=== PATIENT | male | born 1940 | race Caucasian/White ===

== ENCOUNTER 2017-10-17 12:43 | Inpatient (IN) | payer MEDICARE, OTHER ==
--- NOTE | 2017-10-17 17:42 | RAD ---
INDICATION: Ataxia. COMPARISON: There are no prior studies available for comparison. TECHNIQUE: Contiguous axial sections of the brain were obtained from the skull base to the vertex without contrast. FINDINGS: The ventricles, cisterns and sulci are enlarged consistent with age-related atrophy. There are small areas of decreased density in the subcortical and periventricular white matter suggestive of mild chronic small vessel ischemic changes. No mass effect is seen. There is no evidence for hemorrhage. No significant focal osseous abnormality is seen. The visualized portion of the paranasal sinuses and mastoid air cells appear clear. IMPRESSION: NO EVIDENCE FOR GROSS ACUTE INFARCT, MASS EFFECT OR HEMORRHAGE.
[2017-10-17 17:45] LABS: ABS Basophils 0 10^3/ul (0-0.2); ABS Eosinophils 0 10^3/ul (0-0.6); ABS Lymphocytes 2.2 10^3/ul (1.0-4.8); ABS Monocytes 0.9 10^3/ul (0-0.8); ABS Neutrophils 6.2 10^3/ul (1.5-7.7); ABS Nucleated RBC 0.03 10^3/ul; Eosinophil % 0.1 % (0-6); Hematocrit 45 % (42-52); Hemoglobin 15.5 g/dl (14.0-18.0); Lymphocyte % 23.4 % (25-47); Mean Corpuscular HGB Conc 35 g/dl (31-36); Mean Corpuscular Hemoglobin 29 pg (27-31); Mean Corpuscular Volume 84 fL (80-94); Mean Platelet Volume 8 um3 (7.4-10.4); Nucleated Red Blood Cells % 0.3; Platelet Count 260 10^3/ul (150-450); Red Blood Count 5.33 10^6/ul (4.0-5.4); Red Cell Distribution Width 14 % (10.5-15); White Blood Count 9.4 10^3/ul (3.5-10.8)
[2017-10-17 17:55] LABS: INR 1.49 (0.77-1.02)
[2017-10-17 18:03] LABS: EGFR Non-African American 45.6 (>60)
[2017-10-17 18:17] LABS: Monocytes % 8 % (0-13)
[2017-10-17 19:19] LABS: Urine Appearance Cloudy; Urine Blood Negative (Negative); Urine Color Amber; Urine Ketones Negative (Negative); Urine Protein 1+(30 mg/dL) (Negative); Urine Specific Gravity 1.021 (1.010-1.030); Urine Urobilinogen Positive (Negative)
--- NOTE | 2017-10-17 19:34 | RAD ---
INDICATION: Weakness. COMPARISON: Comparison is made with a prior chest x-ray study from February 01, 2016. TECHNIQUE: A portable view of the chest was obtained. FINDINGS: The heart is mildly enlarged and unchanged from the prior exam. The lungs are underinflated. There is a small infiltrate at the right lung base suggestive of atelectasis. No pleural effusion is seen. IMPRESSION: EXPIRATORY EXAM, SMALL RIGHT BASILAR FILTRATE SUGGESTIVE OF ATELECTASIS.
--- NOTE | 2017-10-17 19:54 | RAD ---
INDICATION: Weakness. COMPARISON: Comparison is made with a prior CT of the brain from October 17, 2017. TECHNIQUE: Sagittal T1, axial T1, T2, susceptibility, FLAIR and diffusion weighted images were obtained. FINDINGS: The ventricles, cisterns and sulci are prominent consistent with diffuse atrophy. There are focal areas of increased signal intensity on T2-weighted images present in the subcortical and periventricular white matter most consistent with moderate chronic small vessel ischemic changes. There is a small area of restricted diffusion measuring 6 mm in size in the posterior right parietal lobe suggestive of a small area of ischemia or a very small infarct. No other areas of restricted diffusion are noted. There is no evidence for hemorrhage. The visualized portion of the paranasal sinuses appear clear. There is a small effusion within the right mastoid air cells. IMPRESSION: 1. THERE IS A SMALL 6 MM FOCUS OF RESTRICTED DIFFUSION IN THE POSTERIOR RIGHT PARIETAL LOBE SUGGESTIVE OF A SMALL AREA OF ISCHEMIA OR INFARCT. 2. ATROPHY AND FINDINGS CONSISTENT WITH MODERATE CHRONIC SMALL VESSEL ISCHEMIC CHANGES.
--- NOTE | 2017-10-17 21:50 | ED ---
Selene Turner Gabriel, scribed for Torin Barboza MD on 10/17/17 at 1701 . Complex/Multi-Sys Presentation - HPI Summary HPI Summary: This patient is a 77 year old M presenting to [facility] accompanied by family with a chief complaint of general illness since 3 weeks ago. Patient reports congestion, loss of appetite, fatigue, cough, post nasal drip, difficulty swallowing, and unsteadiness when ambulating. Patient denies fever, urinary symptoms, and issues with bowel movements. Additionally his reports that he is unable to walk short distances due to extreme fatigue and that he is constantly falling asleep mid-day. - History Of Current Complaint Chief Complaint: EDGeneral Time Seen by Provider: 10/17/17 16:44 Hx Obtained From: Patient, Family/Label Rewinder Onset/Duration: Lasting Weeks - 3, Still Present Timing: Constant Severity Currently: Mild Severity Initially: Mild Associated Signs And Symptoms: Positive: Other - congestion, loss of appetite, fatigue, cough, post nasal drip, difficulty swallowing, and unsteadiness when ambulating - Allergies/Home Medications Allergies/Adverse Reactions: Allergies Allergy/AdvReac Type Severity Reaction Status Date / Time No Known Allergies Allergy Verified 10/17/17 14:46 Home Medications: Home Medications Apixaban* [Eliquis*] 5 mg PO BID 10/17/17 [History Confirmed 10/17/17] Diltiazem HCl Coated Beads [Diltiazem HCl ER] 180 mg PO DAILY 10/17/17 [History Confirmed 10/17/17] Fenofibrate(NF) [Tricor(NF)] 145 mg PO DAILY 10/17/17 [History Confirmed ] Glimepiride [Amaryl] 4 mg PO DAILY 10/17/17 [History Confirmed 10/17/17] Lisinopril 10 mg PO DAILY 10/17/17 [History Confirmed 10/17/17] Metformin HCl 500 mg PO BID 10/17/17 [History Confirmed 10/17/17] PMH/Surg Hx/FS Hx/Imm Hx Previously Healthy: No Endocrine/Hematology History: Reports: Hx Diabetes Denies: Hx Thyroid Disease Cardiovascular History: Reports: Hx Hypercholesterolemia, Hx Hypertension, Hx Valvular Heart Disease Denies: Hx Angina, Hx Coronary Artery Disease, Hx Myocardial Infarction Respiratory History: Denies: Hx Asthma, Hx Chronic Obstructive Pulmonary Disease (COPD) GI History: Denies: Hx Ulcer History: Reports: Hx Kidney Stones Sensory History: Reports: Hx Cataracts Opthamlomology History: Reports: Hx Cataracts - Surgical History Surgery Procedure, Year, and Place: Bladder stones Infectious Disease History: No Infectious Disease History: Denies: Hx Hepatitis, Hx Human Immunodeficiency Virus (HIV), History Other Infectious Disease, Traveled Outside the [place] in Last 30 Days - Family History Known Family History: Negative: Hypertension - Social History Lives: With Family Alcohol Use: None Substance Use Type: Reports: None Smoking Status (MU): Never Smoked Tobacco Review of Systems Positive: Fatigue, Other - loss of appetite, unsteady when ambulating . Negative: Fever Positive: Other - congestion, post nasal drip, trouble swallowing Positive: Cough Gastrointestinal: Negative - trouble with BM Positive: no symptoms reported All Other Systems Reviewed And Are Negative: Yes Physical Exam - Summary Physical Exam Summary: Appearance: The patient is well-nourished in no acute distress and in no acute pain. Gait is unsteady, patient lists to the left while sitting. Skin: The skin is warm and dry and skin color reflects adequate perfusion. HEENT: The head is normocephalic and atraumatic. The pupils are equal and reactive. The conjunctivae are clear and without drainage. Nares are patent and without drainage. Mouth reveals moist mucous membranes and the throat is without erythema and exudate. The external ears are intact. The ear canals are patent and without drainage. The tympanic membranes are intact. Neck: the neck is supple with full range of motion and non-tender. There are no carotid bruits. There is no neck vein distension. Respiratory: Chest is non-tender. Lungs are clear to auscultation and breath sounds are symmetrical and equal. Cardiovascular: Heart is regular rate and rhythm. There is no murmur or rub auscultated. There is no peripheral edema and pulses are symmetrical and equal. Abdomen: The abdomen is soft and non-tender. There are normal bowel sounds heard in all four quadrants and there is no organomegaly palpated. Musculoskeletal: There is no back tenderness noted. Extremities are non-tender with full range of motion. There is good capillary refill. There is no peripheral edema or calf tenderness elicited. Negative pronator drift Neurological: Patient is alert and oriented to person, place and time. The patient has symmetrical motor strength in all four extremities. Cranial nerves are grossly intact. Deep tendon reflexes are symmetrical and equal in all four extremities. Psychiatric: The patient has an appropriate affect and does not exhibit any anxiety or depression. Triage Information Reviewed: Yes Vital Signs On Initial Exam: Initial Vitals Temp Pulse Resp BP Pulse Ox 99.5 F 119 20 136/99 95 10/17/17 12:44 10/17/17 12:44 10/17/17 12:44 10/17/17 12:44 10/17/17 12:44 Vital Signs Reviewed: Yes - Delaney Coma Scale Coma Scale Total: 15 Diagnostics - Vital Signs Vital Signs Temp Pulse Resp BP Pulse Ox 10/17/17 14:43 100.6 F 142 22 126/76 93 10/17/17 12:44 99.5 F 119 20 136/99 95 - Laboratory Lab Results: Lab Results 10/17/17 10/17/17 10/17/17 Range/Units 17:36 17:36 17:36 WBC 9.4 (3.5-10.8) 10^3/ul RBC 5.33 (4.0-5.4) 10^6/ul Hgb 15.5 (14.0-18.0) g/dl Hct 45 (42-52) % MCV 84 (80-94) fL MCH 29 (27-31) pg MCHC 35 (31-36) g/dl RDW 14 (10.5-15) % Plt Count 260 (150-450) 10^3/ul MPV 8 (7.4-10.4) um3 Neut % (Auto) 66.2 (38-83) % Lymph % (Auto) 23.4 L (25-47) % Hinds % (Auto) 10.0 H (1-9) % Eos % (Auto) 0.1 (0-6) % Baso % (Auto) 0.3 (0-2) % Absolute Neuts (auto) 6.2 (1.5-7.7) 10^3/ul Absolute Lymphs (auto) 2.2 (1.0-4.8) 10^3/ul Absolute Monos (auto) 0.9 H (0-0.8) 10^3/ul Absolute Eos (auto) 0 (0-0.6) 10^3/ul Absolute Basos (auto) 0 (0-0.2) 10^3/ul Absolute Nucleated RBC 0.03 10^3/ul Neutrophils % 71 (38-83) % Lymphocytes % 7 L (25-47) % Reactive Lymphs % 14 H (0-6) % Monocytes % 8 (0-13) % Nucleated RBC % 0.3 Normal RBC Morphology Normal (Normal) INR (Anticoag Therapy) 1.49 H (0.77-1.02) Sodium 130 L (133-145) mmol/L Potassium 4.2 (3.5-5.0) mmol/L Chloride 94 L (101-111) mmol/L Carbon Dioxide 28 (22-32) mmol/L Anion Gap 8 (2-11) mmol/L BUN 18 (6-24) mg/dL Creatinine 1.50 H (0.67-1.17) mg/dL Est GFR ( Amer) 58.7 (>60) Est GFR (Non-Af Amer) 45.6 (>60) BUN/Creatinine Ratio 12.0 (8-20) Glucose 63 L (70-100) mg/dL Lactic Acid (0.5-2.0) mmol/L Calcium 8.7 (8.6-10.3) mg/dL Magnesium 1.8 L (1.9-2.7) mg/dL Total Bilirubin 0.80 (0.2-1.0) mg/dL AST 35 (13-39) U/L ALT 16 (7-52) U/L Alkaline Phosphatase 34 (34-104) U/L Troponin I 0.02 (<0.04) ng/mL C-Reactive Protein 98.36 H (< 5.00) mg/L Total Protein 7.0 (6.4-8.9) g/dL Albumin 3.4 (3.2-5.2) g/dL Globulin 3.6 (2-4) g/dL Albumin/Globulin Ratio 0.9 L (1-3) TSH 2.43 (0.34-5.60) mcIU/mL Urine Color Urine Appearance Urine pH (5-9) Ur Specific [place] (1.010-1.030) Urine Protein (Negative) Urine Ketones (Negative) Urine Blood (Negative) Urine Nitrate (Negative) Urine Bilirubin (Negative) Urine Urobilinogen (Negative) Ur Leukocyte Esterase (Negative) Urine WBC (Auto) (Absent) Urine RBC (Auto) (Absent) Ur Squamous Epith Cells (Absent) Urine Bacteria (Absent) Urine Glucose (Negative) 10/17/17 10/17/17 Range/Units 17:36 18:55 WBC (3.5-10.8) 10^3/ul RBC (4.0-5.4) 10^6/ul Hgb (14.0-18.0) g/dl Hct (42-52) % MCV (80-94) fL MCH (27-31) pg MCHC (31-36) g/dl RDW (10.5-15) % Plt Count (150-450) 10^3/ul MPV (7.4-10.4) um3 Neut % (Auto) (38-83) % Lymph % (Auto) (25-47) % Hinds % (Auto) (1-9) % Eos % (Auto) (0-6) % Baso % (Auto) (0-2) % Absolute Neuts (auto) (1.5-7.7) 10^3/ul Absolute Lymphs (auto) (1.0-4.8) 10^3/ul Absolute Monos (auto) (0-0.8) 10^3/ul Absolute Eos (auto) (0-0.6) 10^3/ul Absolute Basos (auto) (0-0.2) 10^3/ul Absolute Nucleated RBC 10^3/ul Neutrophils % (38-83) % Lymphocytes % (25-47) % Reactive Lymphs % (0-6) % Monocytes % (0-13) % Nucleated RBC % Normal RBC Morphology (Normal) INR (Anticoag Therapy) (0.77-1.02) Sodium (133-145) mmol/L Potassium (3.5-5.0) mmol/L Chloride (101-111) mmol/L Carbon Dioxide (22-32) mmol/L Anion Gap (2-11) mmol/L BUN (6-24) mg/dL Creatinine (0.67-1.17) mg/dL Est GFR ( Amer) (>60) Est GFR (Non-Af Amer) (>60) BUN/Creatinine Ratio (8-20) Glucose (70-100) mg/dL Lactic Acid 1.9 (0.5-2.0) mmol/L Calcium (8.6-10.3) mg/dL Magnesium (1.9-2.7) mg/dL Total Bilirubin (0.2-1.0) mg/dL AST (13-39) U/L ALT (7-52) U/L Alkaline Phosphatase (34-104) U/L Troponin I (<0.04) ng/mL C-Reactive Protein (< 5.00) mg/L Total Protein (6.4-8.9) g/dL Albumin (3.2-5.2) g/dL Globulin (2-4) g/dL Albumin/Globulin Ratio (1-3) TSH (0.34-5.60) mcIU/mL Urine Color Jessica Urine Appearance Cloudy Urine pH 5.0 (5-9) Ur Specific [place] 1.021 (1.010-1.030) Urine Protein 1+(30 mg/dl) H (Negative) Urine Ketones Negative (Negative) Urine Blood Negative (Negative) Urine Nitrate Negative (Negative) Urine Bilirubin Negative (Negative) Urine Urobilinogen Positive H (Negative) Ur Leukocyte Esterase Negative (Negative) Urine WBC (Auto) Trace(0-5/hpf) (Absent) Urine RBC (Auto) Trace(0-2/hpf) (Absent) Ur Squamous Epith Cells Present H (Absent) Urine Bacteria Absent (Absent) Urine Glucose Negative (Negative) Result Diagrams: 10/17/17 17:36 10/17/17 17:36 Lab Statement: Any lab studies that have been ordered have been reviewed, and results considered in the medical decision making process. - CT CT Brain CT Interpretation Completed By: Radiologist - NO EVIDENCE FOR GROSS ACUTE INFARCT, MASS EFFECT OR HEMORRHAGE. ED physician has reviewed this radiology report. - EKG 0354 Cardiac Rate: Tachycardia EKG Rhythm: Atrial Flutter - at 119 BPM EKG Interpretation: RBBB, RVR - Additional Comments Diagnostic Additional Comments: Brain MRI reveals, per radiologist, 1. THERE IS A SMALL 6 MM FOCUS OF RESTRICTED DIFFUSION IN THE POSTERIOR RIGHT PARIETAL LOBE SUGGESTIVE OF A SMALL AREA OF ISCHEMIA OR INFARCT. 2. ATROPHY AND FINDINGS CONSISTENT WITH MODERATE CHRONIC SMALL VESSEL ISCHEMIC CHANGES. ED physician has reviewed this radiology report. Complex Multi-Symp Course/Dx Course Of Treatment: Mr. Kaur presented with some disparate symptoms that have been present for a couple weeks. He was quite off balance when trying to sit up and/or ambulate. An MRI showed a CVA and Dr. House recommended admission for further W/U and to switch him from elliquis to anonther anticoagulant. - Diagnoses Provider Diagnoses: CVA (cerebral vascular accident) - Physician Notifications Discussed Care Of Patient With: Trevon House Time Discussed With Above Provider: 20:35 Instructed by Provider To: Other - Dr. House, neurology recommends that the patient should be admitted. Discharge - Discharge Plan Condition: Stable Disposition: ADMITTED TO [facility] Referrals: Trevon Nieves MD [Primary Care Provider] - Consult Consult: 20:42 Discussed patient care with hospitalist, Dr. Nicholson and he has agreed to admit the patient. The documentation as recorded by the Selene casillas Gabriel accurately reflects the service I personally performed and the decisions made by me, Torin Barboza MD.
[2017-10-17] MEDS ORDERED: Ondansetron INJ* 2 MG/ML VIAL IV PRN (22:01)
[2017-10-17] MEDS ORDERED: Acetaminophen TAB* 325 MG PO ONE (22:10)
[2017-10-17] MEDS ORDERED: Levofloxacin TAB* 750 MG PO SCH (23:00)
[2017-10-17] MEDS ORDERED: NS 0.9% 1000 ML* 1,000 ML IV ONE (23:36)
[2017-10-17] MEDS ORDERED: Levofloxacin 750 MG IVPREMIX(* 750 MG/150 ML BAG IVPB SCH (23:45)
[2017-10-17] MEDS ORDERED: Apixaban* 5 MG TAB PO ONE (23:45)
[2017-10-18] MEDS: NS 0.9% 1000 ML* 2,000 ML IV ONE ×2 (00:05→01:34)
[2017-10-18] MEDS: NS 0.9% 1000 ML* 1,000 ML IV SCH ×3 (00:08→20:01)
--- NOTE | 2017-10-18 01:13 | HP ---
ADMITTING HISTORY AND PHYSICAL: DATE OF ADMISSION: 10/17/17 PRIMARY CARE PROVIDER: Dr. Nieves in [place]. HEALTHCARE PROXY: . CODE STATUS: Full. SOURCE OF INFORMATION: History obtained from interview with the patient and his and the rest of his family. RELIABILITY: Fair. CHIEF COMPLAINT: Unsteady gait, decreased energy. HISTORY OF PRESENT ILLNESS: This is a 77-year-old man with a past medical history of atrial fibrillation, diabetes, hypertension, who has been in his usual state of health until approximately 2 weeks prior to presentation, started to notice decreased energy associated with decreasing sleep at night. He will frequently wake up now earlier in the morning around 5 a.m., concurrently sleep more during the day. His noticed he would wake up, eat breakfast, go right back to sleep which is new for him. Of note, he has recently had a Holter monitor and was recommended to decrease caffeine intake, stop drinking coffee; however, only constituted 1 cup for a day prior to discontinuing approximately 2 weeks prior. Around the same time, approximately 2 weeks prior, he started to notice increasing bloating associated with difficulty swallowing solids, but not liquids. Frequently he has been chewing food longer and it "feels like a constriction," but notes no choking, no pain with swallowing. Because of the difficulty in swallowing, he has been eating less over the last 2 weeks without associated diarrhea or constipation. He has been active, he hunts regularly. He has had no difficulty with ambulating; however, over the last week, his family has noted changes in his gait and now appears more shuffling and wobbly after standing. His son notes that there is a single step on their first floor and that he now uses the wall to traverse that 1 step, although the patient has not noted asymmetric weakness or changes in his gait. He has denied any lightheadedness or headache. No nausea, no diplopia, or changes in his vision. No fevers, chills, cough, chest pain, shortness of breath, or changes to medications. When seen in the emergency room, he had developed a fever to 100.3. Hospitalist service was consulted for admission. PAST MEDICAL HISTORY: 1. Type 2 diabetes. 2. Hypertension. 3. Atrial fibrillation. 4. Corneal implant. 5. Cataract surgery. 6. He had bladder stones status post removal. 7. Right eye blindness. MEDICATIONS: Reviewed: 1. Glimepiride 4 mg daily. 2. Lisinopril 10 mg daily. 3. Diltiazem ER 180 mg daily. 4. Eliquis 5 mg twice daily. 5. Metformin 500 mg twice daily. 6. TriCor 145 mg daily. ALLERGIES: No known drug allergies. FAMILY HISTORY: Mother with MS. Father with history of depression and suicide. SOCIAL HISTORY: No tobacco. Rare alcohol. Retired, educated. Active, ambulates unassisted. REVIEW OF SYSTEMS: As per HPI, includes increasing fatigue, decreased oral intake, abdominal bloating, shuffling gait, decreased balance, decreased sleep overnight with increased daytime sleepiness, odynophagia, more difficult with solid foods. Otherwise, all other systems negative. PHYSICAL EXAMINATION GENERAL: Sitting up in bed, interactive, pleasant, in no apparent distress. VITAL SIGNS: In the emergency room 126/76, heart rate between 110 and 142 in the emergency room, respiratory rate 16 when seen by this author, 92% on room air, T- max 100.6 HEENT: He has a small ulceration on the tip of his tongue. Moist mucous membranes. Sclerae are anicteric. Extraocular muscles were intact. Pupils are equal, round, and reactive to light. Palate elevates symmetrically. NECK: He has a non-elevated JVD. LUNGS: His lungs have decreased breath sounds in the left base approximately one- quarter that way. No rales or rhonchi or wheezes. Symmetric airway expansion HEART: Irregularly irregular heart rate. He is tachycardic. No murmurs, rubs , or gallops. ABDOMEN: Soft, nontender, and nondistended with positive bowel sounds. EXTREMITIES: Warm and well perfused. No clubbing, cyanosis, or edema. NEUROLOGIC: He is alert and oriented x3. His cranial nerves as tested are intact, although blind in right eye. Sensation intact. Seventh nerve intact. He has right pronator drift. He has 5/5 strength throughout. No apparent anxiety, agitation, or depression. DIAGNOSTIC STUDIES/LABORATORY DATA: Laboratory data reviewed. White blood cell count of 9.5, 66% neutrophils, hemoglobin is 15.5, platelets 260. INR is 1.49. Sodium 130, potassium 4.2, chloride 94, BUN 18, creatinine 1.5. Glucose 63 on presentation, repeat [id number] glucose 75 after interview with this author. Lactic acid 1.9. CRP 98. Troponin I 0.02. TSH is 2.4. His urine is positive for squamous epithelial cells, urobilinogen, and protein. Pertinent data reviewed: EKG atrial flutter, ventricular rate 119 on presentation, left axis. Right bundle-branch block. Chest x-ray. Formal impression: Small right basilar infiltrate suggestive of atelectasis. Brain MRI. Impression: There is a small 6-mm focus of restricted diffusion in the posterior right parietal lobe suggestive of a small area of ischemia or infarction. Atrophy and findings consistent with moderate chronic small vessel ischemic changes. ASSESSMENT AND PLAN: This is a 77-year-old man with a past medical history of atrial flutter, diabetes, hypertension presenting with constellation of symptoms including increased weakness, unsteady gait, and odynophagia, found with low-grade fever, tachycardia, and relative hypoglycemia on presentation. 1. Cerebrovascular accident. Small area of restricted diffusion, unclear if this was found incidentally or etiology of some of his symptoms; however, size of this infarct and location cannot explain constellation of his symptoms. At this point, we will continue apixaban. It was asked Neurology to consult. 2. Fever with elevated C-reactive protein. Suspect infection contributing to changes in his energy level, appetite, and potentially his gait. No active source identified; however, lung sounds are decreased in the left, not correlated with the chest x-ray. My higher suspicion is for pneumonia, either viral or bacterial. Dose Levaquin p.o., one dose now. Dose for creatinine clearance of 40. Based on ideal body weight, 750 mg every other day. Added on procalcitonin to ER labs and remains pending. 3. Hypoglycemia in the setting of glimepiride with decreased oral intake. Hypoglycemia at home may have been more severe and also been contributing to the patient's sleepiness and/or changes in gait. Holding glimepiride now. Continue metformin, fingersticks with meals. Lower blood sugar may also be in the setting of infection and worsening kidney function. 4. Acute on chronic kidney disease. Suspect in the setting of dehydration in the setting of eating less. Normal saline for 2 additional liters now. 5. Type 2 diabetes. Check hemoglobin A1c. Continue fingersticks as above. Continue metformin. Hold additional medications. 6. Odynophagia with difficulty swallowing solids. We will place on full liquid diet. Unclear if this is associated with his presentation; however, may require endoscopy for further evaluation. 7. Atrial fibrillation, tachycardic on presentation with rapid ventricular rate , improved with fluids. Suspect tachycardia in the setting of fever at this time. Fluids as above. Treat heart rates greater than 120 with additional AV amber blockade. Continue diltiazem and Eliquis. 8. Hypertension. Continue diltiazem, holding lisinopril in the setting of acute on chronic kidney disease. 9. DVT prophylaxis: Eliquis. 10. Code status is full. [id number]/CPS #: [id number] MTDD
[2017-10-18 07:14] LABS: ABS Basophils 0.1 10^3/ul (0-0.2); ABS Eosinophils 0 10^3/ul (0-0.6); ABS Lymphocytes 1.1 10^3/ul (1.0-4.8); ABS Monocytes 0.7 10^3/ul (0-0.8); ABS Neutrophils 5.2 10^3/ul (1.5-7.7); ABS Nucleated RBC 0.02 10^3/ul; Eosinophil % 0.2 % (0-6); Hematocrit 40 % (42-52); Hemoglobin 13.8 g/dl (14.0-18.0); Lymphocyte % 15.7 % (25-47); Mean Corpuscular HGB Conc 35 g/dl (31-36); Mean Corpuscular Hemoglobin 29 pg (27-31); Mean Corpuscular Volume 84 fL (80-94); Mean Platelet Volume 8 um3 (7.4-10.4); Nucleated Red Blood Cells % 0.3; Platelet Count 219 10^3/ul (150-450); Red Blood Count 4.73 10^6/ul (4.0-5.4); Red Cell Distribution Width 14 % (10.5-15); White Blood Count 7.1 10^3/ul (3.5-10.8)
[2017-10-18 07:29] LABS: EGFR Non-African American 56.8 (>60)
[2017-10-18] MEDS: Apixaban* 5 MG TAB PO SCH ×2 (08:04→20:02)
[2017-10-18] MEDS: CMCS:Fenofibrate(NF) 145 MG TAB PO SCH (08:05)
[2017-10-18] MEDS: Diltiazem CD CAP* 180 MG PO SCH (08:05)
[2017-10-18] MEDS: Acetaminophen TAB* 325 MG PO PRN ×3 (08:26→20:02)
[2017-10-18] MEDS ORDERED: metFORMIN* 500 MG TAB PO SCH (09:00)
--- NOTE | 2017-10-18 09:54 | PN ---
Subjective Date of Service: 10/18/17 Interval History: Pt is feeling quite poor. He states he has a fever currently and is sweating profusely. He feels very tired and run down. He has had 3-4 loose BMs since admission. Objective Active Medications: Acetaminophen (Tylenol Tab*) 650 mg PO Q4H PRN PRN Reason: FEVER/PAIN Last Admin: 10/18/17 08:26 Dose: 650 mg Apixaban (Eliquis*) 5 mg PO BID [facility] Last Admin: 10/18/17 08:04 Dose: 5 mg Diltiazem HCl (Cardizem Cd Cap*) 180 mg PO DAILY [facility] Last Admin: 10/18/17 08:05 Dose: 180 mg Fenofibrate (Tricor(Nf)) 145 mg PO DAILY [facility] PRN Reason: Protocol Last Admin: 10/18/17 08:05 Dose: 145 mg Sodium Chloride (Ns 0.9% 1000 Ml*) 1,000 mls @ 125 mls/hr IV PER RATE [facility] Stop: 10/19/17 06:14 Last Admin: 10/18/17 09:01 Dose: 125 mls/hr Levofloxacin/Dextrose (Levaquin 750 Mg Ivpremix(*)) 750 mg in 150 mls @ 100 mls /hr IVPB Q48H [facility] Last Admin: 10/18/17 00:10 Dose: 100 mls/hr Sodium Chloride (Ns 0.9% 1000 Ml*) 1,000 mls @ 100 mls/hr IV PER RATE [facility] Metformin HCl (Glucophage*) 500 mg PO BID [facility] Last Admin: 10/18/17 08:04 Dose: 500 mg Ondansetron HCl (Zofran Inj*) 4 mg IV Q4H PRN PRN Reason: NAUSEA/VOMITING Vital Signs - 8 hr 10/18/17 10/18/17 10/18/17 04:00 07:59 08:00 Temperature 98.1 F 101.1 F Pulse Rate 102 103 Respiratory 16 18 20 Rate Blood Pressure 117/68 110/51 (mmHg) O2 Sat by Pulse 90 94 Oximetry Oxygen Devices in Use Now: None Appearance: Elderly male lying in bed, NAD Eyes: No Scleral Icterus Ears/Nose/Mouth/Throat: Mucous Membranes Moist Respiratory: Symmetrical Chest Expansion and Respiratory Effort, Clear to Auscultation Cardiovascular: NL Sounds; No Murmurs; No JVD, No Edema, - - irregularly irregular, mildly tachycardic Abdominal: NL Sounds; No Tenderness; No Distention Extremities: No Clubbing, Cyanosis Skin: No Nodules or Sclerosis, - - approximate 1.5cm in diameter shallow ulceration overlying L zygomatic arch Result Diagrams: 10/18/17 07:01 10/18/17 07:01 Additional Lab and Data: Lab Results 10/17/17 10/17/17 10/17/17 Range/Units 17:36 17:36 17:36 WBC 9.4 (3.5-10.8) 10^3/ul RBC 5.33 (4.0-5.4) 10^6/ul Hgb 15.5 (14.0-18.0) g/dl Hct 45 (42-52) % MCV 84 (80-94) fL MCH 29 (27-31) pg MCHC 35 (31-36) g/dl RDW 14 (10.5-15) % Plt Count 260 (150-450) 10^3/ul MPV 8 (7.4-10.4) um3 Neut % (Auto) 66.2 (38-83) % Lymph % (Auto) 23.4 L (25-47) % [place] % (Auto) 10.0 H (1-9) % Eos % (Auto) 0.1 (0-6) % Baso % (Auto) 0.3 (0-2) % Absolute Neuts (auto) 6.2 (1.5-7.7) 10^3/ul Absolute Lymphs (auto) 2.2 (1.0-4.8) 10^3/ul Absolute Monos (auto) 0.9 H (0-0.8) 10^3/ul Absolute Eos (auto) 0 (0-0.6) 10^3/ul Absolute Basos (auto) 0 (0-0.2) 10^3/ul Absolute Nucleated RBC 0.03 10^3/ul Neutrophils % 71 (38-83) % Lymphocytes % 7 L (25-47) % Reactive Lymphs % 14 H (0-6) % Monocytes % 8 (0-13) % Nucleated RBC % 0.3 Normal RBC Morphology Normal (Normal) INR (Anticoag Therapy) 1.49 H (0.77-1.02) Sodium 130 L (133-145) mmol/L Potassium 4.2 (3.5-5.0) mmol/L Chloride 94 L (101-111) mmol/L Carbon Dioxide 28 (22-32) mmol/L Anion Gap 8 (2-11) mmol/L BUN 18 (6-24) mg/dL Creatinine 1.50 H (0.67-1.17) mg/dL Est GFR ( Amer) 58.7 (>60) Est GFR (Non-Af Amer) 45.6 (>60) BUN/Creatinine Ratio 12.0 (8-20) Glucose 63 L (70-100) mg/dL Lactic Acid (0.5-2.0) mmol/L Calcium 8.7 (8.6-10.3) mg/dL Magnesium 1.8 L (1.9-2.7) mg/dL Total Bilirubin 0.80 (0.2-1.0) mg/dL AST 35 (13-39) U/L ALT 16 (7-52) U/L Alkaline Phosphatase 34 (34-104) U/L Troponin I 0.02 (<0.04) ng/mL C-Reactive Protein 98.36 H (< 5.00) mg/L Total Protein 7.0 (6.4-8.9) g/dL Albumin 3.4 (3.2-5.2) g/dL Globulin 3.6 (2-4) g/dL Albumin/Globulin Ratio 0.9 L (1-3) TSH 2.43 (0.34-5.60) mcIU/mL Urine Color Urine Appearance Urine pH (5-9) Ur Specific [place] (1.010-1.030) Urine Protein (Negative) Urine Ketones (Negative) Urine Blood (Negative) Urine Nitrate (Negative) Urine Bilirubin (Negative) Urine Urobilinogen (Negative) Ur Leukocyte Esterase (Negative) Urine WBC (Auto) (Absent) Urine RBC (Auto) (Absent) Ur Squamous Epith Cells (Absent) Urine Bacteria (Absent) Urine Glucose (Negative) 10/17/17 10/17/17 Range/Units 17:36 18:55 WBC (3.5-10.8) 10^3/ul RBC (4.0-5.4) 10^6/ul Hgb (14.0-18.0) g/dl Hct (42-52) % MCV (80-94) fL MCH (27-31) pg MCHC (31-36) g/dl RDW (10.5-15) % Plt Count (150-450) 10^3/ul MPV (7.4-10.4) um3 Neut % (Auto) (38-83) % Lymph % (Auto) (25-47) % [place] % (Auto) (1-9) % Eos % (Auto) (0-6) % Baso % (Auto) (0-2) % Absolute Neuts (auto) (1.5-7.7) 10^3/ul Absolute Lymphs (auto) (1.0-4.8) 10^3/ul Absolute Monos (auto) (0-0.8) 10^3/ul Absolute Eos (auto) (0-0.6) 10^3/ul Absolute Basos (auto) (0-0.2) 10^3/ul Absolute Nucleated RBC 10^3/ul Neutrophils % (38-83) % Lymphocytes % (25-47) % Reactive Lymphs % (0-6) % Monocytes % (0-13) % Nucleated RBC % Normal RBC Morphology (Normal) INR (Anticoag Therapy) (0.77-1.02) Sodium (133-145) mmol/L Potassium (3.5-5.0) mmol/L Chloride (101-111) mmol/L Carbon Dioxide (22-32) mmol/L Anion Gap (2-11) mmol/L BUN (6-24) mg/dL Creatinine (0.67-1.17) mg/dL Est GFR ( Amer) (>60) Est GFR (Non-Af Amer) (>60) BUN/Creatinine Ratio (8-20) Glucose (70-100) mg/dL Lactic Acid 1.9 (0.5-2.0) mmol/L Calcium (8.6-10.3) mg/dL Magnesium (1.9-2.7) mg/dL Total Bilirubin (0.2-1.0) mg/dL AST (13-39) U/L ALT (7-52) U/L Alkaline Phosphatase (34-104) U/L Troponin I (<0.04) ng/mL C-Reactive Protein (< 5.00) mg/L Total Protein (6.4-8.9) g/dL Albumin (3.2-5.2) g/dL Globulin (2-4) g/dL Albumin/Globulin Ratio (1-3) TSH (0.34-5.60) mcIU/mL Urine Color Jessica Urine Appearance Cloudy Urine pH 5.0 (5-9) Ur Specific [place] 1.021 (1.010-1.030) Urine Protein 1+(30 mg/dl) H (Negative) Urine Ketones Negative (Negative) Urine Blood Negative (Negative) Urine Nitrate Negative (Negative) Urine Bilirubin Negative (Negative) Urine Urobilinogen Positive H (Negative) Ur Leukocyte Esterase Negative (Negative) Urine WBC (Auto) Trace(0-5/hpf) (Absent) Urine RBC (Auto) Trace(0-2/hpf) (Absent) Ur Squamous Epith Cells Present H (Absent) Urine Bacteria Absent (Absent) Urine Glucose Negative (Negative) Microbiology and Other Data: Microbiology 10/18/17 02:52 Stool Gross Appearance - Final Stool C. difficile DNA Amplification - Final 027 Presumptive NEGATIVE Toxigenic C.diff NEGATIVE Assess/Plan/Problems-Billing Mr Kaur is a 77 yo M who has a h/o afib, type II DM and HTN who presented to the ER with c/o unsteady gait and decreased energy and weakness and was found to have a small R posterior parietal lobe infarct and was also found to have fever. - Patient Problems (1) Fever Current Visit: Yes Status: Acute Code(s): R50.9 - FEVER, UNSPECIFIED SNOMED Code(s): 965375408 Comment: The patient has been having frequent fevers of >101. No clear source of infection has been identified yet. Will send rapid influenza swab. He has also been having diarrhea. ? gastroenteritis. Stool culture ordered. Cdiff negative. Will continue levaquin for now as there is a small R basilar infiltrate but he has not been coughing. (2) Atrial fibrillation with RVR Current Visit: Yes Status: Acute Code(s): I48.91 - UNSPECIFIED ATRIAL FIBRILLATION SNOMED Code(s): 293747199237988 Comment: THe patient remains in afib but mildly tachycardic at times. Likely related to his fever. Will continue diltiazem CD and eliquis. No adjustments at this time in his regimen. (3) HTN (hypertension) Current Visit: Yes Status: Acute Code(s): I10 - ESSENTIAL (PRIMARY) HYPERTENSION SNOMED Code(s): 20753061 Comment: BP is under good control on just diltiazem. Lisinopril on hold due to slightly elevated creatinine compared to baseline. (4) Type II diabetes mellitus Current Visit: Yes Status: Acute Comment: Sugars are low in the 60-70's. Hold all oral hypoglycemics for now and utilize just sliding scale. (5) DVT prophylaxis Current Visit: Yes Status: Acute Code(s): UYH9205 - SNOMED Code(s): 485067441 Comment: christa (6) Full code status Current Visit: Yes Status: Acute Code(s): Z78.9 - OTHER SPECIFIED HEALTH STATUS SNOMED Code(s): 351170136
[2017-10-18] MEDS ORDERED: Dextrose 50% Syringe 50 ML* 25 GM/50 ML SYRINGE IV PUSH PRN (10:14)
[2017-10-18] MEDS: Insulin LISPRO* 1 UNITS UNIT SUBCUT SCH ×2 (12:01→16:31)
--- NOTE | 2017-10-18 18:05 | RAD ---
INDICATION: Fever. COMPARISON: Comparison is made with a prior chest x-ray study from October 17, 2017. TECHNIQUE: AP and lateral views of the chest were obtained. FINDINGS: The heart is mildly enlarged and unchanged from the prior exam. There is a small right basilar infiltrate which appears unchanged. No pleural effusion is seen. IMPRESSION: SMALL RIGHT BASILAR INFILTRATE.
--- NOTE | 2017-10-18 21:38 | CONS ---
CONSULTATION REPORT: DATE OF CONSULT: 10/18/17 REQUESTING PHYSICIAN: Dr. Sorensen. CONSULTING SERVICE: Infectious Disease. REASON FOR CONSULT: Fever. IMPRESSION: 1. Two weeks of malaise and mild anorexia, admitted with worsening lethargy, malaise, gait unsteadiness, found to have a small stroke in the parietal lobe, febrile here. His blood cultures are pending. His urinalysis negative. He does not have any focal signs or symptoms. A chest x-ray showed atelectasis. He has had no cough. He has had some runny darlyn, postnasal drip. Differential diagnosis includes rhinovirus or other viral infection. Influenza was negative. He has not had much myalgia. 2. Type 2 diabetes. 3. Atrial fibrillation. RECOMMENDATION: Recheck a chest x-ray PA and lateral. We will await his blood cultures. If they are negative, we will stop the antibiotics. We will check another procalcitonin, which was negative initially, and see if there has been a change. HISTORY OF PRESENT ILLNESS: This 77-year-old man with diabetes, had a week or two of decreased appetite and malaise, spending more and more time in bed without any focal symptoms, then he came to the hospital because symptoms progressed. He was found to have a right parietal infarct on brain MRI. He is febrile here including 101 tonight and 102 last night. During the day today, he had increased energy. Appetite was pretty good for the first time, but tonight is feeling ill again. His chest x-ray showed atelectasis. He has had no leukocytosis. Procalcitonin was negative. Urinalysis showed no ketones, no blood, no leukocyte esterase. ALT is normal. He does have reactive lymphocytosis. PAST MEDICAL HISTORY: 1. Diabetes. 2. Obesity. 3. Atrial fibrillation. 4. Hypertension. 5. Corneal implant. 6. Bladder stone extraction. 7. Right eye blindness. MEDICATIONS: 1. Tylenol. 2. Apixaban. 3. Diltiazem. 4. Fenofibrate. 5. Levaquin 750 mg IV daily. 6. Zofran. ALLERGIES: No known drug allergies. FAMILY HISTORY: Father, depression, from suicide. Mother had MS. SOCIAL HISTORY: Lives in [place]. 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 No travel. No sick contacts. 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 REVIEW OF SYSTEMS: A 14-point review of systems was negative except as noted above. PHYSICAL EXAM: Vital Signs: Temperature 38, heart rate 90, respiratory rate 20 , blood pressure 120/55, O2 sat 95% on room air. In general, he is awake, not in distress. Neurologic: He is oriented x3, follows all commands. HEENT: There is no conjunctival hemorrhage. Oropharynx: Without lesions. Neck: Supple without nuchal rigidity. Lymph Nodes: There is no inguinal, axillary, or epitrochlear lymphadenopathy. Heart has regular rate and rhythm without murmurs, rubs, or gallops. Lungs are clear to auscultation bilaterally. Abdomen: Soft, nontender, nondistended. There are bowel sounds present. Skin: There is no rash or splinter hemorrhages. Musculoskeletal: There is no spine tenderness to palpation. There is no joint synovitis. There is no log roll of the hips bilaterally. LABORATORY DATA: White blood cell count 7, hemoglobin 13.8, platelets 219. Creatinine is 1.2. CRP was 98 on admission. Please see impressions and recommendations as outlined above. Thanks for asking me to see Mr. Kaur in consultation. [id number]/[facility] #: [id number] NIR
[2017-10-19] MEDS: Acetaminophen TAB* 325 MG PO PRN ×3 (05:52→22:50)
[2017-10-19] MEDS: Levofloxacin 750 MG IVPREMIX(* 750 MG/150 ML BAG IVPB SCH (05:53)
[2017-10-19 06:06] LABS: Hematocrit 38 % (42-52); Mean Corpuscular HGB Conc 34 g/dl (31-36); Mean Corpuscular Hemoglobin 29 pg (27-31); Mean Corpuscular Volume 85 fL (80-94); Mean Platelet Volume 9 um3 (7.4-10.4); Platelet Count 231 10^3/ul (150-450); Red Blood Count 4.47 10^6/ul (4.0-5.4); Red Cell Distribution Width 14 % (10.5-15); White Blood Count 7.3 10^3/ul (3.5-10.8)
[2017-10-19 06:20] LABS: EGFR Non-African American 54.3 (>60)
[2017-10-19] MEDS: Insulin LISPRO* 1 UNITS UNIT SUBCUT SCH ×3 (08:00→18:39)
[2017-10-19] MEDS: Diltiazem CD CAP* 180 MG PO SCH (08:28)
[2017-10-19] MEDS: Apixaban* 5 MG TAB PO SCH ×2 (08:28→22:47)
[2017-10-19] MEDS: CMCS:Fenofibrate(NF) 145 MG TAB PO SCH (08:29)
--- NOTE | 2017-10-19 15:07 | PN ---
Subjective Date of Service: 10/19/17 Interval History: Patient seen and examined, family at bedside. Family initially very upset, thinking the patient has some sort of colon cancer and was demanding a colonoscopy. Explained that this procedure is not clinically indicated for this admission, that there is no diarrhea, no apparent GI infection and no active bleeding at present. HgB is stable, as are VS. Patient denies fever at present but seems to have mild chills, no headache or chest pain, no SOB, no n/v/d. No further complaints. Objective Active Medications: Acetaminophen (Tylenol Tab*) 650 mg PO Q4H PRN PRN Reason: FEVER/PAIN Last Admin: 10/19/17 05:52 Dose: 650 mg Apixaban (Eliquis*) 5 mg PO BID [facility] Last Admin: 10/19/17 08:28 Dose: 5 mg Dextrose (D50w Syringe 50 Ml*) 12.5 gm IV PUSH .FOR FS < 60 - SS PRN PRN Reason: FS < 60 Diltiazem HCl (Cardizem Cd Cap*) 180 mg PO DAILY [facility] Last Admin: 10/19/17 08:28 Dose: 180 mg Fenofibrate (Tricor(Nf)) 145 mg PO DAILY [facility] PRN Reason: Protocol Last Admin: 10/19/17 08:29 Dose: 145 mg Sodium Chloride (Ns 0.9% 1000 Ml*) 1,000 mls @ 100 mls/hr IV PER RATE [facility] Last Admin: 10/18/17 20:01 Dose: 100 mls/hr Levofloxacin/Dextrose (Levaquin 750 Mg Ivpremix(*)) 750 mg in 150 mls @ 100 mls /hr IVPB Q24H [facility] Last Admin: 10/19/17 05:53 Dose: 100 mls/hr Insulin Human Lispro (Humalog*) 0 units SUBCUT AC [facility] PRN Reason: Protocol Last Admin: 10/19/17 12:34 Dose: 1 unit Ondansetron HCl (Zofran Inj*) 4 mg IV Q4H PRN PRN Reason: NAUSEA/VOMITING Vital Signs - 8 hr 10/19/17 10/19/17 10/19/17 07:47 08:00 11:22 Temperature 99.1 F 98.7 F Pulse Rate 95 88 Respiratory 22 22 20 Rate Blood Pressure 106/63 107/67 (mmHg) O2 Sat by Pulse 92 94 Oximetry Oxygen Devices in Use Now: None Appearance: Alert, NAD Eyes: No Scleral Icterus, PERRLA Ears/Nose/Mouth/Throat: NL Teeth, Lips, Gums, Mucous Membranes Moist Neck: NL Appearance and Movements; NL JVP, Trachea Midline Respiratory: Symmetrical Chest Expansion and Respiratory Effort, Clear to Auscultation Cardiovascular: NL Sounds; No Murmurs; No JVD, - - afib, controlled ventricular response Abdominal: NL Sounds; No Tenderness; No Distention Extremities: No Edema, No Clubbing, Cyanosis Skin: No Rash or Ulcers Neurological: Alert and Oriented x 3, NL Sensation, NL Muscle Strength and Tone Nutrition: Taking PO's Result Diagrams: 10/19/17 05:19 10/19/17 05:19 Additional Lab and Data: Lab Results 10/17/17 10/17/17 10/17/17 Range/Units 17:36 17:36 17:36 WBC 9.4 (3.5-10.8) 10^3/ul RBC 5.33 (4.0-5.4) 10^6/ul Hgb 15.5 (14.0-18.0) g/dl Hct 45 (42-52) % MCV 84 (80-94) fL MCH 29 (27-31) pg MCHC 35 (31-36) g/dl RDW 14 (10.5-15) % Plt Count 260 (150-450) 10^3/ul MPV 8 (7.4-10.4) um3 Neut % (Auto) 66.2 (38-83) % Lymph % (Auto) 23.4 L (25-47) % [place] % (Auto) 10.0 H (1-9) % Eos % (Auto) 0.1 (0-6) % Baso % (Auto) 0.3 (0-2) % Absolute Neuts (auto) 6.2 (1.5-7.7) 10^3/ul Absolute Lymphs (auto) 2.2 (1.0-4.8) 10^3/ul Absolute Monos (auto) 0.9 H (0-0.8) 10^3/ul Absolute Eos (auto) 0 (0-0.6) 10^3/ul Absolute Basos (auto) 0 (0-0.2) 10^3/ul Absolute Nucleated RBC 0.03 10^3/ul Neutrophils % 71 (38-83) % Lymphocytes % 7 L (25-47) % Reactive Lymphs % 14 H (0-6) % Monocytes % 8 (0-13) % Nucleated RBC % 0.3 Normal RBC Morphology Normal (Normal) INR (Anticoag Therapy) 1.49 H (0.77-1.02) Sodium 130 L (133-145) mmol/L Potassium 4.2 (3.5-5.0) mmol/L Chloride 94 L (101-111) mmol/L Carbon Dioxide 28 (22-32) mmol/L Anion Gap 8 (2-11) mmol/L BUN 18 (6-24) mg/dL Creatinine 1.50 H (0.67-1.17) mg/dL Est GFR ( Amer) 58.7 (>60) Est GFR (Non-Af Amer) 45.6 (>60) BUN/Creatinine Ratio 12.0 (8-20) Glucose 63 L (70-100) mg/dL Lactic Acid (0.5-2.0) mmol/L Calcium 8.7 (8.6-10.3) mg/dL Magnesium 1.8 L (1.9-2.7) mg/dL Total Bilirubin 0.80 (0.2-1.0) mg/dL AST 35 (13-39) U/L ALT 16 (7-52) U/L Alkaline Phosphatase 34 (34-104) U/L Troponin I 0.02 (<0.04) ng/mL C-Reactive Protein 98.36 H (< 5.00) mg/L Total Protein 7.0 (6.4-8.9) g/dL Albumin 3.4 (3.2-5.2) g/dL Globulin 3.6 (2-4) g/dL Albumin/Globulin Ratio 0.9 L (1-3) TSH 2.43 (0.34-5.60) mcIU/mL Urine Color Urine Appearance Urine pH (5-9) Ur Specific [place] (1.010-1.030) Urine Protein (Negative) Urine Ketones (Negative) Urine Blood (Negative) Urine Nitrate (Negative) Urine Bilirubin (Negative) Urine Urobilinogen (Negative) Ur Leukocyte Esterase (Negative) Urine WBC (Auto) (Absent) Urine RBC (Auto) (Absent) Ur Squamous Epith Cells (Absent) Urine Bacteria (Absent) Urine Glucose (Negative) 10/17/17 10/17/17 Range/Units 17:36 18:55 WBC (3.5-10.8) 10^3/ul RBC (4.0-5.4) 10^6/ul Hgb (14.0-18.0) g/dl Hct (42-52) % MCV (80-94) fL MCH (27-31) pg MCHC (31-36) g/dl RDW (10.5-15) % Plt Count (150-450) 10^3/ul MPV (7.4-10.4) um3 Neut % (Auto) (38-83) % Lymph % (Auto) (25-47) % [place] % (Auto) (1-9) % Eos % (Auto) (0-6) % Baso % (Auto) (0-2) % Absolute Neuts (auto) (1.5-7.7) 10^3/ul Absolute Lymphs (auto) (1.0-4.8) 10^3/ul Absolute Monos (auto) (0-0.8) 10^3/ul Absolute Eos (auto) (0-0.6) 10^3/ul Absolute Basos (auto) (0-0.2) 10^3/ul Absolute Nucleated RBC 10^3/ul Neutrophils % (38-83) % Lymphocytes % (25-47) % Reactive Lymphs % (0-6) % Monocytes % (0-13) % Nucleated RBC % Normal RBC Morphology (Normal) INR (Anticoag Therapy) (0.77-1.02) Sodium (133-145) mmol/L Potassium (3.5-5.0) mmol/L Chloride (101-111) mmol/L Carbon Dioxide (22-32) mmol/L Anion Gap (2-11) mmol/L BUN (6-24) mg/dL Creatinine (0.67-1.17) mg/dL Est GFR ( Amer) (>60) Est GFR (Non-Af Amer) (>60) BUN/Creatinine Ratio (8-20) Glucose (70-100) mg/dL Lactic Acid 1.9 (0.5-2.0) mmol/L Calcium (8.6-10.3) mg/dL Magnesium (1.9-2.7) mg/dL Total Bilirubin (0.2-1.0) mg/dL AST (13-39) U/L ALT (7-52) U/L Alkaline Phosphatase (34-104) U/L Troponin I (<0.04) ng/mL C-Reactive Protein (< 5.00) mg/L Total Protein (6.4-8.9) g/dL Albumin (3.2-5.2) g/dL Globulin (2-4) g/dL Albumin/Globulin Ratio (1-3) TSH (0.34-5.60) mcIU/mL Urine Color Jessica Urine Appearance Cloudy Urine pH 5.0 (5-9) Ur Specific [place] 1.021 (1.010-1.030) Urine Protein 1+(30 mg/dl) H (Negative) Urine Ketones Negative (Negative) Urine Blood Negative (Negative) Urine Nitrate Negative (Negative) Urine Bilirubin Negative (Negative) Urine Urobilinogen Positive H (Negative) Ur Leukocyte Esterase Negative (Negative) Urine WBC (Auto) Trace(0-5/hpf) (Absent) Urine RBC (Auto) Trace(0-2/hpf) (Absent) Ur Squamous Epith Cells Present H (Absent) Urine Bacteria Absent (Absent) Urine Glucose Negative (Negative) Microbiology and Other Data: Microbiology 10/18/17 02:52 Stool Gross Appearance - Final Stool C. difficile DNA Amplification - Final 027 Presumptive NEGATIVE Toxigenic C.diff NEGATIVE Diagnostic Imaging: Patient Name: DEBRA KAUR Medical Record#: [id number] Ordering Physician: Torin Barboza MD Acct.#: [id number] : 1940 Age: 77 Sex: M Location: EMERGENCY DEPARTMENT Exam Date: 10/17/171858 ADM Status: REG ER Order Information: MRI BRAIN W/O Accession Number: [id number] CPT: 90486 INDICATION: Weakness. COMPARISON: Comparison is made with a prior CT of the brain from October 17, 2017. TECHNIQUE: Sagittal T1, axial T1, T2, susceptibility, FLAIR and diffusion weighted images were obtained. FINDINGS: The ventricles, cisterns and sulci are prominent consistent with diffuse atrophy. There are focal areas of increased signal intensity on T2-weighted images present in the subcortical and periventricular white matter most consistent with moderate chronic small vessel ischemic changes. There is a small area of restricted diffusion measuring 6 mm in size in the posterior right parietal lobe suggestive of a small area of ischemia or a very small infarct. No other areas of restricted diffusion are noted. There is no evidence for hemorrhage. The visualized portion of the paranasal sinuses appear clear. There is a small effusion within the right mastoid air cells. IMPRESSION: 1. THERE IS A SMALL 6 MM FOCUS OF RESTRICTED DIFFUSION IN THE POSTERIOR RIGHT PARIETAL LOBE SUGGESTIVE OF A SMALL AREA OF ISCHEMIA OR INFARCT. 2. ATROPHY AND FINDINGS CONSISTENT WITH MODERATE CHRONIC SMALL VESSEL ISCHEMIC CHANGES. <Electronically signed by Ruben Murray MD in OV> 10/17/171949 Dictated By: Ruben Murray MD Dictated Date/Time: 10/17/171949 Transcribed Date/Time: 10/17/171930 Copy to: CC:Trevon Nieves MD; Torin Barboza MD Imaging - [facility] Imaging - [facility] Imaging - [facility] [address] [place] [address] ph ([phone]) ph ([phone]) ph ([phone]) 1 of 1 Assess/Plan/Problems-Billing Mr Kaur is a 77 yo M who has a h/o afib, type II DM and HTN who presented to the ER with c/o unsteady gait and decreased energy and weakness, found to have small parietal CVA, and fever/malaise which is likely viral in nature. - Patient Problems (1) CVA (cerebral vascular accident) Code(s): I63.9 - CEREBRAL INFARCTION, UNSPECIFIED SNOMED Code(s): 573648717 Comment: - Neurology consult appreciated - Lipid panel today, optimize LDL<70 - US carotids and cardiac ECHO (2) Atrial fibrillation with RVR Code(s): I48.91 - UNSPECIFIED ATRIAL FIBRILLATION SNOMED Code(s): 212671245134581 Comment: - Rate controlled on cardizem cd180 daily - Continue eliquis for now (3) Fever Code(s): R50.9 - FEVER, UNSPECIFIED SNOMED Code(s): 827332164 Comment: - Influenza negative - Small right basilar infiltrate on CXR? - Likely Viral etiology/bronchitis - Will continue levaquin daily for now - trend WBCs and temps - Stools negative (4) HTN (hypertension) Code(s): I10 - ESSENTIAL (PRIMARY) HYPERTENSION SNOMED Code(s): 53710667 Comment: - Continue cardizem - hold lisinopril, follow renal fx (5) Type II diabetes mellitus Comment: - Monitor BG AC and HS with insulin SS Status and Disposition: Continue inpatient for close monitoring.
--- NOTE | 2017-10-19 18:44 | RAD ---
INDICATION: Cerebrovascular accident. COMPARISON: Comparison is made with a prior study from September 12, 2006. TECHNIQUE: Multiple grayscale, color and Doppler tracings of the common, internal and external carotid and vertebral arteries were obtained. Stenosis estimations reflect velocity criteria that it been correlated to angiographic stenosis calculations based on the distal internal carotid diameter. The exam is limited due to the patient's body habitus. RIGHT CAROTID: There is no plaque within the right carotid artery. The peak systolic velocity in the proximal right internal carotid artery is 62 cm/s and the maximum end-diastolic velocity is 10 cm/s. The peak systolic velocity in the distal right common carotid artery is 99 cm/s and the maximum end-diastolic velocity is 17 cm/s. The internal to common carotid artery ratio is 0.6. This would be consistent with a closed to a 0% stenosis. LEFT CAROTID: There is no plaque within the left carotid artery. The peak systolic velocity in the proximal left internal carotid artery is 53 cm/s and the maximum end-diastolic velocity is 17 cm/s. The peak systolic velocity in the distal left common carotid artery is 83 cm/s and the maximum end-diastolic velocity is 16 cm/s. The internal to common carotid artery ratio is 0.6. This would be consistent with a close to a 0% stenosis. VERTEBRALS: There is antegrade flow in both vertebral arteries. IMPRESSION: LIMITED STUDY, NO EVIDENCE FOR CAROTID STENOSIS. CPT II Codes: 3100F
[2017-10-19] MEDS: NS 0.9% 1000 ML* 1,000 ML IV SCH (22:47)
--- NOTE | 2017-10-19 23:23 | CONS ---
CONSULTATION REPORT: DATE OF CONSULT: 10/19/17 PATIENT OF: Dr. Nieves. HISTORY: This 77-year-old man I am asked to consult on because of recent stroke as well as fatigue and weakness. He has had about a 2 to 3-week history of decreasing energy with decreasing sleep at night, he wakes up early and is not rested. He has also had some bloating with this. On admission, he had some fever, but he had no fever prior to this. He has had no focal numbness or weakness. He has had some balance problems that has been slowly getting worse. Over many months, he has not fallen, and he has had more than 20-year history of diabetes PAST MEDICAL HISTORY: He has a history of type 2 diabetes, hypertension, atrial fibrillation, cataract surgery, corneal implant, left eye blindness. He has had bladder stones removed. He has hyperlipidemia. MEDICATIONS: On admission include: 1. Tricor 145 mg daily. 2. Metformin 500 mg twice daily. 3. Eliquis 5 mg twice daily. 4. Diltiazem ER 180 mg daily. 5. Lisinopril 10 mg daily. 6. Glimepiride 4 mg daily. ALLERGIES: He has no known drug allergies. FAMILY HISTORY: His mother and son with multiple sclerosis. His father has history of depression and committed suicide. SOCIAL HISTORY: He does not smoke, he drinks alcohol rarely. He has no substance abuse. 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 REVIEW OF SYSTEMS: Includes fatigue. No new visual symptoms. Abdominal bloating, daytime sleepiness. PHYSICAL EXAM: Temperature 98.7, pulse 88, respirations 20, blood pressure 107/ 67. He is alert and oriented with normal speech and comprehension. He could answer sophisticated questions such as not only did he know he was in the hospital, but he knew he was on the 4th floor. Cranial nerves II through XII are intact other than his decreased vision in his left eye. He had no visual field cut or neglect. Motor exam revealed normal tone and strength. He had no significant pronator drift. He has slightly wide-based stance. He had reflexes one and equal, toes are downgoing. Sensation is intact to light touch. He had no diminishment to double simultaneous stimulation. Chest: Clear. Cardiovascular: Regular rate and rhythm. Abdomen: Soft. He was somewhat obese. DIAGNOSTIC STUDIES/LAB DATA: I reviewed his MRI scan, which showed prominent white matter disease. A small acute or subacute infarct in his right parietal area. There was also some mild atrophy. I reviewed the films both with the Hospitalist, but also with the son. Labs include white count of 7.3, hematocrit 38, platelets of 231. INR 1.49. Normal BMP other than creatinine of 1.29. C-reactive protein was 88, had been 98 on admission and normal liver function test. TSH 2.43. Hemoglobin A1c was 7.1. Lyme titers and influenza A and B were negative. IMPRESSION: I discussed that his symptoms of general fatigue, global feeling of lack of energy were not related to his right parietal stroke. I think most likely that this is asymptomatic and most likely secondary to his small vessel ischemic disease noted. Also it is possible, I discussed with the son and the Hospitalist that some of the white matter plaque could be due to asymptomatic multiple sclerosis, but this would be impossible to prove one way or the other and most likely this is but seen on MRI screen is most likely due to chronic ischemic disease. I have recommended this to the Hospitalist an LDL to see if his medical treatment needs to be changed at all in this regard. He also should get a carotid Doppler and then if there is any abnormality then we may get CTA or MRA but his creatinine runs on the high side and so I would do noninterventional study first. He has had a recent echo in the past 10 days, which perhaps did not show plaque. Hospitalist will track this down and I defer to the Hospitalist's final decision as towhether to switch the Eliquis to some other anticoagulation. I think that the stroke appearance may be in keeping with the small vessel disease and not be cardioembolic but it is impossible to say for sure. Also, I am recommending that he get sleep apnea testing if he has sleep apnea, it may be exacerbating his cardiovascular risk factors. I will also be glad to see him in the office, I could evaluate his balance further at that time as well. We could conceivably get nerve conduction studies. Thank you for sharing his case. [id number]/[facility] #: [id number] NIR
--- NOTE | 2017-10-19 23:50 | PN ---
Progress Note - Progress Note Date of Service: 10/19/17 Note: Cross cover note: SpO2 decreased to 88% improved to 92% on 2L O2 Normal saline running at 100cc/hr stopped.
[2017-10-20] MEDS: Levofloxacin 750 MG IVPREMIX(* 750 MG/150 ML BAG IVPB SCH (07:05)
[2017-10-20] MEDS: CMCS:Fenofibrate(NF) 145 MG TAB PO SCH (09:19)
[2017-10-20] MEDS: Diltiazem CD CAP* 180 MG PO SCH (09:19)
[2017-10-20] MEDS: Apixaban* 5 MG TAB PO SCH (09:19)
[2017-10-20] MEDS: Insulin LISPRO* 1 UNITS UNIT SUBCUT SCH ×2 (09:20→12:39)
[2017-10-20] MEDS: Acetaminophen TAB* 325 MG PO PRN (09:20)
[2017-10-20 11:41] VITALS: BP 111/70
--- NOTE | 2017-10-21 02:28 | DS ---
AMENDED REPORT NOW INCLUDES COSIGNER DESIGNATION - ESIGNED BEFORE ADJUSTMENTS CC: CC: Dr. Trevon Nieves * DISCHARGE SUMMARY: DATE OF ADMISSION: 10/17/17 DATE OF DISCHARGE: 10/20/17 PRIMARY CARE PROVIDER: Dr. Trevon Nieves. ATTENDING PHYSICIAN DURING HOSPITALIZATION: Dr. Clarke Nicholson * (DICTATED BY BOUBACAR CONN, ROVERTO) CONSULTANTS INVOLVED IN THIS PATIENT'S CARE: Neurology, Dr. Trevon House. HOSPITAL COURSE: This is a very pleasant 77-year-old male patient who was admitted on 10/17/17 with complaint of some unsteady gait and lethargy. The patient was brought in by his family, primarily his and his children. They stated that for approximately 2 weeks prior to him presenting in the emergency department, they noticed a gradual decline in his energy and difficulty sleeping, supervisor winter waking and some new behaviors that did not seem right to him. He was also having some bowel issues and then had some fevers at home, diarrhea, constipation, overall gait changes and just not feeling like himself. When he came into the ER, his flu swab was negative, but he still had some fevers happening and CAT scan and MRI of his brain revealed a small CVA. The patient was admitted and seen by Neurology, Dr. Trevon House. Of important note, the patient does have history of aflutter and atrial fibrillation and is on Eliquis, so he was being anticoagulated. Records of his prior echocardiogram and bubble tests were obtained to see if he had any clots in the atria of the heart that would be the source of his stroke. These were obtained from about 10 days prior that were done as outpatient. They were both negative for any clots in the heart. Lipids also showed as well as an ultrasound of the carotids that they were negative for any carotid stenosis and lipid profile showed that his numbers were in good range, so the etiology of the stroke is unclear. He persisted with his viral illness. He was seen by Infectious Disease as well. He was placed on Levaquin to cover him for what seemed to be a small right lower lobe infiltration; however, we were not impressed enough to call this a pneumonia; however, with his fever spiking at over 102, we still covered him for pneumonia with Levaquin, but it was more likely that this was viral in nature and just happened to correlate with the symptom that the patient had a stroke. He was medically stabilized and cleared for discharge, cleared by Neurology on 10/20/17. On the day of discharge, the patient had no acute complaints. Denied any fever, fatigue, or chills. No chest pain. No shortness of breath. No nausea. No vomiting. No diarrhea. No fevers or chills. Last T-max was under 100, so he has been essentially afebrile for 24 hours. PHYSICAL EXAMINATION: The patient is awake and alert, no acute distress. Vital signs today were temperature 98.0, pulse 96, respiratory rate 18, oxygen saturation 94% on room air, and blood pressure 111/70. LABORATORY DATA: Laboratories done on 10/19, WBCs 7.3, RBCs 4.47, hemoglobin 13 , hematocrit 38, INR 1.49, and glucose fluctuating anywhere from 138 to 203. Triglycerides 205, cholesterol 75, LDL 25, HDL 8.7. MEDICATIONS AT THE TIME OF DISCHARGE: Include: 1. Tylenol 650 mg q.8 hours as needed for fever. 2. Eliquis 5 mg one tablet 2 times daily. 3. Diltiazem 180 mg one time daily. 4. Fenofibrate 145 mg one tablet daily. 5. Levaquin 500 mg one tablet daily for 3 days. REFERRALS AND FOLLOWUPS: The patient was instructed to follow up with his primary care provider, Dr. Trevon Nieves. Appointment was made for him on October 25. The patient was also instructed to follow up with [facility] for outpatient physical therapy. The patient declined to have physical therapy in home and was referred for outpatient PT for gait training and strength training. The patient was also instructed and this was also communicated to his primary care provider's office that the patient should have an outpatient sleep study as it was felt and this was discussed with Neurology as well that perhaps the patient has an underlying sleep apnea disorder, which may have also contributed to his current condition with the CVA. Again, the patient was discharged in stable condition under the care of his family. All questions were answered. The patient verbalized his understanding of his followups and his medications at the time of discharge as did his family. His is his [id number]. Sons and daughters were also present at the time of discharge and plan of care was agreed upon the patient was discharged in their care. BOUBACAR CONN, GRADER PATROL [id number]/[facility] #: [id number] [facility] HOSPITALChinyere
--- NOTE | 2017-10-21 04:14 | PN ---
NEUROLOGICAL FOLLOWUP NOTE: DATE OF VISIT: 10/20/17 HISTORY: Mr. Kaur feels like he is much stronger and less fatigued today than he did previously and he is pleased with how he feels. His whole family is happy as well. His medications remained unchanged including TriCor, metformin, Eliquis, diltiazem, lisinopril, and glimepiride. He has no known drug allergies. There is no change in family, social history, and rest of review of systems. On exam, temperature 98, pulse 110, respirations 18, blood pressure 111/70. He is alert and oriented with normal speech and comprehension. Cranial nerves II through XII are intact. Fundi showed sharp discs. Motor exam revealed normal tone and strength. Chest clear. Cardiovascular, regular rate and rhythm. Abdomen, soft with positive bowel sounds. His carotid ultrasound showed no significant stenosis; I discussed this with him and his family. I reiterated that his small stroke is unlikely to have anything to do with his generalized symptoms. He is going to continue with his anticoagulation and does not need any modification to treating his cholesterol, his LDL was only 25. I reemphasized that he should have a sleep study as outpatient and make sure he does not have sleep apnea and that I would see him back in followup including for his balance issues. He is going to be hooked up with physical therapy as an outpatient as well. I have discussed this case with his hospitalist. Thank you for sharing his care. [id number]/[facility] [place]: [id number] NIR
== END 2017-10-20 15:37 | disposition home or self-care (01) | DRG 65 ==
LOC: ED 12:43 → MEDTELE 22:01
PROVIDERS: ADMIT Internal Medicine; ATTEND Internal Medicine
DX: I63.9 Cerebral infarction, unspecified (principal); J98.11 Atelectasis; E11.22 Type 2 diabetes mellitus with diabetic chronic kidney disease; E11.649 Type 2 diabetes mellitus with hypoglycemia without coma; I48.91 Unspecified atrial fibrillation; R13.10 Dysphagia, unspecified; D72.820 Lymphocytosis (symptomatic); B97.89 Other viral agents as the cause of diseases classified elsewhere; Z94.7 Corneal transplant status; I45.10 Unspecified right bundle-branch block; R40.2412 Glasgow coma scale score 13-15, at arrival to emergency department; E78.00 Pure hypercholesterolemia, unspecified; I12.9 Hypertensive chronic kidney disease with stage 1 through stage 4 chronic kidney disease, or unspecified chronic kidney disease; R53.83 Other fatigue; R26.81 Unsteadiness on feet; R19.7 Diarrhea, unspecified; K59.00 Constipation, unspecified; N18.9 Chronic kidney disease, unspecified; R09.82 Postnasal drip; E66.9 Obesity, unspecified; R53.1 Weakness; R50.9 Fever, unspecified; E78.5 Hyperlipidemia, unspecified; Z98.42 Cataract extraction status, left eye; Z98.41 Cataract extraction status, right eye; Z87.442 Personal history of urinary calculi; Z81.8 Family history of other mental and behavioral disorders; Z68.36 Body mass index [BMI] 36.0-36.9, adult; Z79.01 Long term (current) use of anticoagulants; H54.61 Unqualified visual loss, right eye, normal vision left eye
CPT/HCPCS: 36415; 70450; 70551; 71010; 71020; 80048; 80053; 80061; 81003; 81015; 83036; 83605; 83735; 84145; 84443; 84484; 85025; 85027; 85610; 86038; 86140; 86618; 87040; 87493; 87502; 93005; 93880; A9270-GY

== ENCOUNTER 2017-10-25 16:45 | Emergency (ER) | payer MEDICARE, OTHER ==
--- NOTE | 2017-10-25 16:52 | CONSULT ---
Consult Consult: Pt as seen for CAT call. Pt was noted to have AMS after CT abd with IV contrast. His neuro status showed a specific way of speaking as if pt were intoxicated, he was oriented x 2, Slow to respond, diaphoretic. Motor 5/5 b/l no problems following commands. BG was 44. Pt ate and was treated with 1/2 amp of D50, within minutes his speech was back to normal. AAOx3 Pt was brought to the ED and signed off to . Family aware
[2017-10-25 17:29] LABS: ABS Basophils 0.1 10^3/ul (0-0.2); ABS Eosinophils 0 10^3/ul (0-0.6); ABS Lymphocytes 2.1 10^3/ul (1.0-4.8); ABS Monocytes 0.7 10^3/ul (0-0.8); ABS Nucleated RBC 0.03 10^3/ul; Eosinophil % 0.1 % (0-6); Hematocrit 43 % (42-52); Hemoglobin 14.1 g/dl (14.0-18.0); Lymphocyte % 31.1 % (25-47); Mean Corpuscular HGB Conc 33 g/dl (31-36); Mean Corpuscular Hemoglobin 28 pg (27-31); Mean Corpuscular Volume 85 fL (80-94); Mean Platelet Volume 7 um3 (7.4-10.4); Nucleated Red Blood Cells % 0.4; Platelet Count 334 10^3/ul (150-450); Red Cell Distribution Width 15 % (10.5-15); White Blood Count 6.8 10^3/ul (3.5-10.8)
[2017-10-25 17:31] LABS: INR 1.22 (0.77-1.02)
[2017-10-25 17:40] LABS: EGFR Non-African American 52.9 (>60)
[2017-10-25 18:24] VITALS: BP 100/55
--- NOTE | 2017-10-26 11:34 | ED ---
Ricki Turner Angela, scribed for Torin Barboza MD on 10/25/17 at 1725 . Altered Mental Status - HPI Summary HPI Summary: This pt is a 77 y/o male presenting to [facility] for sudden AMS during CT abdomen/ pelvis with IV contrast today. Pt had a different way of speaking, was slow to respond, and diaphoretic, per Dr. Arias. Fingerstick blood glucose was 44. Pt was given 2 cans of juice and 1/2 amp D50 and is now asymptomatic. Pt was getting a CT scan to rule out GI bleed due to pt's symptoms of intermittent bloody stools for several months. PMHx includes diabetes. - History Of Current Complaint Chief Complaint: EDDiabeticProb Stated Complaint: GI ISSUE Time Seen by Provider: 10/25/17 16:52 Onset/Duration: Resolved Timing: Lasting Minutes Severity Currently: None Character: Confusion Aggravating Factor(s): Unknown Alleviating Factor(s): Other - 1/2 amp D50 and can of juice Associated Signs And Symptoms: Positive: Negative - Allergies/Home Medications Allergies/Adverse Reactions: Allergies Allergy/AdvReac Type Severity Reaction Status Date / Time No Known Allergies Allergy Verified 10/17/17 14:46 Home Medications: Home Medications metFORMIN* [Glucophage 500 MG TAB *] 500 mg PO BID 10/25/17 [History Confirmed 10/25/17] PMH/Surg Hx/FS Hx/Imm Hx Endocrine/Hematology History: Reports: Hx Diabetes Denies: Hx Thyroid Disease Cardiovascular History: Reports: Hx Hypercholesterolemia, Hx Hypertension, Hx Valvular Heart Disease Denies: Hx Angina, Hx Coronary Artery Disease, Hx Myocardial Infarction, Hx Pacemaker/ICD Respiratory History: Denies: Hx Asthma, Hx Chronic Obstructive Pulmonary Disease (COPD) GI History: Denies: Hx Ulcer History: Reports: Hx Kidney Stones Sensory History: Reports: Hx Cataracts, Hx Contacts or Glasses Denies: Hx Hearing Aid Opthamlomology History: Reports: Hx Cataracts, Hx Contacts or Glasses Psychiatric History: Denies: Hx Panic Disorder - Surgical History Surgery Procedure, Year, and Place: Bladder stones. PILONIDAL CYST REMOVED Infectious Disease History: No Infectious Disease History: Denies: Hx Hepatitis, Hx Human Immunodeficiency Virus (HIV), History Other Infectious Disease, Traveled Outside the [place] in Last 30 Days - Family History Known Family History: Negative: Hypertension - Social History Alcohol Use: None Substance Use Type: Reports: None Smoking Status (MU): Never Smoked Tobacco Review of Systems Negative: Fever, Chills Cardiovascular: Negative Respiratory: Negative Gastrointestinal: Negative Genitourinary: Negative Musculoskeletal: Negative Skin: Negative Neurological: Other - NEG: AMS All Other Systems Reviewed And Are Negative: Yes Physical Exam - Summary Physical Exam Summary: Appearance: The patient is well-nourished in no acute distress and in no acute pain. Skin: The skin is warm and dry and skin color reflects adequate perfusion. HEENT: The head is normocephalic and atraumatic. The pupils are equal and reactive. The conjunctivae are clear and without drainage. Nares are patent and without drainage. Mouth reveals moist mucous membranes and the throat is without erythema and exudate. The external ears are intact. The ear canals are patent and without drainage. The tympanic membranes are intact. Neck: the neck is supple with full range of motion and non-tender. There are no carotid bruits. There is no neck vein distension. Respiratory: Chest is non-tender. Lungs are clear to auscultation and breath sounds are symmetrical and equal. Cardiovascular: Heart is regular rate and rhythm. There is no murmur or rub auscultated. There is no peripheral edema and pulses are symmetrical and equal. Abdomen: The abdomen is soft and non-tender. There are normal bowel sounds heard in all four quadrants and there is no organomegaly palpated. Musculoskeletal: There is no back tenderness noted. Extremities are non-tender with full range of motion. There is good capillary refill. There is no peripheral edema or calf tenderness elicited. Neurological: Patient is alert and oriented to person, place and time. The patient has symmetrical motor strength in all four extremities. Cranial nerves are grossly intact. Deep tendon reflexes are symmetrical and equal in all four extremities. Psychiatric: The patient has an appropriate affect and does not exhibit any anxiety or depression. Triage Information Reviewed: Yes Vital Signs On Initial Exam: Initial Vitals Temp Pulse Resp BP Pulse Ox 98.5 F 95 18 109/70 95 10/25/17 16:50 10/25/17 16:50 10/25/17 16:50 10/25/17 16:50 10/25/17 16:50 Vital Signs Reviewed: Yes - [place] Coma Scale Coma Scale Total: 15 Diagnostics - Vital Signs Vital Signs Temp Pulse Resp BP Pulse Ox 01/03/18 16:50 98.5 F 95 18 109/70 95 - Laboratory Lab Results: Lab Results 10/25/17 10/25/17 10/25/17 Range/Units 17:05 17:05 17:05 WBC 6.8 (3.5-10.8) 10^3/ul RBC 5.00 (4.0-5.4) 10^6/ul Hgb 14.1 (14.0-18.0) g/dl Hct 43 (42-52) % MCV 85 (80-94) fL MCH 28 (27-31) pg MCHC 33 (31-36) g/dl RDW 15 (10.5-15) % Plt Count 334 (150-450) 10^3/ul MPV 7 L (7.4-10.4) um3 Neut % (Auto) 58.4 (38-83) % Lymph % (Auto) 31.1 (25-47) % Glenn % (Auto) 9.7 H (1-9) % Eos % (Auto) 0.1 (0-6) % Baso % (Auto) 0.7 (0-2) % Absolute Neuts (auto) 4.0 (1.5-7.7) 10^3/ul Absolute Lymphs (auto) 2.1 (1.0-4.8) 10^3/ul Absolute Monos (auto) 0.7 (0-0.8) 10^3/ul Absolute Eos (auto) 0 (0-0.6) 10^3/ul Absolute Basos (auto) 0.1 (0-0.2) 10^3/ul Absolute Nucleated RBC 0.03 10^3/ul Nucleated RBC % 0.4 INR (Anticoag Therapy) 1.22 H (0.77-1.02) Sodium 131 L (133-145) mmol/L Potassium 4.7 (3.5-5.0) mmol/L Chloride 98 L (101-111) mmol/L Carbon Dioxide 28 (22-32) mmol/L Anion Gap 5 (2-11) mmol/L BUN 13 (6-24) mg/dL Creatinine 1.32 H (0.67-1.17) mg/dL Est GFR ( Amer) 68.0 (>60) Est GFR (Non-Af Amer) 52.9 (>60) BUN/Creatinine Ratio 9.8 (8-20) Glucose 105 H (70-100) mg/dL POC Glucose (mg/dL) (70-100) mg/dL Calcium 8.7 (8.6-10.3) mg/dL Total Bilirubin 0.60 (0.2-1.0) mg/dL AST 34 (13-39) U/L ALT 15 (7-52) U/L Alkaline Phosphatase 25 L (34-104) U/L C-Reactive Protein 13.81 H (< 5.00) mg/L Total Protein 6.9 (6.4-8.9) g/dL Albumin 2.8 L (3.2-5.2) g/dL Globulin 4.1 H (2-4) g/dL Albumin/Globulin Ratio 0.7 L (1-3) 10/25/17 Range/Units 17:28 WBC (3.5-10.8) 10^3/ul RBC (4.0-5.4) 10^6/ul Hgb (14.0-18.0) g/dl Hct (42-52) % MCV (80-94) fL MCH (27-31) pg MCHC (31-36) g/dl RDW (10.5-15) % Plt Count (150-450) 10^3/ul MPV (7.4-10.4) um3 Neut % (Auto) (38-83) % Lymph % (Auto) (25-47) % Glenn % (Auto) (1-9) % Eos % (Auto) (0-6) % Baso % (Auto) (0-2) % Absolute Neuts (auto) (1.5-7.7) 10^3/ul Absolute Lymphs (auto) (1.0-4.8) 10^3/ul Absolute Monos (auto) (0-0.8) 10^3/ul Absolute Eos (auto) (0-0.6) 10^3/ul Absolute Basos (auto) (0-0.2) 10^3/ul Absolute Nucleated RBC 10^3/ul Nucleated RBC % INR (Anticoag Therapy) (0.77-1.02) Sodium (133-145) mmol/L Potassium (3.5-5.0) mmol/L Chloride (101-111) mmol/L Carbon Dioxide (22-32) mmol/L Anion Gap (2-11) mmol/L BUN (6-24) mg/dL Creatinine (0.67-1.17) mg/dL Est GFR ( Amer) (>60) Est GFR (Non-Af Amer) (>60) BUN/Creatinine Ratio (8-20) Glucose (70-100) mg/dL POC Glucose (mg/dL) 101 H (70-100) mg/dL Calcium (8.6-10.3) mg/dL Total Bilirubin (0.2-1.0) mg/dL AST (13-39) U/L ALT (7-52) U/L Alkaline Phosphatase (34-104) U/L C-Reactive Protein (< 5.00) mg/L Total Protein (6.4-8.9) g/dL Albumin (3.2-5.2) g/dL Globulin (2-4) g/dL Albumin/Globulin Ratio (1-3) Result Diagrams: 10/25/17 17:05 10/25/17 17:05 Lab Statement: Any lab studies that have been ordered have been reviewed, and results considered in the medical decision making process. Altered Mental Statu Course/Dx - Course Course Of Treatment: Mr. Kaur had a hypoglycemic episode and was brought to the ED. He is completely improved on arrival. He has been feeling quite bad for weeks and has had bloody stools. He was just admitted for a CVA and is on eliquis. He was treated with levoquin during his recent hospitalization as it was felt that his general malaise was unlikely to be from the CVA. Labs were checked here and WNL; he hasn't lost a lot of blood. He takes his hypoglycemic in the evening and I asked him to hold it tonight and to call his PMD in the AM for further advice. - Diagnoses Discharge Diagnoses: Hypoglycemia Discharge - Discharge Plan Condition: Stable Disposition: HOME Patient Education Materials: Hypoglycemia in a Person with Diabetes (ED) Referrals: Trevon Nieves MD [Primary Care Provider] - As Soon As Possible Additional Instructions: Please follow up with Dr. Nieves. CALL HIS OFFICE TOMORROW TO SCHEDULE AN APPOINTMENT. RETURN TO THE ED FOR ANY WORSENING SYMPTOMS. The documentation as recorded by the Ricki casillas Angela accurately reflects the service I personally performed and the decisions made by me, Torin Barboza MD.
--- NOTE | 2017-10-26 12:39 | PN ---
Progress Note - Progress Note Date of Service: 10/26/17 Note: Patient occult blood was positive. patient was seen in ED for such and is being follow by primary for bloody stools so no further action is needed at this time.
== END 2017-10-25 18:22 | disposition home or self-care (01) ==
LOC: ED 16:45
DX: E11.649 Type 2 diabetes mellitus with hypoglycemia without coma (principal); Z86.79 Personal history of other diseases of the circulatory system; Z87.442 Personal history of urinary calculi
CPT/HCPCS: 36415; 80053; 82272; 85025; 85610; 86140; 99282

== ENCOUNTER 2017-12-14 07:57 | Day surgery (SDC) | payer MEDICARE, OTHER ==
[~2017-12-14 07:57] MED LIST: Buffered Lidocaine 0.9% SYRIN* 5 ML/SYR SYRINGE INTRADERM ONE
[2017-12-14] MEDS ORDERED: Buffered Lidocaine 0.9% SYRIN* 5 ML/SYR SYRINGE ONE (08:18)
[2017-12-14] MEDS ORDERED: ceFAZolin 2 GM in 100 MLS NS (*) BAG IVPB ONE (08:31)
[2017-12-14] MEDS ORDERED: Lidocaine 1% MPF wEPI 200,000* 30 ML SDV ONE (09:36)
[2017-12-14] MEDS ORDERED: Mineral Oil Sterile, TOPICAL* 25 ML BTL ONE (09:37)
[2017-12-14] MEDS ORDERED: fentaNYL* 50 MCG/ML 2 ML VIAL (100 MCG VIAL) ONE ×2 (09:43→10:37)
[2017-12-14] MEDS ORDERED: Midazolam* 1 MG/ML 2 ML VIAL (2 MG) ONE ×2 (09:43→10:35)
[2017-12-14] MEDS ORDERED: Naloxone* 0.4 MG/ML 1 ML VIAL IV PRN (10:09)
[2017-12-14 12:03] VITALS: BP 117/71
== END 2017-12-14 12:00 | disposition home or self-care (01) ==
LOC: OR 07:57
PROVIDERS: ATTEND Plastic Surgery
DX: C43.39 Malignant melanoma of other parts of face (principal); I48.92 Unspecified atrial flutter; Z79.01 Long term (current) use of anticoagulants; I71.9 Aortic aneurysm of unspecified site, without rupture; I45.10 Unspecified right bundle-branch block; Z87.891 Personal history of nicotine dependence; E11.9 Type 2 diabetes mellitus without complications; Z79.84 Long term (current) use of oral hypoglycemic drugs; I10 Essential (primary) hypertension; Z86.73 Personal history of transient ischemic attack (TIA), and cerebral infarction without residual deficits
CPT/HCPCS: 88305; A9270-GY; J2001; J2250; J3010

== ENCOUNTER 2018-01-23 05:58 | Inpatient (IN) | payer MEDICARE, OTHER ==
--- NOTE | 2018-01-18 21:14 | HP ---
CC: Dr. Gibbons; Dr. Trevon Nieves * PREOPERATIVE HISTORY AND PHYSICAL: DATE OF ADMISSION/SURGERY: 01/23/18 This patient is scheduled for AA admission by Dr. Hoang on 01/23/18. DATE OF PREOPERATIVE HISTORY AND PHYSICAL EXAMINATION: 01/17/18. ATTENDING SURGEON: Dr. Michoacano Hoang * (dictated by Isha Owusu NP) CHIEF COMPLAINT: Colon cancer. 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 He completed a colonoscopy with Dr. Shane with findings of a large sigmoid colon polyp, which was pedunculated. He had a second procedure for biopsy as he is maintained on anticoagulation. The site was tattooed; pathology reveals invasive adenocarcinoma. He completed CAT scan of the abdomen and pelvis with no evidence of lymphadenopathy. He is recommended to undergo laparoscopic sigmoid colectomy by Dr. Hoang. Dr. Hoang described the nature of the surgical procedure, the rationale for the procedure, the relevant risks and benefits, and today I reviewed the typical hospitalization and the postoperative care and recovery. The patient has had a chance to ask questions and stated that he understands the information and is satisfied with the answers given to his questions. He will sign surgical consent on the day of surgery. He will take a bowel cleansing prep consisting of clear liquids, Colyte laxative, neomycin, and metronidazole on the day before surgery and neomycin and metronidazole on the morning of surgery. He has been cleared by Dr. Gibbons from Cardiology to proceed with surgery and as recommended, his Eliquis will be held for 3 days preoperatively. 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 PAST SURGICAL HISTORY: Excision of pilonidal cyst, lithotripsy for ureteral calculi, excision of melanoma on his face, and right cataract extraction with implant. MEDICATIONS: 1. Diltiazem CD 180 mg 1 tablet p.o. daily. 2. Lisinopril 10 mg 1 tablet p.o. daily. 3. Eliquis 5 mg p.o. b.i.d. and he will take his last dose on 01/19/18. 4. Metformin 500 mg p.o. b.i.d. and he will hold that 1 day preoperatively while he is on the bowel cleansing prep. 5. Fenofibrate 145 mg p.o. daily. 6. Glimepiride 4 mg p.o. daily. 7. Omeprazole 20 mg p.o. daily. 8. Levofloxacin 500 mg p.o. daily. ALLERGIES: No known drug allergies. FAMILY HISTORY: Mother at age 65 with multiple sclerosis. Father with a history of depression and suicide. 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 He is currently a nonsmoker. He rarely consumes alcohol and denies the use of other substances. REVIEW OF SYSTEMS: Constitutional: Appetite has been fairly good; he deliberately lost 25 pounds since September 2017 to help control type 2 diabetes. He denies any excessive fatigue or fevers or chills. He was hospitalized at [facility] in September 2017 with balance issues and was in atrial fib, atrial flutter on admission. A brain MRI revealed a small 6- mm focus suggestive of area of ischemia or infarction and he was diagnosed with small CVA. He was also having difficulty swallowing at that time. All of those symptoms resolved and he currently denies any difficulty swallowing or gait difficulties. Endocrine: He is a type 2 diabetic. He does not currently check fingerstick blood sugars at home. He denies any thyroid disease. Hematologic: No easy bruising or bleeding while on the Eliquis; he has never received a blood transfusion. Respiratory: No dyspnea on exertion. No chronic cough. No history of pneumonia. Cardiovascular: He was cleared to proceed with surgery by Dr. Gibbons; he denies any chest pain or palpitations. He denies any dizziness or syncopal episodes. His echocardiogram in September 2017 revealed ejection fraction of 50% to 55%; he has chronic atrial fib, flutter with the well-controlled heart rate. He has well controlled hypertension; he has chronic right bundle branch block with EKG at Dr. Gibbons's office on 01/12/18, showing atrial flutter with heart rate of 77, nonspecific T changes. Nuclear stress test done in [address] Gibbons did not feel that he needed any further cardiac testing at the present time. Dr. Gibbons agreed with the plan to hold the Eliquis 2 to 3 days preoperatively and resume when it is safe to do so. Gastrointestinal: No nausea, vomiting, diarrhea. No GI bleeding. He does have occasional constipation and use of Senokot with good effect. Genitourinary: No dysuria. He does have a history of ureteral calculi and follows with Dr. Werner annually. Musculoskeletal: No complaints of back or joint pain. Neurologic: No deficits. No difficulty swallowing. No gait disturbances at this time. General: No history of deep vein thrombosis or pulmonary embolism. He reports that when he had spinal anesthesia, he experienced some difficulty breathing. PHYSICAL EXAMINATION GENERAL SURVEY: The patient is a 78-year-old male, overweight, well developed, in no acute distress. VITAL SIGNS: Height 67 inches, weight 213 pounds, body mass index 33.4. Blood pressure 112/68, pulse 66 and regular, respiratory rate 18, temperature 97.6 tympanic. HEENT: Benign. NECK: Supple. No JVD, no carotid bruits, no cervical lymphadenopathy. LUNGS: Breath sounds bilaterally clear and equal. HEART: Irregularly irregular, S1, S2. No murmurs or rubs. ABDOMEN: Active bowel sounds. Soft, nondistended, nontender throughout. No obvious masses, organomegaly, or evidence of ventral hernia. GENITALIA EXAM: Deferred. RECTAL EXAM: Deferred. EXTREMITIES: Full range of motion, 5/5 strength. No edema. No cyanosis. No skin ulcerations. NEUROLOGIC: No focal deficits. Steady gait. Alert and oriented x3. SKIN: Warm, dry, intact. IMPRESSION: Malignant neoplasm of sigmoid colon. PLAN: AA admission to Dr. Hoang' service on 01/23/18, for laparoscopic sigmoid colectomy. The patient will take a bowel cleansing prep on the day before surgery as described in history of present illness. He will hold Eliquis for 3 days preoperatively taking the last dose 01/19/18. TIME SPENT: [id number] history taking and coordination of care 60 minutes. RANDI OWUSU NP [id number]/[facility] #: [id number] NIR
[~2018-01-23 05:58] MED LIST changes: +ERTApenem 1 GM in 50 mL NS IVPB ONE
[2018-01-23] MEDS ORDERED: Scopolamine 1.5 mg* PATCH TRANSDERM ONE (06:00)
[2018-01-23] MEDS ORDERED: Famotidine IV* 10 MG/ML 2 ML (20 mg) IV ONE (06:00)
[2018-01-23] MEDS ORDERED: Famotidine IV* 10 MG/ML 2 ML (20 mg) ONE (06:05)
[2018-01-23] MEDS ORDERED: Scopolamine 1.5 mg* PATCH ONE (06:06)
[2018-01-23] MEDS ORDERED: Ertapenem* 1 GM in NS 0.9% 50 ML* 50 ML IVPB ONE (07:00)
[2018-01-23] MEDS ORDERED: Heparin VIAL(*) 5000 UNITS/ML VIAL (FIVE THOUSAND) ONE (07:01)
[2018-01-23] MEDS ORDERED: fentaNYL* 50 MCG/ML 2 ML VIAL (100 MCG VIAL) ONE ×7 (07:04→13:35)
[2018-01-23] MEDS ORDERED: Lidocaine 2% PF * 5 ML VIAL ONE (07:04)
[2018-01-23] MEDS ORDERED: Propofol* 10 MG/ML 20 ML BTL IV PUSH ONE (07:04)
[2018-01-23] MEDS ORDERED: Midazolam* 1 MG/ML 2 ML VIAL (2 MG) ONE (07:04)
[2018-01-23] MEDS ORDERED: Rocuronium* 10 MG/ML VIAL ONE ×2 (07:04→09:14)
[2018-01-23 07:14] LABS: INR 0.93 (0.77-1.02)
[2018-01-23] MEDS ORDERED: Bupivacaine 0.25% SDV* 30 ML ONE (07:16)
[2018-01-23] MEDS ORDERED: Ketorolac INJ* 30 MG/ML 1 ML VIAL ONE ×2 (08:32→14:01)
[2018-01-23] MEDS ORDERED: Acetaminophen IV 1GM/100ML * 1,000 MG/100 ML VIAL IVPB ONE (08:48)
[2018-01-23] MEDS ORDERED: Naloxone* 0.4 MG/ML 1 ML VIAL IV PRN (08:48)
[2018-01-23] MEDS ORDERED: PROCHLORPERAZINE INJ 5 MG/ML 2 ML VIAL IV PRN (08:48)
[2018-01-23] MEDS ORDERED: Phenylephrine INJ* 10 MG/ML 1 ML VIAL (10 MG) ONE (10:01)
[2018-01-23] MEDS ORDERED: Ondansetron INJ* 2 MG/ML VIAL ONE ×2 (12:14→14:04)
[2018-01-23] MEDS ORDERED: Neostigmine Methylsulfate* 1 MG/ML 10 ML VIAL (1 mg/ml) ONE (12:18)
[2018-01-23] MEDS ORDERED: Glycopyrrolate IV* 0.2 MG/ML 1 ML VIAL ONE (12:18)
--- NOTE | 2018-01-23 12:48 | OP ---
Operative Report - Blank - Operative Report Date of Operation: 01/23/18 Note: Pre-op Diagnosis: Sigmoid carcinoma Post-op Diagnosis:Sigmoid carcinoma Procedure: Laparoscopic assisted sigmoid colectomy Anesthesia: GET Surgeon: Dr. Hoang Assist: Dr. Gore; RACHEL Moyer; SAUD Shultz Fluids: 3200 cc LR EBL: 100 cc Specimen: Sigmoid colon Findings: dictated Drains: none
[2018-01-23] MEDS ORDERED: Metoprolol Tartrate IV* 1 MG/ML 5 ML VIAL ONE (12:51)
[2018-01-23] MEDS ORDERED: Morphine INJ* 10 MG/ML 1 ML CARPUJECT ONE (13:20)
[2018-01-23] MEDS ORDERED: Dextrose 50% Syringe 50 ML* 25 GM/50 ML SYRINGE IV PUSH PRN (13:20)
[2018-01-23] MEDS: fentaNYL* 50 MCG/ML 2 ML VIAL (100 MCG VIAL) IV PRN ×3 (13:23→13:38)
[2018-01-23] MEDS ORDERED: Morphine INJ* 4 MG/ML 1 ML SYRINGE (NEW SYRINGE VERSION) IV PRN (13:23)
[2018-01-23] MEDS ORDERED: Morphine INJ* 2 MG/ML 1 ML CARPUJECT IV PRN ×2 (13:23→14:01)
[2018-01-23] MEDS: Morphine INJ* 2 MG/ML 1 ML CARPUJECT IV PRN ×2 (13:25→13:31)
[2018-01-23] MEDS ORDERED: Ondansetron INJ* 2 MG/ML VIAL IV PRN (13:25)
[2018-01-23] MEDS ORDERED: Acetaminophen IV 1GM/100ML * 100 ML ONE (14:01)
[2018-01-23] MEDS ORDERED: PROCHLORPERAZINE INJ 5 MG/ML 2 ML VIAL ONE (14:04)
[2018-01-23] MEDS: Ketorolac INJ* 30 MG/ML 1 ML VIAL IV PRN (14:08)
[2018-01-23] MEDS: Heparin VIAL(*) 5000 UNITS/ML VIAL (FIVE THOUSAND) SUBCUT SCH ×2 (15:37→22:39)
[2018-01-23] MEDS ORDERED: Morphine VIAL* 4 MG/ML VIAL (1 ml vial) IV PRN (16:56)
[2018-01-23] MEDS: Insulin LISPRO* 1 UNITS UNIT SUBCUT SCH ×2 (18:27→23:57)
[2018-01-23] MEDS: Diltiazem CD CAP* 180 MG PO SCH (18:31)
[2018-01-24] MEDS: Insulin LISPRO* 1 UNITS UNIT SUBCUT SCH ×4 (05:33→17:45)
[2018-01-24] MEDS: Heparin VIAL(*) 5000 UNITS/ML VIAL (FIVE THOUSAND) SUBCUT SCH ×3 (05:37→22:46)
[2018-01-24 05:39] LABS: ABS Basophils 0 10^3/ul (0-0.2); ABS Eosinophils 0 10^3/ul (0-0.6); ABS Lymphocytes 2.1 10^3/ul (1.0-4.8); ABS Neutrophils 5.4 10^3/ul (1.5-7.7); ABS Nucleated RBC 0 10^3/ul; Eosinophil % 0.5 % (0-6); Hematocrit 37 % (42-52); Hemoglobin 12.7 g/dl (14.0-18.0); Lymphocyte % 24.5 % (25-47); Mean Corpuscular HGB Conc 35 g/dl (31-36); Mean Corpuscular Hemoglobin 30 pg (27-31); Mean Corpuscular Volume 87 fL (80-94); Mean Platelet Volume 7.5 um3 (7.4-10.4); Nucleated Red Blood Cells % 0.1; Platelet Count 236 10^3/ul (150-450); Red Blood Count 4.21 10^6/ul (4.0-5.4); Red Cell Distribution Width 15 % (10.5-15); White Blood Count 8.6 10^3/ul (3.5-10.8)
[2018-01-24 05:55] LABS: EGFR Non-African American 62.5 (>60)
[2018-01-24] MEDS: Ketorolac INJ* 30 MG/ML 1 ML VIAL IV PRN ×2 (08:04→14:00)
[2018-01-24] MEDS ORDERED: Pneumococcal *Vac Polyvalent 0.5 ML VIAL IM ONE (09:00)
--- NOTE | 2018-01-24 09:35 | PN ---
Progress Note - Progress Note Date of Service: 01/24/18 Note: Subjective: Mr. Kaur is S/P day 1 of a laparoscopic assisted sigmoid colectomy. He is doing well and rates his pain as a 0/10. He denies chest pain, palpitations, SOB , N/V, and abdominal pain. Current Medications Acetaminophen (Tylenol Tab*) 650 mg PO Q4H PRN PRN Reason: Pain Or Temperature >101 F Dextrose (D50w Syringe 50 Ml*) 12.5 gm IV PUSH .FOR FS < 60 - SS PRN PRN Reason: FS < 60 Diltiazem HCl (Cardizem Cd Cap*) 180 mg PO QPM [facility] Last Admin: 01/23/18 18:31 Dose: 180 mg Heparin Sodium (Porcine) (Heparin Vial(*)) 5,000 units SUBCUT Q8HR [facility] Last Admin: 01/24/18 05:37 Dose: 5,000 units Lactated Ringer's (Lactated Ringers 1000 Ml Bag*) 1,000 mls @ 175 mls/hr IV .per rate [facility] Last Admin: 01/24/18 05:37 Dose: 150 mls/hr Insulin Human Lispro (Humalog*) 0 units SUBCUT Q6HR [facility] PRN Reason: Protocol Last Admin: 01/24/18 05:33 Dose: Not Given Ketorolac Tromethamine (Toradol Inj*) 15 mg IV Q6H PRN PRN Reason: PAIN Stop: 01/25/18 13:15 Last Admin: 01/24/18 08:04 Dose: 15 mg Morphine Sulfate (Morphine Vial*) 4 mg IV Q2H PRN PRN Reason: moderate to severe pain Last Admin: 01/23/18 17:17 Dose: 4 mg Ondansetron HCl (Zofran Inj*) 4 mg IV Q6H PRN PRN Reason: NAUSEA Last Admin: 01/23/18 14:09 Dose: 4 mg Pharmacy Profile Note (Scopolamine Patch Remove*) 1 note PATCH OFF ONCE ONE Stop: 01/26/18 06:01 Objective: Vital Signs: Temp Pulse Resp BP Pulse Ox 98.4 F 73 20 101/54 94 01/24/18 04:00 01/24/18 04:00 01/24/18 07:19 01/24/18 04:00 01/24/18 07:19 Physical Exam: General: WDWN male in NAD. CV: RRR w/o MRG. GI: Abdomen is flat, non-distended, and non-tender to light palpation. Hypoactive BS. Dressings over the surgical site are dry, intact, and without drainage. Dressings were changed last evening 01/24. Assessment & Plan: Mr. Kaur is s/p day 1 of a laparoscopic assisted sigmoid colectomy. Patient is doing well without pain at this time. Continue pain management and dressing changes.
--- NOTE | 2018-01-24 14:49 | OP ---
CC: Greg Velazquez MD; Trevon Nieves MD * DATE OF SURGERY: 01/23/18 - ROOM #336 DATE OF : 44 SURGEON: Michoacano Hoang MD ASSISTANTS: 1. Lan Gore MD. 2. RACHEL Rocha ANESTHESIOLOGIST: Dr. Savage. ANESTHESIA: General endotracheal. PREOPERATIVE DIAGNOSIS: Sigmoid colon carcinoma. POSTOPERATIVE DIAGNOSIS: Sigmoid colon carcinoma. OPERATIVE PROCEDURE: Laparoscopic assisted sigmoid colectomy. ESTIMATED BLOOD LOSS: Less than 50 mL. IV FLUIDS: Crystalloids. SPECIMEN: Sigmoid colon. DRAINS: None. COMPLICATIONS: None. COUNTS: The instrument, needle, sponge counts were correct. DESCRIPTION OF PROCEDURE: The patient was brought to the operating room and placed on the table supine. Sequential compression devices were placed on both lower extremities. General anesthesia was administered. A [place] catheter was placed. He was positioned "split-leg" on the operating table. Rectal irrigation was performed with Betadine solution until clear. The patient was then prepped and draped in the usual sterile fashion. He received appropriate intravenous antibiotics. A time- out was performed. Local anesthetic was infiltrated in the skin and soft tissue prior to each incision. Entry to the abdomen was through a supraumbilical incision created vertically. After using the open technique to access the peritoneal cavity, a 12- mm trocar was placed and carbon dioxide was insufflated to a pressure of 15 mmHg. With a camera, a 5-mm 30-degree laparoscope was used. Under direct visualization, 5-mm trocars were placed in the right lower quadrant, left lower quadrant, and suprapubic midline. Eventually, the right lower quadrant was exchanged for 12-mm bladeless trocar in order to place staplers. Mobilization proceeded with identification of tattooing in the pelvis at the level of the distal sigmoid/upper rectum. The patient had some adhesions of epiploic appendages to the lateral side wall which were taken down with LigaSure. Mobilization proceeded along the white line of Toldt, medializing the sigmoid colon and descending colon up to and including the splenic flexure takedown. Dissection proceeded by identifying and preserving the left ureter and the dissection proceeded down into the pelvis, scoring the peritoneum along the left side of the rectum. The peritoneum was then scored on the right side and dissection proceeded in the plane to create a window between the bowel and the mesentery at the rectosigmoid junction and then the bowel was divided with the EndoGIA stapler with purple cartridge. The mesentery was then divided with a combination of LigaSure and staplers, progressing proximally. After adequately mobilizing the colon, an incision was created periumbilically and the specimen was exteriorized. The PRINCESS pedicle was identified and this was divided with a stapler through the incision after having placed an Matthieu retractor. Subsequently, the proximal margin of resection was identified within the area of the descending colon and the mesentery was divided incrementally to the site with a LigaSure. The bowel was then divided, and proximally the bowel was sized for a 31 mm EEA stapler. A 31 mm 4.5 stapler anvil was used and pursestring of 2-0 Prolene was used to secure this in the proximal bowel. The bowel and anvil were returned to the abdominal cavity. The midline wound was closed with interrupted #1 Vicryl suture and pneumoperitoneum was reestablished with a 5-mm trocar placed through the midline wound. Religion of the continuity of the bowel was performed using a double staple technique with EEA stapler and the anastomosis was then inspected using the bubble leak test and there was no leak identified. Hemostasis was assured and the ports were removed under direct visualization. Carbon dioxide was released. Skin incisions were closed with maryann and dressings applied. The patient tolerated the procedure well, was extubated uneventfully, and transferred to the recovery room in stable condition. [id number]/[facility] #: [id number] NIR
[2018-01-24] MEDS ORDERED: Scopolamine PATCH Remove* 1 NOTE MISC PATCH OFF ONE (16:00)
[2018-01-24] MEDS: Diltiazem CD CAP* 180 MG PO SCH (18:07)
[2018-01-24] MEDS: Acetaminophen TAB* 325 MG PO PRN (18:08)
--- NOTE | 2018-01-24 18:31 | PN ---
Progress Note - Progress Note Date of Service: 01/24/18 Note: Surgery Progress: S: POD #1. Patient seen this a.m. ~ 1000. Denies sig pain, though more discomfort at present after ambulation. No N/V. No BM or flatus. Would like Medellin removed if possible. O: Vital Signs - 8 hr 01/24/18 01/24/18 01/24/18 11:48 14:15 15:18 Temperature 99.0 F 99.0 F Pulse Rate 72 72 Respiratory 22 16 Rate Blood Pressure 108/61 109/59 (mmHg) O2 Sat by Pulse 94 95 95 Oximetry 01/24/18 16:00 Temperature Pulse Rate Respiratory Rate Blood Pressure (mmHg) O2 Sat by Pulse 95 Oximetry Intake and Output Last 24 Hours 01/22/18 01/23/18 01/24/18 01/25/18 06:59 06:59 06:59 06:59 Intake Total 5910 873 Output Total 845 600 Balance 5065 273 Weight 208 lb 12.8 oz Intake: IV Fluids 5270 518 LR 5220 518 NS 50ML, Ertopenin 1G 50 Oral 640 355 Output: Urine 150 [place] 845 450 Other: # Bowel Movements 0 Gen: NAD Heart: reg Lungs: clear Abd: Incisions ok; no sig drainage. BS+. Soft, min tenderness to palp. Extr: no edema; SCDs in place Labs: Laboratory Tests 01/24/18 01/24/18 01/24/18 05:14 05:27 12:01 WBC 8.6 Hgb 12.7 L POC Glucose (mg/dL) 95 125 H 01/24/18 17:44 WBC Hgb POC Glucose (mg/dL) 125 H A: s/p lap assisted sigmoid colectomy, doing well P: discussed w/ Dr. Hoang; d/c Medellin; heplock IV; clears ad romelia
[2018-01-25] MEDS: Insulin LISPRO* 1 UNITS UNIT SUBCUT SCH ×5 (00:05→23:57)
[2018-01-25] MEDS: Heparin VIAL(*) 5000 UNITS/ML VIAL (FIVE THOUSAND) SUBCUT SCH ×3 (06:13→23:58)
[2018-01-25] MEDS: Acetaminophen TAB* 325 MG PO PRN (06:17)
[2018-01-25] MEDS ORDERED: Omeprazole CAP* 20 MG PO PRN (09:00)
[2018-01-25] MEDS ORDERED: Ibuprofen TAB* 400 MG PO PRN (09:07)
--- NOTE | 2018-01-25 09:07 | PN ---
Progress Note - Progress Note Date of Service: 01/25/18 Note: Surgery Progress: S: POD #2. Pain controlled w/ Tylenol. Alesia clears; would like to try more. No N/ V. No flatus or BM yet. Ambulating well. O: Vital Signs - 8 hr 01/25/18 01/25/18 04:18 07:25 Temperature 98.7 F 98.6 F Pulse Rate 73 72 Respiratory 16 16 Rate Blood Pressure 142/63 118/67 (mmHg) O2 Sat by Pulse 96 94 Oximetry Intake and Output Last 24 Hours 01/23/18 01/24/18 01/25/18 01/26/18 06:59 06:59 06:59 06:59 Intake Total 5910 1353 Output Total 845 2925 Balance 5065 -1572 Weight 208 lb 12.8 oz Intake: IV Fluids 5270 518 LR 5220 518 NS 50ML, Ertopenin 1G 50 Oral 640 835 Output: Urine 2475 [place] 845 450 Other: # Bowel Movements 0 0 PE: NAD Heart: reg Lungs: clear; few bibasilar crackles? Abd: small amt serosang drainage on midline dsg. Nondistended. Soft; min tenderness to palp Extr: no edema fs gluc: Laboratory Tests 01/24/18 01/24/18 01/24/18 05:27 12:01 17:44 POC Glucose (mg/dL) 95 125 H 125 H 01/25/18 00:01 POC Glucose (mg/dL) 101 H A: s/p lap assisted sigmoid colectomy, doing well P: adv to full liq while awaiting further bowel fct; po meds; poss d/c home 01/26 ? Resume Eliquis (today vs 01/26?) Will d/w Dr. Hoang.
--- NOTE | 2018-01-25 09:30 | PN ---
Progress Note - Progress Note Date of Service: 01/25/18 Note: Subjective: Mr. Kaur is post-op day two of a laparoscopic sigmoid colectomy. He is doing quite well. He has been ambulating and urinating without any problems. He did express that early this morning he had some moderate abdominal pain, especially with movement. He took two tylenol tablets which alleviated the pain. He expressed an interest in advancing his diet to full liquids. Admits to eructation, denies having any flatus or BMs. Denies N/V or abdominal pain. Current Medications Acetaminophen (Tylenol Tab*) 650 mg PO Q4H PRN PRN Reason: Pain Or Temperature >101 F Last Admin: 01/25/18 06:17 Dose: 650 mg Dextrose (D50w Syringe 50 Ml*) 12.5 gm IV PUSH .FOR FS < 60 - SS PRN PRN Reason: FS < 60 Diltiazem HCl (Cardizem Cd Cap*) 180 mg PO QPM [facility] Last Admin: 01/24/18 18:07 Dose: 180 mg Heparin Sodium (Porcine) (Heparin Vial(*)) 5,000 units SUBCUT Q8HR [facility] Last Admin: 01/25/18 06:13 Dose: Not Given Ibuprofen (Motrin Tab*) 400 mg PO Q6H PRN PRN Reason: PAIN Insulin Human Lispro (Humalog*) 0 units SUBCUT Q6HR [facility] PRN Reason: Protocol Last Admin: 01/25/18 05:43 Dose: Not Given Morphine Sulfate (Morphine Vial*) 4 mg IV Q2H PRN PRN Reason: moderate to severe pain Last Admin: 01/23/18 17:17 Dose: 4 mg Omeprazole (Prilosec Cap*) 20 mg PO QAM PRN PRN Reason: INDIGESTION Ondansetron HCl (Zofran Inj*) 4 mg IV Q6H PRN PRN Reason: NAUSEA Last Admin: 01/23/18 14:09 Dose: 4 mg Objective: Vital Signs Temp Pulse Resp BP Pulse Ox 98.6 F 72 18 118/67 94 01/25/18 07:25 01/25/18 07:25 01/25/18 08:00 01/25/18 07:25 01/25/18 08:00 Physical exam: General: WDWN in NAD. CV: RRR w/o MRG Resp: CTAB w/o RRW. GI: Abdomen is soft, non-distended and non-tender upon light palpation. Assessment & Plan: Mr. Kaur is post-op day two of a sigmoid colectomy. Removed all dressings with the exception of the mid-abdominal dressing; there is still some discharge at that site and this was changed. Advance diet to full liquids. Will likely resume eliquis therapy tomorrow. Continue to encourage ambulation.
[2018-01-25] MEDS: Diltiazem CD CAP* 180 MG PO SCH (18:23)
[2018-01-26] MEDS: Acetaminophen TAB* 325 MG PO PRN
[2018-01-26] MEDS: Heparin VIAL(*) 5000 UNITS/ML VIAL (FIVE THOUSAND) SUBCUT SCH ×2 (05:29→13:31)
[2018-01-26] MEDS ORDERED: Scopolamine PATCH Remove* 1 NOTE MISC PATCH OFF ONE (06:00)
--- NOTE | 2018-01-26 10:37 | PN ---
Progress Note - Progress Note Date of Service: 01/26/18
--- NOTE | 2018-01-26 11:16 | PN ---
Progress Note - Progress Note Date of Service: 01/26/18 Note: Subjective: Mr. Kaur is post-op day three of a laparoscopic sigmoid colectomy. He is doing very well. He tolerated a low fiber diet for breakfast without any nausea or vomiting to follow. He continues to urinate without any problem and his pain is well controlled with tylenol. He reports that he is having flatus at this time, although has not had a BM. Continues to ambulate frequently. Denies fatigue, fevers, chills, chest pain, palpitations, SOB, significant abdominal pain, N/V. Current Medications Acetaminophen (Tylenol Tab*) 650 mg PO Q4H PRN PRN Reason: Pain Or Temperature >101 F Last Admin: 01/26/18 00:00 Dose: 650 mg Dextrose (D50w Syringe 50 Ml*) 12.5 gm IV PUSH .FOR FS < 60 - SS PRN PRN Reason: FS < 60 Diltiazem HCl (Cardizem Cd Cap*) 180 mg PO QPM [facility] Last Admin: 01/25/18 18:23 Dose: 180 mg Heparin Sodium (Porcine) (Heparin Vial(*)) 5,000 units SUBCUT Q8HR [facility] Last Admin: 01/26/18 05:29 Dose: Not Given Ibuprofen (Motrin Tab*) 400 mg PO Q6H PRN PRN Reason: PAIN Insulin Human Lispro (Humalog*) 0 units SUBCUT Q12H [facility] PRN Reason: Protocol Last Admin: 01/25/18 23:57 Dose: 3 units Morphine Sulfate (Morphine Vial*) 4 mg IV Q2H PRN PRN Reason: moderate to severe pain Last Admin: 01/23/18 17:17 Dose: 4 mg Omeprazole (Prilosec Cap*) 20 mg PO QAM PRN PRN Reason: INDIGESTION Ondansetron HCl (Zofran Inj*) 4 mg IV Q6H PRN PRN Reason: NAUSEA Last Admin: 01/23/18 14:09 Dose: 4 mg Objective: Vital Signs 01/25/18 01/25/18 01/25/18 11:48 15:18 16:00 Temperature 99.0 F 98.3 F Pulse Rate 76 73 Respiratory 16 18 Rate Blood Pressure 123/67 125/70 (mmHg) O2 Sat by Pulse 98 95 98 Oximetry 01/25/18 01/25/1801/25/18 19:55 22:05 23:28 Temperature 98.6 F 99.0 F Pulse Rate 75 74 Respiratory 20 16 16 Rate Blood Pressure 143/73 116/55 (mmHg) O2 Sat by Pulse 96 94 Oximetry 01/26/18 03:33 Temperature 98.2 F Pulse Rate 73 Respiratory 16 Rate Blood Pressure 135/73 (mmHg) O2 Sat by Pulse 97 Oximetry Physical Exam: General: WDWN in NAD. CV: RRR w/o MRG. Resp: CTAB w/o RRW. GI: Abdomen is flat, non-distended and non-tender to light palpation. Normal BS throughout. Extremities: No edema appreciated. Assessment and Plan: Mr. Kaur is post-op day three of a sigmoid colectomy and is doing very well. Tolerated a low-fiber diet for breakfast and is passing flatus. Will resume eliquis today and he will be d/c'd this afternoon with f/u in the office scheduled.
--- NOTE | 2018-01-26 12:39 | PN ---
Progress Note - Progress Note Date of Service: 01/26/18 SOAP: Subjective: Seen this AM. Passing flatus and good pain control from Tylenol. Has appetite and no N/V. Objective: Vital Signs Temp 98.2 F 01/26/18 03:33 Pulse 73 01/26/18 03:33 Resp 16 01/26/18 03:33 BP 135/73 01/26/18 03:33 Pulse Ox 97 01/26/18 03:33 Gen: NAD Abd: incisions c/d/i, no erythema; soft and nontender. Intake & Output 01/25/18 01/26/18 01/26/18 18:59 06:59 18:59 Intake Total 2390 1000 Output Total 850 1470 150 Balance 1540 -470 -150 Intake: Oral 2390 1000 Output: Urine 850 1470 150 Other: # Bowel Movements 0 Assessment: POD#3 s/p lap sigmoid colectomy. Doing well and ready for d/c home today. Plan: Adv diet. D/c home today. F/u pathology as outpt.
[2018-01-26] MEDS: Insulin LISPRO* 1 UNITS UNIT SUBCUT SCH (13:32)
[2018-01-26 14:56] VITALS: BP 136/80
--- NOTE | 2018-01-27 00:31 | DS ---
CC: Dr. Trevon Nieves * DISCHARGE SUMMARY: DATE OF ADMISSION: 01/23/18 DATE OF DISCHARGE: 01/26/18 ATTENDING PHYSICIAN: Michoacano Hoang MD * (DICTATED BY RACHEL ROBB) HOSPITAL COURSE: Please refer to admission history and physical for admission details. The patient was taken to the operating room on 01/23/18, at which time he underwent laparoscopic assisted sigmoid colectomy. See separate operative report. Surgery was otherwise uneventful. Pathology report is still pending. The patient has had an unremarkable postoperative recovery with little or no pain, controlled by Tylenol only. He has also been able to advance a diet and is passing flatus. He has tolerated soft low fiber diet as of the morning of discharge. Vital signs on the morning of discharge: Temperature 98.2, blood pressure 135/73, pulse 73, respirations 16, room air saturation 97%. He was seen this morning and examined by Dr. Hoang. Instructions were reviewed regarding diet, wound care and activity. He will resume all of his usual home medications including his usual Eliquis beginning this evening. He has a followup appointment with our office on 02/02/18 at 2: 45. RACHEL ROBB [id number]/[facility] #: [id number] NIR
== END 2018-01-26 15:55 | disposition home or self-care (01) | DRG 331 ==
LOC: OR 05:58 → SSU 15:19
PROVIDERS: ADMIT Surgery; ATTEND Surgery
PROC: 0DTN0ZZ Resection of Sigmoid Colon, Open Approach (ICD-10-PCS; principal; 2018-01-23 07:30)
DX: C18.7 Malignant neoplasm of sigmoid colon (principal); E11.9 Type 2 diabetes mellitus without complications; I48.91 Unspecified atrial fibrillation; I10 Essential (primary) hypertension; I48.2 Chronic atrial fibrillation; I45.10 Unspecified right bundle-branch block; E66.3 Overweight; Z68.32 Body mass index [BMI] 32.0-32.9, adult; Z86.73 Personal history of transient ischemic attack (TIA), and cerebral infarction without residual deficits; Z85.820 Personal history of malignant melanoma of skin; Z87.442 Personal history of urinary calculi; Z98.41 Cataract extraction status, right eye; Z82.0 Family history of epilepsy and other diseases of the nervous system; Z81.8 Family history of other mental and behavioral disorders; Z23 Encounter for immunization
CPT/HCPCS: 36415; 80048; 85025; 85610; 85730; 88309; 90732; 94760; A9270-GY; C1776; J0780; J1335; J1644; J1885; J2250; J2270; J2405; J2704; J2710; J3010; J3490

== ENCOUNTER 2018-06-12 07:53 | Day surgery (SDC) | payer MEDICARE, OTHER ==
[~2018-06-12 07:53] MED LIST changes: -ERTApenem 1 GM in 50 mL NS IVPB ONE; +Famotidine IV* 10 MG/ML 2 ML (20 mg) IV ONE
[2018-06-12] MEDS ORDERED: Famotidine IV* 10 MG/ML 2 ML (20 mg) ONE (07:54)
[2018-06-12] MEDS ORDERED: ceFAZolin 2 GM PREMIX (*) 2 GM/50 ML BAG IVPB ONE (07:54)
[2018-06-12] MEDS ORDERED: Naloxone* 0.4 MG/ML 1 ML VIAL IV PRN ×2 (09:18→09:55)
[2018-06-12] MEDS ORDERED: oxyCODONE/Acetamin 5/325 MG* TAB PO PRN (11:16)
[2018-06-12 11:22] VITALS: BP 126/70
--- NOTE | 2018-06-12 12:36 | RAD ---
CPT II Codes: G9500 Indication: PowerPort placement. Fluoroscopic services provided for referring physician for PowerPort placement. 12 seconds of fluoroscopy time was used. IMPRESSION: PowerPort placement and fluoroscopic guidance.
--- NOTE | 2018-06-13 04:53 | OP ---
CC: Dr. Rayshawn Espinal; Dr. Trevon Nieves.* DATE OF OPERATION: 06/12/18 - [facility] DATE OF : 44 SURGEON: Michoacano Hoang MD PROPERTY UTILIZATION MANAGER: None. ANESTHESIOLOGIST: Sgaar Cuellar MD ANESTHESIA: Local MAC. PRE-OP DIAGNOSIS: Malignant melanoma. POST-OP DIAGNOSIS: Malignant melanoma. OPERATIVE PROCEDURE: PowerPort placement via left cephalic vein cut down. ESTIMATED BLOOD LOSS: Minimal. IV FLUIDS: Crystalloid. SPECIMENS: None. DRAINS: None. COMPLICATIONS: None. COUNTS: Instrument, needle, and sponge counts were correct. DESCRIPTION OF PROCEDURE: The patient was brought to the operating room and placed on the table supine. Sequential compression devices were placed in both lower extremities and general anesthesia was administered. The neck and chest were prepped and draped in the usual sterile fashion. Time-out was performed. Local anesthetic was infiltrated for a left subclavian approach. There was cannulation of vein with aspiration of venous blood on three attempts, but I was unable to pass the guidewire. Therefore, a decision was made to perform left cephalic vein cut down. Local anesthetic was infiltrated into the skin overlying the deltopectoral triangle, transverse incision was created. Subcutaneous tissues were divided with cautery and blunt dissection was used to dissect out the left cephalic vein , which was isolated with 3-0 silk ties. Incision for the pocket was made in the left upper chest after infiltrating additional anesthetic and an 8-Ukrainian PowerPort was tunneled to the pocket. The vein was ligated distally and a venotomy was created transversely and then the 8-Ukrainian catheter was inserted into the superior vena cava and confirmed under fluoroscopy. The catheter was cut to an appropriate length, connected to the port, was placed into the pocket , and sutured in place with 2-0 Prolene. The port was accessed through and flushed easily. The pocket was closed in two layers with 3-0 Vicryl for the subcutaneous tissue, 4-0 Monocryl for the skin. The initial incision was closed in the same fashion. Steri-Strips were applied to each site with Tegaderm dressing. The patient tolerated the procedure well, was awakened and transferred to recovery in stable condition. [id number]/[facility] #: [id number] [facility]
== END 2018-06-12 11:34 | disposition home or self-care (01) ==
LOC: OR 07:53
PROVIDERS: ATTEND Surgery
DX: C43.4 Malignant melanoma of scalp and neck (principal); Z79.84 Long term (current) use of oral hypoglycemic drugs; I48.91 Unspecified atrial fibrillation; Z79.01 Long term (current) use of anticoagulants; Z86.73 Personal history of transient ischemic attack (TIA), and cerebral infarction without residual deficits; E78.5 Hyperlipidemia, unspecified; N18.9 Chronic kidney disease, unspecified; I12.9 Hypertensive chronic kidney disease with stage 1 through stage 4 chronic kidney disease, or unspecified chronic kidney disease; Z85.038 Personal history of other malignant neoplasm of large intestine; E11.22 Type 2 diabetes mellitus with diabetic chronic kidney disease; Z87.891 Personal history of nicotine dependence
CPT/HCPCS: 76000; C1788; J0690

== ENCOUNTER 2018-06-25 20:42 | Inpatient (IN) | payer MEDICARE, OTHER ==
--- OUTSIDE RECORDS SUMMARY | 2018-06-25 20:51 | XMS REPORT ---
:1940 External Reference #:[id number] Author Organization [employer] Address [address] [address] Phone [phone] Care Team Providers Name Role Phone Trevon Nieves MD Primary Care Physician Unavailable Payers Type Date Identification Numbers Payment Provider Subscriber Medicare Primary Policy Number: [id number] Medicare Arturo Kaur PayID: [id number] [address] [place] [address] Commercial Policy Number: [id number] [facility] Arturo Kaur PayID: [id number] [address] [place] [address] Problems Description No Information Family History Date Family Member(s) Problem(s) Comments Father due to suicide () Mother Multiple Sclerosis (MS) Mother due to Multiple Sclerosis () Siblings None Social History Type Date Description Comments Marital Status Lives With 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 Daily Caffeine Comsumes on average 1 cup of decaff coffee per day Exercise Type/Frequency Exercises sporadically Allergies, Adverse Reactions, Alerts Date Description Reaction Status Severity Comments 02/09/2016 NKDA active Medications Medication Date Status Form Strength Qnty SIG Indications Ordering Provider Diltiazem CD 00/ Active Caps ER 180mg 90caps 1 by mouth Qutaybeh 0000 24HR every day Gurpreet Gibbons M.D. Lisinopril / Active Tablets 10mg 90tabs 1 by mouth Qutaybeh 0000 every day Gurpreet Gibbons M.D. Eliquis / Active Tablets 5mg 180tab 1 by mouth Qutaybeh 0000 s twice a S. day Keyur Gibbons Metformin HCL / Active Tablets 500mg 1 by mouth Unknown 0000 twice a day Fenofibrate / Active Tablets 145mg 1 by mouth Unknown 0000 every day Glimepiride / Active Tablets 4mg 1 by mouth Unknown 0000 every day Neomycin 01/17/ Hx Tablets 500mg 6tabs 2 tabs at Isha Sulfate 2018 1pm and B. 7pm on the [place], day before DIRECTOR SALES surgery and 2 tabs at 7am on the day of surgery Metronidazole 01/17/ Hx Tablets 500mg 3tabs 1 tablet Isha 2018 by mouth B. at 1pm and [place], 7pm on DIRECTOR SALES 11/29/17 and 1 tablet at 7am 11/30/17 Peg-3350/Electr 01/17/ Hx Solution 236gm 4000ml Take as Isha olytes 2018 Rec Directed B. On The Day [place], Before DIRECTOR SALES Surgery Levofloxacin / Hx Tablets 500mg one by Unknown 0000 - mouth 02/07/ daily for 2015 10 days Benzonatate / Hx Capsules 200mg one by Unknown 0000 - mouth 02/08/ three 2016 times daily as needed for cough Sucralfate / Hx Tablets 1gm 1 by mouth Unknown 0000 four times a day Omeprazole / Hx Capsules 20mg 1 by mouth Unknown 0000 DR every day Levofloxacin / Hx Tablets 500mg 1 by mouth Unknown 0000 every day Vital Signs Date Vital Result Comment 06/07/2018 Height 68 inches 5'8" Weight 209.00 lb Heart Rate 62 /min BP Systolic 118 mmHg BP Diastolic 82 mmHg Respiratory Rate 18 /min Body Temperature 99.1 F BMI (Body Mass Index) 31.8 kg/m2 02/23/2018 Heart Rate 72 /min BP Systolic 126 mmHg BP Diastolic 66 mmHg Respiratory Rate 18 /min Body Temperature 99.0 F 02/02/2018 Heart Rate 78 /min BP Systolic Sitting 122 mmHg BP Diastolic Sitting 74 mmHg Respiratory Rate 18 /min Body Temperature 97.4 F 01/17/2018 Height 67 inches 5'7" Weight 213.00 lb Heart Rate 66 /min BP Systolic Sitting 112 mmHg BP Diastolic Sitting 68 mmHg Respiratory Rate 18 /min Body Temperature 97.6 F BMI (Body Mass Index) 33.4 kg/m2 01/12/2018 Height 67 inches 5'7" Weight 213.50 lb Heart Rate 76 /min BP Systolic Sitting 122 mmHg LA, l cuff BP Diastolic Sitting 72 mmHg LA, l cuff BMI (Body Mass Index) 33.4 kg/m2 Ejection Fraction 50%-55% echo 10/03/17 01/04/2018 Height 67 inches 5'7" Weight 210.00 lb Heart Rate 72 /min BP Systolic 120 mmHg BP Diastolic 70 mmHg Respiratory Rate 18 /min Body Temperature 98.0 F BMI (Body Mass Index) 32.9 kg/m2 10/31/2017 Height 67 inches 5'7" Weight 230.25 lb Heart Rate 76 /min BP Systolic Sitting 120 mmHg LA, reg BP Diastolic Sitting 80 mmHg LA, reg BMI (Body Mass Index) 36.1 kg/m2 Ejection Fraction 50%-55% 10/03/17 echo 08/30/2017 Height 67 inches 5'7" Weight 251.25 lb with shoes Heart Rate 66 /min BP Systolic Sitting 156 mmHg LA reg cuff BP Diastolic Sitting 88 mmHg LA reg cuff BMI (Body Mass Index) 39.3 kg/m2 Ejection Fraction 50%-55% echo 12/29/16 12/21/2016 Height 67 inches 5'7" Weight 246.00 lb w/shoes Heart Rate 70 /min BP Systolic Sitting 150 mmHg LA lg cuff BP Diastolic Sitting 80 mmHg LA lg cuff BMI (Body Mass Index) 38.5 kg/m2 Ejection Fraction 50-55% Allen 02/01/16 04/11/2016 Height 67 inches 5'7" Weight 229.00 lb with shoes Heart Rate 72 /min BP Systolic 152 mmHg LA lrg cuff BP Diastolic 76 mmHg LA lrg cuff BMI (Body Mass Index) 35.9 kg/m2 Ejection Fraction 50%-55% allen 02/01/16 02/09/2016 Height 67 inches 5'7" Weight 245.25 lb with shoes Heart Rate 84 /min BP Systolic 136 mmHg LA lrg cuff BP Diastolic 68 mmHg LA lrg cuff BMI (Body Mass Index) 38.4 kg/m2 Ejection Fraction 50%-55% Allen 02/01/16 Results Test Date Test Result H/L Range Note Laboratory test 01/23/2018 Surgical Pathology SEE RESULT BELOW 1 finding Laboratory test 01/23/2018 Point of Care 174 mg/dL High 70-100 2 finding Glucose Laboratory test 01/23/2018 Point of Care 153 mg/dL High 70-100 3 finding Glucose Laboratory test 01/23/2018 Point of Care 150 mg/dL High 70-100 4 finding Glucose Laboratory test 01/23/2018 Point of Care 114 mg/dL High 70-100 5 finding Glucose Inr/Protime 01/23/2018 Inr 0.93 0.77-1.02 Laboratory test 01/23/2018 Partial Thrombo 27.9 seconds 26.0-36.3 finding Time PTT CBC Auto Diff 01/17/2018 White Blood Count 10.6 10^3/uL 3.5-10.8 Red Blood Count 5.01 10^6/uL 4.0-5.4 Hemoglobin 14.7 g/dL 14.0-18.0 Hematocrit 44 % 42-52 Mean Corpuscular Volume 89 fL 80-94 Mean Corpuscular Hemoglobin 30 pg 27-31 Mean Corpuscular HGB Conc 33 g/dL 31-36 Red Cell Distribution Width 16 % High 10.5-15 Platelet Count 324 10^3/uL 150-450 Mean Platelet Volume 8.1 um3 7.4-10.4 Abs Neutrophils 6.4 10^3/uL 1.5-7.7 Abs Lymphocytes 3.1 10^3/uL 1.0-4.8 Abs Monocytes 0.9 10^3/uL High 0-0.8 Abs Eosinophils 0.1 10^3/uL 0-0.6 Abs Basophils 0.1 10^3/uL 0-0.2 Abs Nucleated RBC 0 10^3/uL Granulocyte % 60.3 % 38-83 Lymphocyte % 29.6 % 25-47 Monocyte % 8.7 % High 0-7 Eosinophil % 0.8 % 0-6 Basophil % 0.6 % 0-2 Nucleated Red Blood Cells % 0.1 Basic Metabolic Panel 01/17/2018 Sodium 140 mmol/L 139-145 Potassium 4.3 mmol/L 3.5-5.0 Chloride 106 mmol/L 101-111 Co2 Carbon Dioxide 25 mmol/L 22-32 Anion Gap 9 mmol/L 2-11 Glucose 92 mg/dL 70-100 Blood Urea Nitrogen 15 mg/dL 6-24 Creatinine 1.06 mg/dL 0.67-1.17 BUN/Creatinine Ratio 14.2 8-20 Calcium 9.2 mg/dL 8.6-10.3 Egfr Non- 67.9 >60 Egfr 87.4 >60 6 1 SEE RESULT BELOW Name: DEBRA KAUR : [address]: Michoacano Hoang MD Acct: [id number] Unit: [id number] AGE: 78 Location: [facility] 336-01 Re01/23/18 SEX: M Status: ADM IN SPEC: [id number] DAISHA: 01/23/18- SUBM DR: Michoacano Hoang MD REQ: [id number] RECD: 01/23/181434 STATUS: SOUT _ ORDERED: LEVEL 6 FINAL DIAGNOSIS Colon, sigmoid, partial colectomy: -- Previous biopsy site with no evidence of residual neoplasia. -- Diverticulosis. -- Incidental hyperplastic polyp. -- Seventeen lymph nodes negative for metastatic carcinoma (0/). PRE-OPERATIVE DIAGNOSIS Malignant neoplasm of sigmoid colon. GROSS DESCRIPTION The specimen is received in formalin labeled, Sigmoid Colon and Anastomotic Rings, and consists of a 17.0 cm length of previously incised colonic tissue with abundant adherent yellow pink fat. The circumference ranges from 4.2 to 5.0 cm. The serosa is smooth alfredo-adorno. There is an ill-defined blue-adorno area of submucosal tattooing measuring up to 2.1 cm, 0.4 cm from the nearest margin. There is a 1.2 x 1.1 x 0.7 cm alfredo-pink sessile polyp confined to the mucosa, 4.4 cm from the nearest margin. The remaining mucosa is glistening alfredo-pink with normal folds. There are multiple uncomplicated diverticula throughout the specimen and the muscularis propria is focally thickened measuring up to 0.6 cm. Sectioning through the adherent fat reveals multiple possible lymph nodes ranging from 0.2 cm to 1.1 cm in greatest dimension. Received separately in the same container are two alfredo -adorno annular intestinal tissue fragments measuring 2.2 x 2.0 x 1.4 cm and 2.8 x 2.3 x 1.2 cm; the smaller fragment is attached to a 5.0 by up to 3.1 x 3.1 cm silver metallic senior medical transcriptionist. Strickler Attendant sections are submitted in cassettes A through T as follows: A- margins to include inked margin closest to tattooing, B through F-tattooing, G through I -polyp, J through L-diverticula, M-thickened muscularis, N through R-multiple whole lymph nodes, S-one bisected lymph node and T-one trisected lymph node. Signed (signature on file) Stacy Munoz MD 04/09 1443 END OF REPORT DEPARTMENT OF PATHOLOGY, [address] [place] [address] Kermit Willingham M.D. Director [facility] # [id number] 2 Sys Dir: [id number] 3 Sys Dir: [id number] 4 Sys Dir: [id number] 5 Sys Dir: [id number] 6 Because ethnic data is not always readily available, this report includes an eGFR for both -Americans and non- Americans. The National Kidney Disease Education Program (NKDEP) does not endorse the use of the MDRD equation for patients that are not between the ages of 18 and 70, are , have extremes of body size, muscle mass, or nutritional status, or are non- or non-. According to the National Kidney Foundation, irrespective of diagnosis, the stage of the disease is based on the level of kidney function: Stage Description GFR(mL/min/1.73 m(2)) 1 Kidney damage with normal or decreased GFR 90 2 Kidney damage with mild decrease in GFR 60-89 3 Moderate decrease in GFR 30-59 4 Severe decrease in GFR 15-29 5 Kidney failure <15 (or dialysis) Procedures Date CPT Code Description Status 01/23/2018 69573 Laparscopy Surg Mobil Splenic Flexure Performed W/Part Completed Colectomy 01/23/2018 64972 Laparscopy Surg Mobil Splenic Flexure Performed W/Part Completed Colectomy 01/23/2018 94181 Laparoscopy,Colectomy,Partial Completed W/Anastomsis,W/Coloproctostomy 01/23/2018 38281 Laparoscopy,Colectomy,Partial Completed W/Anastomsis,W/Coloproctostomy 01/12/2018 56350 EKG Tracing & Interpretation Completed 10/03/2017 70152 ECHO Transthoracic, Real-Time 2D With Doppler And Color Completed Flow 10/03/2017 07496 ECHO Transthoracic, Real-Time 2D With Doppler And Color Completed Flow 09/28/2017 64250 Holter Monitor Review (24 hr)dr review & interp only Completed 09/26/2017 45684 ECG Monitor/Recording W/Visual Superimposition Scanning Completed 08/30/2017 73063 EKG Tracing & Interpretation Completed 12/29/2016 73148 ECHO Transthoracic, Real-Time 2D With Doppler And Color Completed Flow 12/21/2016 18789 EKG Tracing & Interpretation Completed 04/06/2016 49471 Treadmill Interp/Report Only Completed 04/06/2016 21486 Stress Test Supervsn W/Out I/R Completed 02/28/2016 51408 Holter Monitor Review (24 hr)dr review & interp only Completed 02/25/2016 68541 ECG Monitor/Recording W/Visual Superimposition Scanning Completed 02/09/2016 85034 EKG Tracing & Interpretation Completed 02/01/2016 14918 Color Flow Doppler/Interp & Reprt Completed 02/01/2016 64607 Color Flow Doppler/Interp & Reprt Completed 02/01/2016 64512 Pulse Wave/Continuous-Interp.RPT Completed 02/01/2016 37841 Pulse Wave/Continuous-Interp.RPT Completed 02/01/2016 69684 Echocardiography, Transesophageal, Real Time W/Image 2D Completed W/W/O M-M 02/01/2016 53599 Echocardiography, Transesophageal, Real Time W/Image 2D Completed W/W/O M-M 02/01/2016 77572 EKG, Interpretation Only Completed 02/01/2016 88064 Cardioversion Completed 01/31/2016 62361 ECHO Transthorasic Realtime 2D W Doppler & Color Flow Completed Hosp 01/31/2016 86705 EKG, Interpretation Only Completed 01/30/2016 01138 EKG, Interpretation Only Completed Encounters Type Date Location Provider CPT E/M Dx Office Visit 01/12/2018 10:20a [facility] Lita S. Shai, 13306 I48.2 Keyur I45.10 R94.31 I71.9 E66.9 I10 Z01.810 C18.7 Z68.33 Office Visit 01/04/2018 11:30a [facility] [place], [address] C18.7 Science Teacher FACS Office Visit 10/31/2017 2:00p [facility] Lita SCharanjit 20483 I48.92 Keyur Gibbons I71.9 Office Visit 10/20/2017 1:24p [facility], Lizeth Navarrete 94455 I63.9 Hospitalists ROVERTO Dubois I48.92 R50.9 R91.8 Office Visit 10/20/2017 12:11p [facility] [address] R53.83 I63.9 Z79.01 Office Visit 10/19/2017 12:06p [facility] [address] I63.9 R90.82 R53.83 Office Visit 10/19/2017 1:23p [facility], Lizeth Navarrete 58694 I63.9 Hospitalists Doto, DIRECTOR SALES I48.92 R50.9 R91.8 Office Visit 10/18/2017 3:03p [facility] Johnny Paris, 52422 R50.9 Infectious Diseases M.D. I63.9 Office Visit 10/18/2017 1:22p [facility], Jackie Sorensen, 34572 I63.9 Hospitalists D.O. I48.92 R50.9 Office Visit 10/17/2017 1:21p [facility], Clarke Nicholson, 75683 I63.9 Hospitalists M.D. I48.92 R13.10 A41.9 Office Visit 08/30/2017 3:40p [facility] Qutaybeh S. Maghaydah, 10885 I71.9 M.D. I48.91 I10 E78.2 I45.10 R94.31 Office Visit 12/21/2016 2:20p [facility] Qutaybeh S. Maghaydah, 86259 I48.91 M.D. I10 E78.2 I71.9 I44.0 I45.10 R94.31 Office Visit 04/11/2016 2:40p [facility] Qutaybeh S. Maghaydah, 70427 I48.91 M.D. I10 E78.2 I71.9 Office Visit 02/09/2016 1:00p [facility] Qutaybeh S. Maghaydah, 52958 E11.9 M.D. I48.91 I10 E78.2 R06.02 R94.31 I71.9 Office Visit 02/01/2016 3:28p [facility], Jackie Sorensen, 56738 E11.9 Hospitalists D.O. I48.91 I10 J40 Office Visit 01/31/2016 3:28p [facility], Jackie Sorensen, 36824 I48.91 Hospitalists D.O. E11.9 I10 J40 Office Visit 01/31/2016 4:25p [facility] Qutaybeh S. 92645 I48.1 Keyur Gibbons Office Visit 01/30/2016 3:27p [facility] Fernie, 73684 I48.91 Assoc,pc Hospitalists N.P. E11.9 I10 J06.9 Plan of Care Future Appointment(s):06/12/2018 12:00 pm - Michoacano Hoang MD, FACS at [facility]06/07/2018 - Lan Gore, MDC43.39 Malignant melanoma of other parts of faceFollow up:operating roomInstructions:Stop Eliquis after Monday night's dose
[2018-06-25] MEDS ORDERED: NS 0.9% 1000 ML*IV.FLUID IV ONE (22:06)
[2018-06-25] MEDS ORDERED: Vancomycin(*) 1,000 MG in NS 0.9% 250 ML* 250 ML IVPB ONE (22:07)
[2018-06-25 22:22] LABS: ABS Basophils 0.1 10^3/ul (0-0.2); ABS Eosinophils 0.1 10^3/ul (0-0.6); ABS Lymphocytes 2.5 10^3/ul (1.0-4.8); ABS Monocytes 1.2 10^3/ul (0-0.8); ABS Neutrophils 8.4 10^3/ul (1.5-7.7); ABS Nucleated RBC 0 10^3/ul; Eosinophil % 0.8 % (0-6); Hematocrit 45 % (42-52); Hemoglobin 15.2 g/dl (14.0-18.0); Lymphocyte % 19.9 % (25-47); Mean Corpuscular HGB Conc 34 g/dl (31-36); Mean Corpuscular Hemoglobin 29 pg (27-31); Mean Corpuscular Volume 87 fL (80-94); Mean Platelet Volume 7.8 um3 (7.4-10.4); Nucleated Red Blood Cells % 0.1; Platelet Count 273 10^3/ul (150-450); Red Blood Count 5.19 10^6/ul (4.00-5.40); Red Cell Distribution Width 15 % (10.5-15); White Blood Count 12.4 10^3/ul (3.5-10.8)
--- NOTE | 2018-06-25 22:27 | ED ---
Skin Complaint - HPI Summary HPI Summary: A 78 y/o male presents to ED c/o erythema of skin around left chest. As per triage, "Pt stated that he has an possible infection around his port that was placed on 06/05. There appears to be some new redness under the site". According to the patient, he was mowing his lawn and thinks he may have irritated the area where his port was placed. He has the port for his chemotherapy because he is undergoing immunotherapy for melanoma. His noted that his temperature was 100.5 at 1730, but was given 2 extra strength Tylenol which reduced the fever. The erythema started on Monday, but was not as bad as it was today which was coupled with a fever. Patient recieved one treatment of chemotherapy 2 weeks ago and due for another one next week (every 3 weeks). His oncologist, Dr. Hoang referred him to ED. - History of Current Complaint Chief Complaint: EDRashSkinAbscess Stated Complaint: POSSIBLE PORT INFECTION Hx Obtained From: Patient Onset/Duration: Started Days Ago, Still Present Skin Exposure Onset/Duration: Days Ago Timing: Constant Current Severity: None Pain Intensity: 0 Pain Scale Used: 0-10 Numeric Skin Location: Chest - Left Character: Redness Aggravating Symptom(s): Nothing Alleviating Symptom(s): OTC Meds - For Fever Associated Signs & Symptoms: Negative - Additional Pertinent History Primary Care Physician: ITALIA - Allergy/Home Medications Allergies/Adverse Reactions: Allergies Allergy/AdvReac Type Severity Reaction Status Date / Time No Known Allergies Allergy Verified 06/25/18 23:09 PMH/Surg Hx/FS Hx/Imm Hx Endocrine/Hematology History: Reports: Hx Diabetes - on medcaition Denies: Hx Thyroid Disease Cardiovascular History: Reports: Hx Hypercholesterolemia, Hx Hypertension - CONTROLED W/RX, Hx Valvular Heart Disease, Other Cardiovascular Problems/ Disorders - Atrial Fibrillation-on Eliquis Denies: Hx Angina, Hx Coronary Artery Disease, Hx Myocardial Infarction, Hx Pacemaker/ICD Respiratory History: Denies: Hx Asthma, Hx Chronic Obstructive Pulmonary Disease (COPD), Other Respiratory Problems/Disorders GI History: Reports: Hx Gastroesophageal Reflux Disease - history of, after colon surgery 02/07-none recent, Hx Hiatal Hernia, Other GI Disorders - Colon ptorfmigy-culvyg-3/18 Denies: Hx Ulcer History: Reports: Hx Kidney Stones, Other Problems/Disorders - BLADDER STONES approx 40 years ago Musculoskeletal History: Reports: Hx Arthritis - HANDS, KNEES Denies: Other Musculoskeletal History Sensory History: Reports: Hx Cataracts, Hx Contacts or Glasses - Glasses, Hx Hearing Aid - Bilateral hearing aids Opthamlomology History: Reports: Hx Cataracts, Hx Contacts or Glasses - Glasses Neurological History: Denies: Other Neuro Impairments/Disorders Psychiatric History: Denies: Hx Panic Disorder - Cancer History Cancer Type, Location and Year: SKIN MELANOMA - Surgical History Surgery Procedure, Year, and Place: Bladder stones removed approx 40 years ago. PILONIDAL CYST REMOVED. Colon resection 02/07. Malignant melanoma removed from face x2 Hx Anesthesia Reactions: No Infectious Disease History: No Infectious Disease History: Denies: Hx Hepatitis, Hx Human Immunodeficiency Virus (HIV), History Other Infectious Disease, Traveled Outside the [place] in Last 30 Days - Family History Known Family History: Negative: Hypertension - Social History Alcohol Use: None Substance Use Type: Reports: None Smoking Status (MU): Former Smoker Amount Used/How Often: 2 YEARS while in college Have You Smoked in the Last Year: No Review of Systems Positive: Fever Positive: Other - POSITIVE: Erythema All Other Systems Reviewed And Are Negative: Yes Physical Exam - Summary Physical Exam Summary: VITAL SIGNS: Reviewed. GENERAL: Patient is a well-developed and nourished male who is lying comfortable in the stretcher. Patient is not in any acute respiratory distress. HEAD AND FACE: No signs of trauma. No ecchymosis, hematomas or skull depressions. No sinus tenderness. EYES: PERRLA, EOMI x 2, No injected conjunctiva, no nystagmus. EARS: Hearing grossly intact. Ear canals and tympanic membranes are within normal limits. MOUTH: Oropharynx within normal limits. NECK: Supple, trachea is midline, no adenopathy, no JVD, no carotid bruit, no c- spine tenderness, neck with full ROM. CHEST: Symmetric, no tenderness at palpation LUNGS: Clear to auscultation bilaterally. No wheezing or crackles. CVS: Regular rate and rhythm, S1 and S2 present, no murmurs or gallops appreciated. ABDOMEN: Soft, non-tender. No signs of distention. No rebound no guarding, and no masses palpated. Bowel sounds are normal. EXTREMITIES: FROM in all major joints, no edema, no cyanosis or clubbing. NEURO: Alert and oriented x 3. No acute neurological deficits. Speech is normal and follows commands. SKIN: Diffuse area of swelling and tenderness over left chest area Triage Information Reviewed: Yes Vital Signs On Initial Exam: Initial Vitals Temp Pulse Resp BP Pulse Ox 98.4 F 74 18 137/65 96 06/25/18 20:43 06/25/18 20:43 06/25/18 20:43 06/25/18 20:43 06/25/18 20:43 Vital Signs Reviewed: Yes Diagnostics - Vital Signs Vital Signs Temp Pulse Resp BP Pulse Ox 06/25/18 20:43 98.4 F 74 18 137/65 96 - Laboratory Result Diagrams: 06/25/18 22:15 06/25/18 22:15 Lab Statement: Any lab studies that have been ordered have been reviewed, and results considered in the medical decision making process. - Radiology CXR Radiology Interpretation Completed By: ED Physician - Cardiomegaly vs. pericardial effusion. No pleural effusion. Pending official report. Course/Dx - Course Course Of Treatment: A 78 y/o male presents to ED c/o erythema of skin around left chest. A CXR revealed cardiomegaly vs. pericardial effusion. No pleural effusion. In the ED course, the patient received Vancomycin and IV fluids. Patient care was discussed with hospitalist, Dr. Vega, who accepts patient for admission. Patient will be admitted with a diagnosis of left chest wall cellulitis. Patient is agreeable with this plan. - Diagnoses Provider Diagnoses: Cellulitis of chest wall - Physician Notifications Discussed Care Of Patient With: Arturo Vega Time Discussed With Above Provider: 23:22 Instructed by Provider To: Other - Accepts patient for admission. Discharge - Sign-Out/Discharge Documenting (check all that apply): Patient Departure - ADMIT - Discharge Plan Condition: Stable Disposition: ADMITTED TO [facility] Referrals: Trevon Nieves MD [Primary Care Provider] - - Attestation Statements Document Initiated by Scribe: Yes Documenting Scribe: Gary Kirkpatrick Provider For Whom Mike is Documenting (Include Credential): Linda Mckeon Attestation: Gary Turner, scribed for Gentry Payne on 06/25/18 at 2325.
[2018-06-25 22:31] LABS: INR 1.34 (0.77-1.02)
[2018-06-25 22:40] LABS: EGFR Non-African American 43.2 (>60)
--- NOTE | 2018-06-25 23:59 | HP ---
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 He has done well until yesterday when the L chest became tender, swollen, red, warmth, and foul smelling cloudy yellow drainage began from the port site. He was found to have a temperature of 100.5F at home, but denies chills, sweats, N/V/D, or other issues. PMedHx Jero IV melanoma R face diagnosed 11/2017 s/p excision w/ recurrence of in- transit lesions T1aN0 colon CA s/p hemicoloctomy 01/2018 DM2 AFIB on apixaban HTN hypertriglyceridemia legally blind OS L central retinal vein occlusion R central retinal artery occlusion bladder stones s/p surgical extraction Ambulatory Orders Apixaban* [Eliquis*] 5 mg PO BID 10/17/17 Fenofibrate(NF) [Tricor(NF)] 145 mg PO QPM 10/17/17 Glimepiride [Amaryl] 4 mg PO QAM 10/17/17 Lisinopril 10 mg PO QAM 10/17/17 dilTIAZem HCl [Diltiazem 24Hr ER] 180 mg PO QPM 10/17/17 metFORMIN* [Glucophage 500 MG TAB *] 500 mg PO BID 10/25/17 Allergies No Known Allergies Allergy (Verified 06/25/18 23:09) PSurgHx hemicolectomy 01/2018 R facial melanoma excision R cataract extraction pilonydal cyst excision bladder stone excision SocHx: no tobacco, rare alcohol, no recreational drugs; 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 Father passed from suicide. ROS: as above, otherwise reviewed and all were negative vitals: Vital Signs Temp 36.8 C 06/26/18 01:19 Pulse 70 06/26/18 01:19 Resp 18 06/26/18 01:19 BP 129/70 06/26/18 01:19 Pulse Ox 98 06/26/18 01:19 Intake & Output 06/25/18 06/25/18 06/26/18 11:59 23:59 11:59 Weight 94.801 kg Constitutional: NAD, normally developed, obese white male HEENM: atraumatic; sclera/conjunctiva: anicteric/clear; hearing: clinically intact; oropharynx: clear, mucosa moist Neck: soft tissue: non-tender; thyroid: non-tender Pulmonary: clear to auscultation bilaterally, good aeration, no accessory muscle use CV: RR/RR, normal S1S2, no carotid bruit, no jugular venous distention, 2+ B DP/ PT, no edema Abdominal: soft, non-distended, non-tender, no rebound/guarding/rigidity, normoactive bowel sounds, no hepatosplenomegaly or masses, no costovertebral angle tenderness Musculoskeletal: general: grossly intact, non-tender Integumental: L anterior chest with extensive erythema, mild [place]-port induration, warmth, thin cloudy yellow drainage from port site Psychiatric orientation: AA&O to PPS affect: calm mood: cooperative eye contact: good content: reliable responses: timely insight: good Testing: Lab Results 06/25/18 06/25/18 06/25/18 Range/Units 22:15 22:15 22:15 WBC 12.4 H (3.5-10.8) 10^3/ul RBC 5.19 (4.00-5.40) 10^6/ul Hgb 15.2 (14.0-18.0) g/dl Hct 45 (42-52) % MCV 87 (80-94) fL MCH 29 (27-31) pg MCHC 34 (31-36) g/dl RDW 15 (10.5-15) % Plt Count 273 (150-450) 10^3/ul MPV 7.8 (7.4-10.4) um3 Neut % (Auto) 68.2 (38-83) % Lymph % (Auto) 19.9 L (25-47) % King % (Auto) 9.9 H (0-7) % Eos % (Auto) 0.8 (0-6) % Baso % (Auto) 1.2 (0-2) % Absolute Neuts (auto) 8.4 H (1.5-7.7) 10^3/ul Absolute Lymphs (auto) 2.5 (1.0-4.8) 10^3/ul Absolute Monos (auto) 1.2 H (0-0.8) 10^3/ul Absolute Eos (auto) 0.1 (0-0.6) 10^3/ul Absolute Basos (auto) 0.1 (0-0.2) 10^3/ul Absolute Nucleated RBC 0 10^3/ul Nucleated RBC % 0.1 INR (Anticoag Therapy) 1.34 H (0.77-1.02) APTT 35.4 (26.0-36.3) seconds Sodium 137 (135-145) mmol/L Potassium 4.5 (3.5-5.0) mmol/L Chloride 104 (101-111) mmol/L Carbon Dioxide 28 (22-32) mmol/L Anion Gap 5 (2-11) mmol/L BUN 26 H (6-24) mg/dL Creatinine 1.57 H (0.67-1.17) mg/dL Est GFR ( Amer) 52.2 (>60) Est GFR (Non-Af Amer) 43.2 (>60) BUN/Creatinine Ratio 16.6 (8-20) Glucose 94 (70-100) mg/dL Lactic Acid (0.5-2.0) mmol/L Calcium 9.7 (8.6-10.3) mg/dL Total Bilirubin 0.80 (0.2-1.0) mg/dL AST 17 (13-39) U/L ALT 12 (7-52) U/L Alkaline Phosphatase 31 L (34-104) U/L C-Reactive Protein 134.51 H (<8.01) mg/L Total Protein 7.4 (6.4-8.9) g/dL Albumin 3.9 (3.2-5.2) g/dL Globulin 3.5 (2-4) g/dL Albumin/Globulin Ratio 1.1 (1-3) 06/25/18 Range/Units 22:15 WBC (3.5-10.8) 10^3/ul RBC (4.00-5.40) 10^6/ul Hgb (14.0-18.0) g/dl Hct (42-52) % MCV (80-94) fL MCH (27-31) pg MCHC (31-36) g/dl RDW (10.5-15) % Plt Count (150-450) 10^3/ul MPV (7.4-10.4) um3 Neut % (Auto) (38-83) % Lymph % (Auto) (25-47) % King % (Auto) (0-7) % Eos % (Auto) (0-6) % Baso % (Auto) (0-2) % Absolute Neuts (auto) (1.5-7.7) 10^3/ul Absolute Lymphs (auto) (1.0-4.8) 10^3/ul Absolute Monos (auto) (0-0.8) 10^3/ul Absolute Eos (auto) (0-0.6) 10^3/ul Absolute Basos (auto) (0-0.2) 10^3/ul Absolute Nucleated RBC 10^3/ul Nucleated RBC % INR (Anticoag Therapy) (0.77-1.02) APTT (26.0-36.3) seconds Sodium (135-145) mmol/L Potassium (3.5-5.0) mmol/L Chloride (101-111) mmol/L Carbon Dioxide (22-32) mmol/L Anion Gap (2-11) mmol/L BUN (6-24) mg/dL Creatinine (0.67-1.17) mg/dL Est GFR ( Amer) (>60) Est GFR (Non-Af Amer) (>60) BUN/Creatinine Ratio (8-20) Glucose (70-100) mg/dL Lactic Acid 1.0 (0.5-2.0) mmol/L Calcium (8.6-10.3) mg/dL Total Bilirubin (0.2-1.0) mg/dL AST (13-39) U/L ALT (7-52) U/L Alkaline Phosphatase (34-104) U/L C-Reactive Protein (<8.01) mg/L Total Protein (6.4-8.9) g/dL Albumin (3.2-5.2) g/dL Globulin (2-4) g/dL Albumin/Globulin Ratio (1-3) CXR, personally reviewed: marked increase in size of cardiac silhouette compared to 12/2017 concerning for interval development of large pericardial effusion (of which if present he is asymptomatic), no acute pulmonary process Impression: 78M HX Jero IV melanoma R face diagnosed 11/2017 s/p excision w/ recurrence of in-transit lesions, T1aN0 colon CA s/p hemicoloctomy 01/2018, DM2 , AFIB on apixaban, HTN, & legally blind OS presenting with sepsis (fever & leukocytosis) 2nd port-associated L chest cellulitis and abnormal CXR DIAGNOSIS & PLAN Primary sepsis (fever & leukocytosis) 2nd port-associated L chest cellulitis, suspect MSSA vs MRSA : IV vancomycin & cefepime : IVFs 1L in ED then 125cc/hr : no 30cc/kg bolus 2nd concern for asymptomatic [place]-cardial effusion : wound, port, & blood CXs : will need surgical consult in AM for port removal : hold apixaban & start heparin GTT in AM : NPO x/ meds with sips water : supportive care abnormal CXR concerning for interval development of large asymptomatic pericardial effusion : ECHO in AM : consider cardiology consult pending ECHO report Secondary Jero IV melanoma R face diagnosed 11/2017 s/p excision w/ recurrence of in- transit lesions T1aN0 colon CA s/p hemicoloctomy 01/2018 : management per oncology DM2 : check A1c : Q4H glucometry w/ correctional lispro while NPO : hold metformin & glimepiridie AFIB : hold apixaban, start heparin GTT in AM as above : continue diltiazem HTN : continue lisinopril & diltiazem hypertriglyceridemia : continue fenofibrate Admission Rational: Inpatient as without the above interventions the risk of impending adverse outcome is unacceptably high; inappropriate for the outpatient setting DVTp: heparin GTT Code Status: full HCP: Critical Care time: 55minutes with >50% spent at the bedside obtaining a history , performing the examination, advising of diagnosis & treatment options along with risks/benefits/reasoning; remainder spent discussing with ER MD, reviewing labs and radiology exams
[2018-06-26] MEDS ORDERED: Cefepime(*) 1 GM in NS 0.9% 50 ML* 50 ML IVPB SCH (01:00)
[2018-06-26] MEDS ORDERED: Melatonin 3 MG TAB PO PRN (01:49)
[2018-06-26] MEDS ORDERED: Acetaminophen TAB* 325 MG PO PRN (01:49)
[2018-06-26] MEDS ORDERED: Ondansetron ODT TAB* 4 MG PO PRN (01:49)
[2018-06-26] MEDS ORDERED: Vancomycin per Pharmacy* NOTE FOLLOW UP SCH (02:00)
[2018-06-26] MEDS ORDERED: Heparin VIAL(*) 5000 UNITS/ML VIAL (FIVE THOUSAND) IV PRN (02:03)
[2018-06-26] MEDS: Insulin LISPRO* 1 UNITS UNIT SUBCUT SCH ×6 (02:23→21:15)
[2018-06-26] MEDS: NS 0.9% 1000 ML* 1,000 ML IV SCH ×2 (03:06→17:29)
[2018-06-26] MEDS: Cefepime 1 GM in Dextrose(*) 1 GM/50 ML BAG IV SCH ×2 (03:06→12:51)
[2018-06-26] MEDS: Omeprazole CAP* 20 MG PO SCH (06:38)
[2018-06-26 07:02] LABS: ABS Basophils 0.1 10^3/ul (0-0.2); ABS Eosinophils 0.1 10^3/ul (0-0.6); ABS Lymphocytes 1.7 10^3/ul (1.0-4.8); ABS Monocytes 0.9 10^3/ul (0-0.8); ABS Neutrophils 5.8 10^3/ul (1.5-7.7); ABS Nucleated RBC 0 10^3/ul; Eosinophil % 1.2 % (0-6); Hematocrit 40 % (42-52); Hemoglobin 13.6 g/dl (14.0-18.0); Lymphocyte % 19.2 % (25-47); Mean Corpuscular HGB Conc 34 g/dl (31-36); Mean Corpuscular Hemoglobin 29 pg (27-31); Mean Corpuscular Volume 86 fL (80-94); Mean Platelet Volume 7.8 um3 (7.4-10.4); Nucleated Red Blood Cells % 0; Platelet Count 231 10^3/ul (150-450); Red Blood Count 4.69 10^6/ul (4.00-5.40); Red Cell Distribution Width 15 % (10.5-15); White Blood Count 8.6 10^3/ul (3.5-10.8)
[2018-06-26 07:14] LABS: EGFR Non-African American 63.1 (>60)
--- NOTE | 2018-06-26 07:53 | RAD ---
Indication: Fever. Single frontal view of the chest performed at 2216 hours was reviewed. Comparison is made with previous exam dated January 17, 2018. No mediastinal shift is noted. There is cardiomegaly noted. Lung tao appear clear. IMPRESSION: NO ACTIVE CARDIOPULMONARY DISEASE IS NOTED. R0
[2018-06-26] MEDS ORDERED: Heparin DRIP 25,000 UNITS(*) 25,000 UNITS/500 ML BAG IVPB SCH (09:00)
[2018-06-26] MEDS ORDERED: Vancomycin(*) 1,250 MG in NS 0.9% 250 ML* 250 ML IVPB SCH (09:00)
[2018-06-26] MEDS ORDERED: Lisinopril TAB* 10 MG PO SCH (09:00)
[2018-06-26] MEDS: Docusate CAP* 100 MG PO SCH ×2 (09:24→21:31)
[2018-06-26 09:57] LABS: Urine Appearance Clear; Urine Blood Negative (Negative); Urine Color Yellow; Urine Ketones Negative (Negative); Urine Protein Negative (Negative); Urine Specific Gravity 1.013 (1.010-1.030); Urine Urobilinogen Negative (Negative)
--- NOTE | 2018-06-26 11:56 | PN ---
Progress Note - Progress Note Date of Service: 06/26/18 SOAP: Subjective: []Feeling fine. No significant complaints. Chest wall looks a little better per . No further fevers. Wants to eat. No SOB, chest pain or pressure. Medications: Acetaminophen (Tylenol Tab*) 650 mg PO Q6H PRN PRN Reason: FEVER/PAIN Diltiazem HCl (Cardizem Cd Cap*) 180 mg PO QPM [facility] Docusate Sodium (Colace Cap*) 200 mg PO BID [facility] Last Admin: 06/26/18 09:24 Dose: 200 mg Fenofibrate (Tricor(Nf)) 145 mg PO QPM [facility]; Protocol Heparin Sodium (Porcine) (Heparin Vial(*)) 0 units IV .BOLUS PRN PRN Reason: PER HEPARIN DRIP PROTOCOL Cefepime HCl (Maxipime 1 Gm In Dextrose Duplex (*)) 1 gm in 50 mls @ 100 mls/ hr IV Q12H [facility] Last Admin: 06/26/18 03:06 Dose: 100 mls/hr Heparin Sodium/Dextrose (Heparin Drip 25,000 Units(*)) 25,000 units in 500 mls @ 0 mls/hr IVPB PER RATE [facility]; Protocol Sodium Chloride (Ns 0.9% 1000 Ml*) 1,000 mls @ 125 mls/hr IV PER RATE [facility] Last Admin: 06/26/18 03:06 Dose: 125 mls/hr Vancomycin HCl 1,250 mg/ (Sodium Chloride) 250 mls @ 166.667 mls/hr IVPB Q24H [facility] Last Admin: 06/26/18 09:24 Dose: 166.667 mls/hr Insulin Human Lispro (Humalog*) 0 units SUBCUT Q4H [facility]; Protocol Last Admin: 06/26/18 09:46 Dose: Not Given Lisinopril (Prinivil Tab*) 10 mg PO QPM [facility] Melatonin (Melatonin) 3 mg PO BEDTIME PRN; Protocol PRN Reason: Sleep Omeprazole (Prilosec Cap*) 20 mg PO DAILY@0600 [facility] Last Admin: 06/26/18 06:38 Dose: Not Given Ondansetron HCl (Zofran Odt Tab*) 4 mg PO Q6H PRN PRN Reason: n/v Pharmacy Consult (Vancomycin Per Pharmacy*) 1 note FOLLOW UP .VANC PER PHARMACY [facility] Pharmacy Profile Note (Vancomycin Trough Check) 1 note FOLLOW UP 0830 ONE Stop: 06/28/18 08:31 Objective: [] Vital Signs Temp Pulse Resp BP Pulse Ox 98.6 F 73 24 114/67 98 06/26/18 11:19 06/26/18 11:19 06/26/18 11:19 06/26/18 11:19 06/26/18 11:19 A&Ox3, EOMI, [place] Port LCW with surrounding erythema without significant tenderness, no futher puss expressed HRR, S1S2, distant heart sounds LS clear, resp. even and non-labored +BS, abd. soft and on-tender Laboratory Results - last 24 hr 06/25/18 06/25/18 06/25/18 22:15 22:15 22:15 WBC 12.4 H RBC 5.19 Hgb 15.2 Hct 45 MCV 87 MCH 29 MCHC 34 RDW 15 Plt Count 273 MPV 7.8 Neut % (Auto) 68.2 Lymph % (Auto) 19.9 L [place] % (Auto) 9.9 H Eos % (Auto) 0.8 Baso % (Auto) 1.2 Absolute Neuts (auto) 8.4 H Absolute Lymphs (auto) 2.5 Absolute Monos (auto) 1.2 H Absolute Eos (auto) 0.1 Absolute Basos (auto) 0.1 Absolute Nucleated RBC 0 Nucleated RBC % 0.1 INR (Anticoag Therapy) 1.34 H APTT 35.4 Sodium 137 Potassium 4.5 Chloride 104 Carbon Dioxide 28 Anion Gap 5 BUN 26 H Creatinine 1.57 H Est GFR ( Amer) 52.2 Est GFR (Non-Af Amer) 43.2 BUN/Creatinine Ratio 16.6 Glucose 94 POC Glucose (mg/dL) Hemoglobin A1c Lactic Acid Calcium 9.7 Total Bilirubin 0.80 AST 17 ALT 12 Alkaline Phosphatase 31 L C-Reactive Protein 134.51 H Total Protein 7.4 Albumin 3.9 Globulin 3.5 Albumin/Globulin Ratio 1.1 Urine Color Urine Appearance Urine pH Ur Specific Andrew Urine Protein Urine Ketones Urine Blood Urine Nitrate Urine Bilirubin Urine Urobilinogen Ur Leukocyte Esterase Urine Glucose 06/25/18 06/25/18 06/26/18 22:15 22:15 02:21 WBC RBC Hgb Hct MCV MCH MCHC RDW Plt Count MPV Neut % (Auto) Lymph % (Auto) [place] % (Auto) Eos % (Auto) Baso % (Auto) Absolute Neuts (auto) Absolute Lymphs (auto) Absolute Monos (auto) Absolute Eos (auto) Absolute Basos (auto) Absolute Nucleated RBC Nucleated RBC % INR (Anticoag Therapy) APTT Sodium Potassium Chloride Carbon Dioxide Anion Gap BUN Creatinine Est GFR ( Amer) Est GFR (Non-Af Amer) BUN/Creatinine Ratio Glucose POC Glucose (mg/dL) 79 Hemoglobin A1c 5.9 H Lactic Acid 1.0 Calcium Total Bilirubin AST ALT Alkaline Phosphatase C-Reactive Protein Total Protein Albumin Globulin Albumin/Globulin Ratio Urine Color Urine Appearance Urine pH Ur Specific Andrew Urine Protein Urine Ketones Urine Blood Urine Nitrate Urine Bilirubin Urine Urobilinogen Ur Leukocyte Esterase Urine Glucose 06/26/18 06/26/18 06/26/18 06:12 06:49 06:49 WBC 8.6 RBC 4.69 Hgb 13.6 L Hct 40 L MCV 86 MCH 29 MCHC 34 RDW 15 Plt Count 231 MPV 7.8 Neut % (Auto) 67.7 Lymph % (Auto) 19.2 L [place] % (Auto) 10.7 H Eos % (Auto) 1.2 Baso % (Auto) 1.2 Absolute Neuts (auto) 5.8 Absolute Lymphs (auto) 1.7 Absolute Monos (auto) 0.9 H Absolute Eos (auto) 0.1 Absolute Basos (auto) 0.1 Absolute Nucleated RBC 0 Nucleated RBC % 0 INR (Anticoag Therapy) APTT Sodium 140 Potassium 3.8 Chloride 108 Carbon Dioxide 26 Anion Gap 6 BUN 21 Creatinine 1.13 Est GFR ( Amer) 76.3 Est GFR (Non-Af Amer) 63.1 BUN/Creatinine Ratio 18.6 Glucose 84 POC Glucose (mg/dL) 71 Hemoglobin A1c Lactic Acid Calcium 8.6 Total Bilirubin AST ALT Alkaline Phosphatase C-Reactive Protein Total Protein Albumin Globulin Albumin/Globulin Ratio Urine Color Urine Appearance Urine pH Ur Specific Andrew Urine Protein Urine Ketones Urine Blood Urine Nitrate Urine Bilirubin Urine Urobilinogen Ur Leukocyte Esterase Urine Glucose 06/26/18 06/26/18 06/26/18 09:30 09:36 10:11 WBC RBC Hgb Hct MCV MCH MCHC RDW Plt Count MPV Neut % (Auto) Lymph % (Auto) [place] % (Auto) Eos % (Auto) Baso % (Auto) Absolute Neuts (auto) Absolute Lymphs (auto) Absolute Monos (auto) Absolute Eos (auto) Absolute Basos (auto) Absolute Nucleated RBC Nucleated RBC % INR (Anticoag Therapy) APTT 32.8 Sodium Potassium Chloride Carbon Dioxide Anion Gap BUN Creatinine Est GFR ( Amer) Est GFR (Non-Af Amer) BUN/Creatinine Ratio Glucose POC Glucose (mg/dL) 93 Hemoglobin A1c Lactic Acid Calcium Total Bilirubin AST ALT Alkaline Phosphatase C-Reactive Protein Total Protein Albumin Globulin Albumin/Globulin Ratio Urine Color Yellow Urine Appearance Clear Urine pH 5.0 Ur Specific Andrew 1.013 Urine Protein Negative Urine Ketones Negative Urine Blood Negative Urine Nitrate Negative Urine Bilirubin Negative Urine Urobilinogen Negative Ur Leukocyte Esterase Negative Urine Glucose Negative Microbiology 06/26/18 06:17 Skin and Soft Tissue MRSA/MSSA (PCR - Final Chest Mrsa Negative S.aureus Positive Gram Stain - Final Assessment: []78 yo with locally advanced, un-resectable, melanoma s/p C1 Pembroluzimab () presenting last night with LCW port infection (placed 06/05). Plan: []1. Port infection: likely will need removal though marked improvement with IV abx., suspect pocket cellulitis - d/c Vanco based on preliminary wound culture - requested onc. nurse to come access port for 2nd blood culture, but do NOT recommend keeping accessed d/t active infection - surgical consult, discussed with Dr. Marquez - DARON to eat for now as surgery pending d/t last eliquois dose <24 hrs ago 2. A.Fib and pericardial effusion: - echo today, though asymptomatic so will likely cont. to follow - last dose of apixaban 9/3 PM, with potential surgery I do not think there is significant benefit to hep gtt., discussed with attending and will d/c - HRR on exam, check EKG 3. Melanom: cont. immunotherapy as outpatient, can tx. with PIV if needed, no evidence for delay of C2 at this time
--- NOTE | 2018-06-26 14:56 | PN ---
Progress Note - Progress Note Date of Service: 06/26/18 Note: CTSP infected port Has pain, tenderness (mild), erythema extending over > 10 cm, no fluctuance, no discharge. Afeb WBC down today. Nurses tried to draw from port, looked "junky." I D/W oncology service. (HP) I think he will be best served by removal of the port, and iv abx He had eliquis last night, it would be best done tomorrow. Will arrange. Can do under local, no sedative.
--- NOTE | 2018-06-26 15:40 | ECHO ---
Patient: DEBRA GARCÍA [facility] Rec#: [id number] : 1940 Date: 06/26/2018 Age: 78y Height: 173 cm / 68.1 in Weight: 94.8 kg / 208.9 lbs Sex: M BSA: 2.1 Room#: [facility] Admit Date#: 06/26/2018 Type: Inpatient Referring: Arturo Vega MD Reading: Lita Gibbons MD Wildlife Control Operator: Joanna Odonnell RN RDCS CC: Trevon Nieves MD Transthoracic Echocardiogram Indication: Pericardial effusion, cardiomegaly on CXR BP: 125/69 HR: 83 Rhythm: A-Flutter Findings History: A. fib/A. flutter, HTN, HLD, DM, colon cancer, melanoma Technical Comments: The study is technically limited due to patient body habitus. Left Ventricle: The left ventricular chamber size is normal. Moderate concentric left ventricular hypertrophy is observed. Global left ventricular wall motion and contractility are within normal limits. Left ventricular systolic function is at the lower limits of normal. The estimated ejection fraction is 50-55%. The assessment of diastolic function is non-diagnostic. Left Atrium: The left atrium is mildly dilated. Right Ventricle: The right ventricle wall thickness is moderately increased. The right ventricular cavity size is normal. The right ventricular global systolic function is low normal. Right Atrium: The right atrium is not well visualized. The right atrium is slightly dilated. Aortic Valve: The aortic valve is trileaflet. The aortic valve leaflets are mildly thickened. There is aortic annular calcification. There is mild aortic regurgitation. There is no evidence of aortic stenosis. Mitral Valve: The mitral valve leaflets are mildly thickened. There is a trace of mitral regurgitation. There is no evidence of mitral stenosis. Tricuspid Valve: The tricuspid valve leaflets are normal. There is trace tricuspid regurgitation. Unable to estimate the right ventricular systolic pressure. There is no tricuspid stenosis. Pulmonic Valve: The pulmonic valve structure is not well visualized. There is no evidence of pulmonic regurgitation. There is no pulmonic stenosis. Pericardium: There is no significant pericardial effusion. A pericardial fat pad is visualized. Aorta: There is mild dilatation of the ascending aorta. There is no dilatation of the aortic arch. There is moderate dilatation of the aortic root. Pulmonary Artery: The main pulmonary artery is not well visualized. Venous: The inferior vena cava appears normal in size. There is less than 50% respiratory change in the inferior vena cava dimension. Summary: There are no significant changes when compared to the previous study done on 10/03/2017 Conclusions The left ventricular chamber size is normal. Moderate concentric left ventricular hypertrophy is observed. Left ventricular systolic function is at the lower limits of normal. The estimated ejection fraction is 50-55%. The assessment of diastolic function is non-diagnostic. The left atrium is mildly dilated. There is mild aortic regurgitation. There is a trace of mitral regurgitation. There is trace tricuspid regurgitation. Unable to estimate the right ventricular systolic pressure. There is no significant pericardial effusion. There is mild dilatation of the ascending aorta. There is moderate dilatation of the aortic root. Measurements Name Value Normal Range RVDdMajor (2D) 4.2 cm (2.2 - 4.4) RVAW (2D) 0.9 cm (0.2 - 0.5) RAd ISD 4CH 5.1 cm (3.4 - 4.9) RA (A4C)W 3.8 cm (2.9 - 4.6) IVSd (2D) 1.4 cm (0.6 - 1) LVPWd (2D) 1.4 cm (0.6 - 1) LVIDd (2D) 4.8 cm (3.6 - 5.4) Aortic Annulus 2.6 cm (1.4 - 2.6) Ao root diameter (2D) 4.2 cm (2.1 - 3.5) Ascending Ao 4 cm (2.1 - 3.4) Aortic arch 3.2 cm (1.8 - 3.4) LA dimension (AP) 2D 4.2 cm (2.3 - 3.8) LAd ISD 4CH 4.7 cm (2.9 - 5.3) LA ISD 4CH W 3.9 cm (2.5 - 4.5) Name Value Normal Range LA ESV SP 4CH (A/L) 58 ml - LA ESV SP 2CH (A/L) 46 ml - LA ESV BP (A/L) 55 ml - LA ESV BP (A/L) index 27 ml/m2 - LA ESV SP 4CH (MOD) 53 ml - LA ESV SP 2CH (MOD) 44 ml - Name Value Normal Range MV E-wave Vmax 1 m/sec - MV deceleration time 160 msec - LV septal e' Vmax 0.08 m/sec - LV lateral e' Vmax 0.12 m/sec - LV E:e' septal ratio 12.5 ratio - LV E:e' lateral ratio 8.3 ratio - Name Value Normal Range AV Vmax 1 m/sec - AV VTI 21.6 cm - AV peak gradient 4.4 mmHg - AV mean gradient 2.6 mmHg - LVOT Vmax 0.76 m/sec - LVOT VTI 15.5 cm - LVOT peak gradient 2.3 mmHg - LVOT mean gradient 1.2 mmHg - TATYANA Vmax 0.51 m/sec - Name Value Normal Range IVC diameter 1.8 cm - Name Value Normal Range PV Vmax 0.88 m/sec -
[2018-06-26] MEDS: CMCS:Fenofibrate(NF) 145 MG TAB PO SCH (17:27)
[2018-06-26] MEDS: Lisinopril TAB* 10 MG PO SCH (17:27)
[2018-06-26] MEDS: Diltiazem CD CAP* 180 MG PO SCH (17:27)
[2018-06-27] MEDS: Cefepime 1 GM in Dextrose(*) 1 GM/50 ML BAG IV SCH ×2 (00:35→14:38)
[2018-06-27] MEDS: Insulin LISPRO* 1 UNITS UNIT SUBCUT SCH ×6 (01:35→22:18)
[2018-06-27] MEDS: NS 0.9% 1000 ML* 1,000 ML IV SCH ×2 (04:46→19:56)
[2018-06-27] MEDS: Omeprazole CAP* 20 MG PO SCH (05:46)
[2018-06-27 07:21] LABS: ABS Basophils 0 10^3/ul (0-0.2); ABS Eosinophils 0.2 10^3/ul (0-0.6); ABS Lymphocytes 1.9 10^3/ul (1.0-4.8); ABS Neutrophils 5.7 10^3/ul (1.5-7.7); ABS Nucleated RBC 0 10^3/ul; Eosinophil % 2.2 % (0-6); Hematocrit 39 % (42-52); Hemoglobin 13.2 g/dl (14.0-18.0); Lymphocyte % 21.7 % (25-47); Mean Corpuscular HGB Conc 34 g/dl (31-36); Mean Corpuscular Hemoglobin 29 pg (27-31); Mean Corpuscular Volume 87 fL (80-94); Mean Platelet Volume 8.3 um3 (7.4-10.4); Nucleated Red Blood Cells % 0.1; Platelet Count 242 10^3/ul (150-450); Red Blood Count 4.52 10^6/ul (4.00-5.40); Red Cell Distribution Width 15 % (10.5-15); White Blood Count 8.8 10^3/ul (3.5-10.8)
[2018-06-27] MEDS ORDERED: Lidocaine 1% INJ* 10 MG/ML 30 ML SDV ONE (10:40)
[2018-06-27] MEDS ORDERED: Lidocaine 2% PF * 5 ML VIAL ONE (10:46)
--- NOTE | 2018-06-27 13:46 | OP ---
Operative Report - Blank - Operative Report Date of Operation: 06/27/18 Note: Brief Operative Note Preop Dx: Infected powerport Postop Dx: same Procedure: removal of powerport Anesthesia: local Surgeon: Bao Concrete Journeyman: none Fluids: EBL: < 25 ml Specimen: port tip and swab for C&S Drains: 1/2" iodoform packing Findings: dictated
[2018-06-27] MEDS ORDERED: HYDROcodone/ACETAMIN 5-325 MG* 1 TAB PO PRN ×2 (13:47)
--- NOTE | 2018-06-27 15:06 | PN ---
Progress Note - Progress Note Date of Service: 06/27/18 SOAP: Subjective: []Better, port just taken out. No fevers. Concerned about next treatment. Wants to go home. Acetaminophen (Tylenol Tab*) 650 mg PO Q6H PRN PRN Reason: FEVER/PAIN Hydrocodone Bitart/Acetaminophen ([place] 5-325 Tab*) 1 tab PO Q4H PRN PRN Reason: Moderate Pain Hydrocodone Bitart/Acetaminophen ([place] 5-325 Tab*) 2 tab PO Q4H PRN PRN Reason: Moderately Severe Pain Diltiazem HCl (Cardizem Cd Cap*) 180 mg PO QPM [facility] Last Admin: 06/26/18 17:27 Dose: 180 mg Docusate Sodium (Colace Cap*) 200 mg PO BID [facility] Last Admin: 06/26/18 21:31 Dose: 200 mg Fenofibrate (Tricor(Nf)) 145 mg PO QPM [facility]; Protocol Last Admin: 06/26/18 17:27 Dose: 145 mg Cefepime HCl (Maxipime 1 Gm In Dextrose Duplex (*)) 1 gm in 50 mls @ 100 mls/ hr IV Q12H [facility] Last Admin: 06/27/18 14:38 Dose: 100 mls/hr Sodium Chloride (Ns 0.9% 1000 Ml*) 1,000 mls @ 125 mls/hr IV PER RATE [facility] Last Admin: 06/27/18 04:46 Dose: 125 mls/hr Insulin Human Lispro (Humalog*) 0 units SUBCUT Q4H [facility]; Protocol Last Admin: 06/27/18 10:54 Dose: Not Given Lisinopril (Prinivil Tab*) 10 mg PO QPM [facility] Last Admin: 06/26/18 17:27 Dose: 10 mg Melatonin (Melatonin) 3 mg PO BEDTIME PRN; Protocol PRN Reason: Sleep Omeprazole (Prilosec Cap*) 20 mg PO DAILY@0600 [facility] Last Admin: 06/27/18 05:46 Dose: 20 mg Ondansetron HCl (Zofran Odt Tab*) 4 mg PO Q6H PRN PRN Reason: n/v Objective: [] Vital Signs Temp Pulse Resp BP Pulse Ox 97.9 F 71 17 147/88 97 06/27/18 13:45 06/27/18 13:48 06/27/18 08:05 06/27/18 13:48 06/27/18 13:48 HEENT - Healed scars from surgery CTA Chest well, excision and wound packed. Erythema. RRR S1S2, no murmur. +BS NT ND Ext - no edema Neuro - alert and oriented. skin - no emboli fingers or toes Microbiology 06/26/18 13:12 Blood Line Aerobic Blood Culture - Preliminary 06/26/18 13:12 Blood Line Anaerobic Blood Culture - Preliminary 06/26/18 06:17 Chest Skin and Soft Tissue MRSA/MSSA (PCR - Final Mrsa Negative S.aureus Positive 06/26/18 06:17 Chest Gram Stain - Final 06/26/18 06:17 Chest Wound Culture - Preliminary Staphylococcus Aureus Corynebacter Londonikeium (Grp Jk) 06/25/18 22:15 Blood Line Aerobic Blood Culture - Preliminary No Growth Day 1 06/25/18 22:15 Blood Line Anaerobic Blood Culture - Preliminary Staphylococcus Aureus 06/25/18 22:58 Blood Venous Aerobic Blood Culture - Preliminary Staphylococcus Aureus 06/25/18 22:58 Blood Venous Anaerobic Blood Culture - Preliminary No Growth Day 1 06/25/18 22:58 Blood Venous Blood MRSA/MSSA (PCR) - Final Mrsa Negative S.aureus Positive 06/26/18 06:49 Blood Venous Aerobic Blood Culture - Preliminary No Growth Day 1 06/26/18 06:49 Blood Venous Anaerobic Blood Culture - Preliminary No Growth Day 1 Assessment: []78 yo with locally advanced, melanoma IIIC s/p C1 Pembroluzimab (06/14) presenting last night with LCW port infection (placed 06/05). Now with port removed. Plan: []1. Port infection: - Plan 14 days antibiotics based on culture, change to Cefazolin 2 g q 8. - No evidence of endocarditis. 2. A.Fib and pericardial effusion: - echo stable - re-start apixaban tonight. - Follow rate. 3. Will plan Pembro C2 next week with peripheral IV 4. Discharge tomorrow with sensitivities 5. DM. Stable, FS qAC and qHS
[2018-06-27] MEDS: Docusate CAP* 100 MG PO SCH ×2 (16:05→22:10)
[2018-06-27] MEDS: Lisinopril TAB* 10 MG PO SCH (17:41)
[2018-06-27] MEDS: CMCS:Fenofibrate(NF) 145 MG TAB PO SCH (17:41)
[2018-06-27] MEDS: Diltiazem CD CAP* 180 MG PO SCH (17:41)
[2018-06-27] MEDS: ceFAZolin 2 GM PREMIX in ORs 2 GM/50 ML BAG IVPB SCH (22:11)
[2018-06-28] MEDS: ceFAZolin 2 GM PREMIX in ORs 2 GM/50 ML BAG IVPB SCH ×3 (03:17→20:27)
[2018-06-28] MEDS: NS 0.9% 1000 ML* 1,000 ML IV SCH ×3 (04:19→22:52)
[2018-06-28] MEDS: Omeprazole CAP* 20 MG PO SCH (05:13)
[2018-06-28 07:25] LABS: ABS Basophils 0.1 10^3/ul (0-0.2); ABS Eosinophils 0.2 10^3/ul (0-0.6); ABS Lymphocytes 1.5 10^3/ul (1.0-4.8); ABS Monocytes 0.7 10^3/ul (0-0.8); ABS Neutrophils 3.7 10^3/ul (1.5-7.7); ABS Nucleated RBC 0 10^3/ul; Eosinophil % 3.3 % (0-6); Hematocrit 40 % (42-52); Hemoglobin 13.5 g/dl (14.0-18.0); Lymphocyte % 24.8 % (25-47); Mean Corpuscular HGB Conc 34 g/dl (31-36); Mean Corpuscular Hemoglobin 29 pg (27-31); Mean Corpuscular Volume 86 fL (80-94); Mean Platelet Volume 7.6 um3 (7.4-10.4); Nucleated Red Blood Cells % 0.1; Platelet Count 256 10^3/ul (150-450); Red Blood Count 4.64 10^6/ul (4.00-5.40); Red Cell Distribution Width 15 % (10.5-15); White Blood Count 6.1 10^3/ul (3.5-10.8)
[2018-06-28] MEDS: Docusate CAP* 100 MG PO SCH ×2 (08:12→20:23)
[2018-06-28] MEDS: Insulin LISPRO* 1 UNITS UNIT SUBCUT SCH ×4 (08:14→20:37)
[2018-06-28] MEDS ORDERED: Vancomycin Trough Check NOTE FOLLOW UP ONE (08:30)
--- NOTE | 2018-06-28 09:14 | PN ---
Progress Note - Progress Note Date of Service: 06/28/18 Note: Surgery Progress: S: Denies pain r/t Left chest wound. O: Vital Signs - 8 hr 06/28/18 06/28/18 06/28/18 03:48 06:12 07:54 Temperature 98.4 F 98.6 F 98.7 F Pulse Rate 71 72 73 Respiratory 17 20 Rate Blood Pressure 121/65 131/72 121/70 (mmHg) O2 Sat by Pulse 97 99 97 Oximetry 06/28/18 08:32 Temperature Pulse Rate Respiratory 18 Rate Blood Pressure (mmHg) O2 Sat by Pulse Oximetry Left chest wound: less erythema; moderate serosang drainage on dsgs; no sig tenderness; packing left intact; dsgs (dry, sterile 4x4s) replaced. C&S: Staph aureus (kee-sens) A/P: s/p powerport removal for infected site, improving Likely home today on po abx (per hosp/[facility]). He has an appt w/ Dr. Hoang in the office 06/29 for followup.
--- NOTE | 2018-06-28 15:45 | CONS ---
CONSULTATION REPORT: DATE OF CONSULT: 06/28/18 REQUESTING PHYSICIAN: Dr. Espinal. CONSULTING SERVICE: Infectious Disease. REASON FOR CONSULT: Staph bacteremia. IMPRESSION: 1. Staphylococcal bacteremia due to left chest port infection with same. He has had his port removed. The initial blood cultures 3/4 were positive. Followup cultures on 06/26/18, 2/2 from the line were still positive, 2/2 peripheral are negative. He has no peripheral stigmata of infective endocarditis or any other distant focus of infection based on his signs or symptoms. He has no other prosthetic material present. 2. Stage IV melanoma, receiving immunomodulatory therapy. 3. History of colon cancer, status post hemicolectomy, January 2018. RECOMMENDATIONS: Agree with Ancef IV every 8 hours. He has had another set of blood cultures taken. As long as those followup cultures are negative, given he has no other peripheral stigmata of endocarditis and he had a transthoracic echocardiogram that was benign, he could complete 10 days of Ancef from the time of negative blood cultures. HISTORY OF PRESENT ILLNESS: This is a 78-year-old man undergoing immunomodulatory therapy via left chest port for melanoma. 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 He came to the hospital on the evening of 06/25/18. A chest x- ray showed no active disease. He was afebrile. He had a white count of 12,000. Blood cultures were taken, 3/4 positive for Staph aureus. There was impressive swelling and redness around the left port, which was removed on 06/27. On 06/26/18, a swab of drainage from the port was also growing Staph aureus as well as corynebacterium. The left chest pain and swelling is much improved. He is overall feeling better. He had another set of blood cultures taken yesterday, which are pending. He has no other prosthetic material present. He has no spine or joint pain. PAST MEDICAL HISTORY: 1. Colon cancer, status post partial colectomy, January 2018. 2. Stage IV melanoma, being treated with immunomodulatory therapy. 3. Type 2 diabetes. 4. Atrial fibrillation. 5. Hypertension. 6. Hypertriglyceridemia. 7. Left central retinal vein occlusion. 8. Right central retinal artery occlusion. 9. History of bladder stones. MEDICATIONS: 1. Tylenol. 2. Docusate 3. Diltiazem. 4. Fenofibrate. 5. Vicodin as needed. 6. Cefazolin 2 g IV every 8 hours. 7. Lisinopril. 8. Melatonin. 9. Omeprazole. ALLERGIES: No known drug allergies. 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 He lives with his . He is a nonsmoker. REVIEW OF SYSTEMS: All negative to 14-point review of systems except as noted above in history of present illness. PHYSICAL EXAM: Vital Signs: Temperature 37, heart rate 70, respiratory rate 18 , blood pressure 120/70, oxygen saturation 97% on room air. In general, he is awake, not in distress. Neurologic: He is oriented x3. Follows all commands. HEENT: There is no conjunctival hemorrhage. Oropharynx without lesions. Neck : Supple without mass. Heart: Regular rate and rhythm without murmurs. Lungs : Clear to auscultation bilaterally. Abdomen: Soft, nontender, and nondistended. There are bowel sounds present. Skin: There are no rashes or splinter hemorrhage. Musculoskeletal: There is no spine tenderness to palpation or joint synovitis. LABORATORY DATA: White blood cell count 6, hemoglobin 13, platelets 256. Creatinine is 1.1. Urinalysis was negative. Please see impression and recommendations outlined above, which I have discussed with Dr. Espinal. Thanks for asking me to see Mr. Kaur in consultation. [id number]/[facility] #: [id number] MTDD
--- NOTE | 2018-06-28 17:11 | PN ---
Progress Note - Progress Note Date of Service: 06/28/18 SOAP: Subjective: []Seen and examined this AM. Feeling very well and anxious to go home. Port site with packing was evaluated by surgical team this AM. No pain or tenderness. Medications: Acetaminophen (Tylenol Tab*) 650 mg PO Q6H PRN PRN Reason: FEVER/PAIN Hydrocodone Bitart/Acetaminophen ([place] 5-325 Tab*) 1 tab PO Q4H PRN PRN Reason: Moderate Pain Hydrocodone Bitart/Acetaminophen ([place] 5-325 Tab*) 2 tab PO Q4H PRN PRN Reason: Moderately Severe Pain Diltiazem HCl (Cardizem Cd Cap*) 180 mg PO QPM [facility] Last Admin: 06/27/18 17:41 Dose: 180 mg Docusate Sodium (Colace Cap*) 200 mg PO BID [facility] Last Admin: 06/28/18 08:12 Dose: Not Given Fenofibrate (Tricor(Nf)) 145 mg PO QPM [facility]; Protocol Last Admin: 06/27/18 17:41 Dose: 145 mg Sodium Chloride (Ns 0.9% 1000 Ml*) 1,000 mls @ 125 mls/hr IV PER RATE [facility] Last Admin: 06/28/18 14:29 Dose: 125 mls/hr Cefazolin Sodium/Dextrose (Kefzol 2 Gm Premix(*)) 2 gm in 50 mls @ 100 mls/hr IVPB Q8H [facility] Last Admin: 06/28/18 12:10 Dose: 100 mls/hr Insulin Human Lispro (Humalog*) 0 units SUBCUT ACHS [facility]; Protocol Last Admin: 06/28/18 12:04 Dose: Not Given Lisinopril (Prinivil Tab*) 10 mg PO QPM [facility] Last Admin: 06/27/18 17:41 Dose: 10 mg Melatonin (Melatonin) 3 mg PO BEDTIME PRN; Protocol PRN Reason: Sleep Omeprazole (Prilosec Cap*) 20 mg PO DAILY@0600 [facility] Last Admin: 06/28/18 05:13 Dose: 20 mg Ondansetron HCl (Zofran Odt Tab*) 4 mg PO Q6H PRN PRN Reason: n/v Objective: [] Vital Signs Temp Pulse Resp BP Pulse Ox 98.2 F 71 16 148/75 96 06/28/18 16:10 09/06/18 16:10 06/28/18 16:10 06/28/18 16:10 06/28/18 16:10 A&Ox3, EOMI, neuro grossly non-focal LCW port site with packing, minimal erythema, non-tender HRR, S1S2 LS clear bilat throughout Laboratory Results - last 24 hr 06/27/18 06/28/18 06/28/18 22:13 07:15 07:19 WBC 6.1 RBC 4.64 Hgb 13.5 L Hct 40 L MCV 86 MCH 29 MCHC 34 RDW 15 Plt Count 256 MPV 7.6 Neut % (Auto) 59.8 Lymph % (Auto) 24.8 L [place] % (Auto) 10.8 H Eos % (Auto) 3.3 Baso % (Auto) 1.3 Absolute Neuts (auto) 3.7 Absolute Lymphs (auto) 1.5 Absolute Monos (auto) 0.7 Absolute Eos (auto) 0.2 Absolute Basos (auto) 0.1 Absolute Nucleated RBC 0 Nucleated RBC % 0.1 POC Glucose (mg/dL) 131 H 103 H 06/28/18 06/28/18 11:30 16:49 WBC RBC Hgb Hct MCV MCH MCHC RDW Plt Count MPV Neut % (Auto) Lymph % (Auto) [place] % (Auto) Eos % (Auto) Baso % (Auto) Absolute Neuts (auto) Absolute Lymphs (auto) Absolute Monos (auto) Absolute Eos (auto) Absolute Basos (auto) Absolute Nucleated RBC Nucleated RBC % POC Glucose (mg/dL) 121 H 157 H Microbiology 06/27/18 13:47 Gram Stain - Final Chest Wound Culture - Preliminary Staphylococcus Aureus 06/26/18 06:17 Skin and Soft Tissue MRSA/MSSA (PCR - Final Chest Mrsa Negative S.aureus Positive Gram Stain - Final Wound Culture - Final Staphylococcus Aureus Corynebacter Jeikeium (Grp Jk) 06/26/18 13:12 Aerobic Blood Culture - Final Blood Line Staphylococcus Aureus Anaerobic Blood Culture - Final Staphylococcus Aureus 06/25/18 22:58 Aerobic Blood Culture - Final Blood Venous Staphylococcus Aureus Anaerobic Blood Culture - Final Staphylococcus Aureus Blood MRSA/MSSA (PCR) - Final Mrsa Negative S.aureus Positive 06/26/18 06:49 Aerobic Blood Culture - Preliminary Blood Venous No Growth Day 2 Anaerobic Blood Culture - Preliminary No Growth Day 2 06/25/18 22:15 Aerobic Blood Culture - Preliminary Blood Line No Growth Day 2 Anaerobic Blood Culture - Final Staphylococcus Aureus Assessment: []78 yo old male admitted with staph bacteremia 2/2 port infection now s/p removal and improving on Cefazolin. Plan: []1. Staph bacteremia: consult with ID, appreciate input - blood cultures drawn this AM, as long as negative will consider today day 1 of 10 - place PICC 2. Port site management per surgical team, suggest not placing another port until IV abx. completed and site fully healed (no longer needing packing) 3. Melanoma: cont. Pembroluzimab on schedule and will tx. with peripheral line ( or PICC if still in place) Dispo: home once cultures negative and plan for abx. in place
[2018-06-28] MEDS: Lisinopril TAB* 10 MG PO SCH (17:13)
[2018-06-28] MEDS: Diltiazem CD CAP* 180 MG PO SCH (17:13)
[2018-06-28] MEDS: CMCS:Fenofibrate(NF) 145 MG TAB PO SCH (17:13)
[2018-06-29] MEDS: ceFAZolin 2 GM PREMIX in ORs 2 GM/50 ML BAG IVPB SCH ×2 (04:07→12:22)
[2018-06-29] MEDS: Omeprazole CAP* 20 MG PO SCH (05:44)
[2018-06-29 08:06] LABS: ABS Basophils 0.1 10^3/ul (0-0.2); ABS Eosinophils 0.2 10^3/ul (0-0.6); ABS Lymphocytes 1.5 10^3/ul (1.0-4.8); ABS Monocytes 0.6 10^3/ul (0-0.8); ABS Neutrophils 2.6 10^3/ul (1.5-7.7); ABS Nucleated RBC 0 10^3/ul; Eosinophil % 4.3 % (0-6); Hematocrit 39 % (42-52); Hemoglobin 13.3 g/dl (14.0-18.0); Lymphocyte % 29.9 % (25-47); Mean Corpuscular HGB Conc 34 g/dl (31-36); Mean Corpuscular Hemoglobin 29 pg (27-31); Mean Corpuscular Volume 86 fL (80-94); Mean Platelet Volume 7.7 um3 (7.4-10.4); Nucleated Red Blood Cells % 0.1; Platelet Count 263 10^3/ul (150-450); Red Blood Count 4.59 10^6/ul (4.00-5.40); Red Cell Distribution Width 14 % (10.5-15)
[2018-06-29] MEDS: Insulin LISPRO* 1 UNITS UNIT SUBCUT SCH ×2 (08:29→12:23)
[2018-06-29] MEDS: Docusate CAP* 100 MG PO SCH (08:30)
[2018-06-29] MEDS: NS 0.9% 1000 ML* 1,000 ML IV SCH (10:49)
[2018-06-29 11:40] VITALS: BP 118/69
--- NOTE | 2018-06-29 12:47 | DS ---
- Discharge Summary Admission Date: 06/25/2018 Discharge Date: 06/29/2018 Discharge Diagnosis: 1. Staph Bacteriemia: present on admission, 2/2 port infection, s/p removal, resolving 2. Melanoma: resume Pembroluzimab as outpatient 3. A.Fib: has been in A.Flutter, rate controlled, cont. cardizem 4. DM: resume oral anti-diabetics Discharge Medications: Medication Instructions Recorded Confirmed Type Apixaban* [Eliquis*] 5 mg PO BID 10/17/17 06/25/18 History Fenofibrate(NF) [Tricor(NF)] 145 mg PO QPM 10/17/17 06/25/18 History Glimepiride [Amaryl] 4 mg PO QAM 10/17/17 06/25/18 History Lisinopril 10 mg PO QAM 10/17/17 06/25/18 History dilTIAZem HCl [Diltiazem 24Hr ER] 180 mg PO QPM 10/17/17 06/25/18 History metFORMIN* [Glucophage 500 MG TAB 500 mg PO BID 10/25/17 06/25/18 History *] Acetaminophen TAB* [Tylenol TAB*] 650 mg PO Q6H PRN tab 06/29/18 Rx Docusate CAP* [Colace Cap*] 200 mg PO BID PRN cap 06/29/18 Rx HYDROcodone/ACETAMIN 5-325 MG* 1 - 2 tab PO Q4H PRN tab 06/29/18 Rx [[place] 5-325 TAB*] Omeprazole CAP* [Prilosec CAP* 20 20 mg PO DAILY@0600 cap. 06/29/18 Rx MG] Ondansetron ODT TAB* [Zofran 4 MG 4 mg PO Q6H PRN tab 06/29/18 Rx Odt TAB*] IV Abx: Daptomycin 500 mg IV via PICC starting 06/30/18 to complete total of 10 days (06/30/18 = D3) Hospital Course: Please see admission note for full H&P, however, briefly, Mr. Kaur is well known to our service d/t his unfortunate diagnosis of advanced, unresectable, melanoma currently receiving Pembroluzimab, s/p C1. He had a port placed on due to planned assisted therapy without obvious complications. On 06/25 he presented to the ER after he developed redness, swelling, and discharge earlier in the day to the port site. The site was cultured and blood cultures were obtained. He was admitted for sepsis secondary to port site infection and started on Vanco and Cefepime. At the time he was started on a heparin drip d/ t his history of A.Fib, however the following day this was discontinued in planned for port removal. He was seen in consultation by Dr. Marquez for port removal on 06/26 at which time cultures revealed bacteremia consistent with stahp , MRSA negative; Vanco was at this time discontinued. Repeat cultures from a peripheral draw were negative, report port cultures were again positive for staph. His port was removed on 06/27 without obvious complications and the site was packed. On 06/28 Dr. Lorenz of infectious disease was consulted who agreed with current abx. An echo on 06/26 was negative and as Mr. Kaur does not have any prosthetic joints it was felt a full 10 days of IV antibiotics from day of negative cultures was appropriate. All positive culture sensitivies revealed MSSA, kee-sensitive. Two sets of cultures were obtained and today, 06/29 these were confirmed negative. He will be discharged home following a PICC placement with plan for daily Daptomycin starting tomorrow, 06/30, being D3 of 10. He will f/u with surgery for a dressing/packing change on 07/02 and will see oncology on 07/03 with plan to continue current therapy. Plan of care was reviewed at length with the patient with all questions answered. >40 min spent with >50% face to face counseling
--- NOTE | 2018-06-29 13:26 | PN ---
Progress Note - Progress Note Date of Service: 06/29/18 SOAP: Subjective: Pt seen and examined. requiring IV abx for bactermia. s/p port removal Objective: Temp Pulse Resp BP Pulse Ox 98.0 F 72 20 118/69 96 06/29/18 11:22 06/29/18 11:22 06/29/18 11:22 06/29/18 11:22 06/29/18 11:22 L upper chest- packing changed. purulent drainage is scant, wound irrigated, packed and dressed. upper closed incision wih intact staple line and mild redness Assessment: infected port Plan: abx wound care- q2-3 day packing change appointment made with me on Monday at [facility]
--- NOTE | 2018-06-29 16:17 | RAD ---
Indication: Confirm PICC placement for outpatient effusions. Cellulitis. Comparison: June 25, 2018 Technique: Upright AP 1555 hours Report: RIGHT upper extremity PICC line is looped at the level of the superior vena cava and extends into the LEFT brachiocephalic vein. The catheter is most conspicuous with the image adorno scale inverted. No focal pulmonary lesion, compelling alveolar consolidation, pleural effusion, pneumothorax. Cardiomegaly. Unremarkable central pulmonary vasculature and mediastinal contours. IMPRESSION: #. RIGHT upper extremity PICC line is looped at the level of the superior vena cava and extends into the LEFT brachiocephalic vein. The catheter should be repositioned
[2018-06-29] MEDS ORDERED: ceFAZolin* 2 GM in NS 100 MLS Q8HR IVPB SCH (20:00)
== END 2018-06-29 17:00 | disposition home or self-care (01) | DRG 314 ==
LOC: ED 20:42 → MED 06-26 00:47
PROVIDERS: ADMIT Hospitalist; ATTEND Internal Medicine Hematology & Oncology
PROC: 0JPT3WZ Removal of Totally Implantable Vascular Access Device from Trunk Subcutaneous Tissue and Fascia, Percutaneous Approach (ICD-10-PCS; principal; 2018-06-27 15:45)
PROC: 02HV33Z Insertion of Infusion Device into Superior Vena Cava, Percutaneous Approach (ICD-10-PCS; 2018-06-29)
DX: T80.218A Other infection due to central venous catheter, initial encounter (principal); A41.2 Sepsis due to unspecified staphylococcus; H34.11 Central retinal artery occlusion, right eye; H34.8122 Central retinal vein occlusion, left eye, stable; L03.313 Cellulitis of chest wall; I31.3 Pericardial effusion (noninflammatory); Y82.8 Other medical devices associated with adverse incidents; C43.30 Malignant melanoma of unspecified part of face; E78.1 Pure hyperglyceridemia; H54.8 Legal blindness, as defined in USA; I10 Essential (primary) hypertension; E66.9 Obesity, unspecified; I48.91 Unspecified atrial fibrillation; E78.00 Pure hypercholesterolemia, unspecified; K21.9 Gastro-esophageal reflux disease without esophagitis; M19.042 Primary osteoarthritis, left hand; M19.041 Primary osteoarthritis, right hand; E11.36 Type 2 diabetes mellitus with diabetic cataract; M17.0 Bilateral primary osteoarthritis of knee; H91.90 Unspecified hearing loss, unspecified ear; Z97.4 Presence of external hearing-aid; Z85.038 Personal history of other malignant neoplasm of large intestine; Y92.009 Unspecified place in unspecified non-institutional (private) residence as the place of occurrence of the external cause; Z68.33 Body mass index [BMI] 33.0-33.9, adult; Z87.442 Personal history of urinary calculi; Z90.49 Acquired absence of other specified parts of digestive tract; Z98.41 Cataract extraction status, right eye; Z87.891 Personal history of nicotine dependence; Z79.01 Long term (current) use of anticoagulants; Z79.84 Long term (current) use of oral hypoglycemic drugs
CPT/HCPCS: 36415; 71045; 80048; 80053; 81003; 83036; 83605; 85025; 85610; 85730; 86140; 87040; 87070; 87071; 87077; 87102; 87150; 87186; 87205; 87640; 87641; 93005; 93306; 99232; 99233; 99284; A9270-GY; J0690; J0692; J1642; J3370

== ENCOUNTER 2019-05-19 15:40 | Emergency (ER) | payer MEDICARE, OTHER ==
[2019-05-19] MEDS ORDERED: Lactated Ringers 1000 ML Bag* 1,000 ML IV.FLUID IV ONE (15:51)
[2019-05-19] MEDS ORDERED: Piperacillin/Tazobac ADVAN(*) 3.375 GM in NS 0.9% 100 ML* 100 ML IVPB ONE (15:51)
[2019-05-19] MEDS ORDERED: Vancomycin(*) 1,000 MG VIAL IVPB SCH (16:00)
--- NOTE | 2019-05-19 16:07 | ED ---
Abdominal Pain/Male - HPI Summary HPI Summary: LEVEL 5 CAVEAT due to patient being confused and unable to provide a full hx. The pt is a 79 yr old male presenting to [facility] c/o diffuse right-sided abd pain beginning last night with worsening AMS. According to his son, the pt had an upset stomach one week ago and was given abx to take for possible gallstone attack 4 days ago. After the visit he returned home and was feeling better. However, last night his condition rapidly worsened and he felt much worse. The pt states that all of the pain is on the right side of his abd and that he has had this pain for approximately a week. His son reports that the pt has been vomiting intermittently and has a fever. Hx of Afib, DM (Metformin), metastatic melanoma with monthly infusions by Dr. Espinal, oncology. - History of Current Complaint Chief Complaint: EDShortnessOfBreath Stated Complaint: VOMITING/TEMP OF 94 PER FAMILY Time Seen by Provider: 05/19/19 15:50 Hx Obtained From: Family/Learning Support Resource Room Teacher - Son and mother Hx From Patient Unobtainable Due To: Other - Pt is confused and unable to give full history. Level 5 caveat. Onset/Duration: Lasting Days, Still Present, Worse Since - last night Timing: Lasting Days Severity Initially: Moderate Severity Currently: Moderate Pain Scale Used: 0-10 Numeric Location: Diffuse - across right-sided, worse in RUQ Aggravating Factor(s): Nothing Alleviating Factor(s): Nothing Associated Signs And Symptoms: Positive: Fever, Nausea, Vomiting, Other - Positive - Abd pain - Allergies/Home Medications Allergies/Adverse Reactions: Allergies Allergy/AdvReac Type Severity Reaction Status Date / Time No Known Allergies Allergy Verified 05/19/19 17:58 Home Medications: Home Medications Amoxicillin/Clavulanate TAB* [Augmentin TAB 875*] 875 mg PO BID 05/19/19 [ History Confirmed 05/19/19] PMH/Surg Hx/FS Hx/Imm Hx Endocrine/Hematology History: Reports: Hx Diabetes - on medcaition Denies: Hx Thyroid Disease Cardiovascular History: Reports: Hx Hypercholesterolemia, Hx Hypertension - CONTROLED W/RX, Hx Valvular Heart Disease, Other Cardiovascular Problems/ Disorders - Atrial Fibrillation-on Eliquis Denies: Hx Angina, Hx Coronary Artery Disease, Hx Myocardial Infarction, Hx Pacemaker/ICD Respiratory History: Denies: Hx Asthma, Hx Chronic Obstructive Pulmonary Disease (COPD), Other Respiratory Problems/Disorders GI History: Reports: Hx Gastroesophageal Reflux Disease - history of, after colon surgery 02/07-none recent, Hx Hiatal Hernia, Other GI Disorders - Colon [id number] Denies: Hx Ulcer History: Reports: Hx Kidney Stones, Hx Renal Disease - abnormal gfr, Other Problems/Disorders - BLADDER STONES approx 40 years ago Denies: Hx Dialysis Musculoskeletal History: Reports: Hx Arthritis - HANDS, KNEES Denies: Other Musculoskeletal History Sensory History: Reports: Hx Cataracts, Hx Contacts or Glasses - Glasses, Hx Hearing Aid - Bilateral hearing aids Opthamlomology History: Reports: Hx Cataracts, Hx Contacts or Glasses - Glasses Neurological History: Denies: Other Neuro Impairments/Disorders Psychiatric History: Denies: Hx Panic Disorder - Cancer History Cancer Type, Location and Year: SKIN MELANOMA, colon cancer - Surgical History Surgery Procedure, Year, and Place: Bladder stones removed approx 40 years ago. PILONIDAL CYST REMOVED. Colon resection 02/07 colon cancer. Malignant melanoma removed from face x2 Hx Anesthesia Reactions: No Infectious Disease History: Denies: Hx Hepatitis, Hx Human Immunodeficiency Virus (HIV), History Other Infectious Disease, Traveled Outside the [place] in Last 30 Days - Family History Known Family History: Negative: Hypertension - Social History Alcohol Use: None Hx Substance Use: No Substance Use Type: Reports: None Hx Tobacco Use: Yes Smoking Status (MU): Former Smoker Amount Used/How Often: 2 YEARS while in college Have You Smoked in the Last Year: No Review of Systems Positive: Fever Positive: Abdominal Pain, Vomiting, Nausea All Other Systems Reviewed And Are Negative: No - Comments Additional Review of Systems Comments: Level 5 Caveat, secondary to confusion. Physical Exam - Summary Physical Exam Summary: Constitutional: Ill-appearing, elderly male. Skin: Warm, Dry HENT: Normocephalic; Atraumatic, Dry mucous membranes. Eyes: Conjunctiva normal Neck: Musculoskeletal ROM normal neck. (-) JVD, (-) Stridor, (-) Nuchal rigidity Cardio: Tachycardic, Heart sounds normal; Intact distal pulses; Radial pulses are 2+ and symmetric. (-) Murmur. Pulmonary/Chest wall: Increased work of breathing, bilateral rhonchi,(-) Wheezes , (-) Rales Abd: Soft, +UQ pain, (-) Distension, (-) Guarding, (-) Rebound Musculoskeletal: (-) Edema Lymph: (-) Cervical adenopathy Neuro: Alert, Oriented to person but not place or time. GCS = 14 (see scale). Psych: deferred Triage Information Reviewed: Yes Vital Signs On Initial Exam: Initial Vitals Temp Pulse Resp 103.5 F 146 36 05/19/19 15:53 05/19/19 15:53 05/19/19 15:53 Vital Signs Reviewed: Yes Completion Of Physical Exam Limited Due To: Level 5 - [place] Coma Scale Best Eye Response: 4 - Spontaneous Best Motor Response: 6 - Obeys Commands Best Verbal Response: 4 - Confused Coma Scale Total: 14 Diagnostics - Vital Signs Vital Signs Temp Pulse Resp 05/19/19 15:53 103.5 F 146 36 - Laboratory Result Diagrams: 05/19/19 16:00 05/19/19 16:00 Lab Statement: Any lab studies that have been ordered have been reviewed, and results considered in the medical decision making process. - Radiology CXR Radiology Interpretation Completed By: Radiologist Summary of Radiographic Findings: Impressions: No radiographic evidence for acute cardiopulmonary abnormality on this portable CXR. ED physician has reviewed this report. - CT Brain CT CT Interpretation Completed By: Radiologist Summary of CT Findings: IMPRESSION: Stable age-appropriate degenerative changes similar to the October 17, 2017 CT of the brain. ED physician has reviewed this report. CXR CT Interpretation Completed By: Radiologist Summary of CT Findings: Impressions: No radiographic evidence for acute cardiopulmonary abnormality on this portable CXR. - Ultrasound Gallbladder US Ultrasound Interpretation Completed By: Radiologist Summary of Ultrasound Findings: IMPRESSION: 1. CHOLELITHIASIS AND BILIARY SLUDGE WITHOUT SONOGRAPHIC EVIDENCE OF BILIARY OBSTRUCTION. OR ACUTE INFLAMMATORY CHANGE. 2. THE MINIMALLY ECHOGENIC AVASCULAR STRUCTURE IN THE HEAD OF THE PANCREAS MEASURING 2.8. CM IN GREATEST DIMENSION CORRESPONDS TO A CYSTIC LESION SEEN IN THE SIMILAR PLACE ON THE. MAY 16, 2019 CT OF THE ABDOMEN AND PELVIS. ED physician has reviewed this report. - EKG 1710 Cardiac Rate: Other Rate - Atrial flutter. 136 BPM. EKG Rhythm: Atrial Flutter - 2:1 AV Bloc EKG Comparison: No Significant Change - from 09/2017 Summary of EKG Findings: Atrial flutter with 2:1 AV block, RBBB, inferior infarct, age indeterminate. No STEMI. Re-Evaluation - Re-Evaluation First Eval Re-Evaluation Time: 16:29 Comment: Discussed lab results with pt's family. Concern for ascending cholangitis. Patient is critically ill and family aware. His elevated lactic acid and LFTs along with an elevated bilirubin are very concerning. We'll discuss with radiology findings once imaging is back Second Eval Re-Evaluation Time: 18:30 Comment: I discussed plan for transfer of the patient to [facility]. We do not have a pearl stringer available here in the emergency department and who can do an ERCP and a timely fashion. Patient's family aware of possible transfer. Abdominal Pain Male Course/Dx - Course Course Of Treatment: 75-year-old male history of metastatic melanoma to the abdomen as well as recent diagnosis of gallstones presents with fever, vomiting , and altered mental status. Emergency Department patient is tachycardic to 140s, febrile to 103. Concern for infection. Suspected source of infection. Concern for ascending cholangitis given recent diagnosis of gallstones with altered mental status, fever and abdominal pain. Will check CT brain given altered mental status however suspect secondary to fever and ongoing infectious process. Plan for ultrasound of right upper quadrant as well as CT brain for altered mental status. . Plan. Initiated the inpatient sepsis 3 hour provider orderset. IV fluid bolus (30 mL/kg). serum lactate. blood cultures x 2. broad spectrum antibiotics (vanc/zosyn) - Diagnoses Provider Diagnoses: Ascending cholangitis - Provider Notifications Discussed Care Of Patient With: Ruben Ash - surgery Time Discussed With Above Provider: 17:38 Instructed by Provider To: Other - [address] Ash. He recommends no surgical intervention and to follow up with [facility] and hospitalist. [address] Siu GI, who recommends pt transfer since he is unable to perform the ERCP. I spoke with the transfer center concerning patients case at 1822. Patient is accepted for ICU transfer to [facility] by Dr. Goncalves. - Critical Care Time Critical Care Time: 30-74 min - 60 minutes Discharge - Sign-Out/Discharge Documenting (check all that apply): Patient Departure - Transfer to [facility] by Dr. Goncalves. Patient Received Moderate/Deep Sedation with Procedure: No - Discharge Plan Condition: Stable Disposition: TRANS HIGHER [facility] CARE FAC Referrals: Trevon Nieves MD [Primary Care Provider] - - Billing Disposition and Condition Condition: STABLE Disposition: Trans Higher Lvl of Care Fac - Attestation Statements Document Initiated by Lillianaibe: Yes Documenting Scribe: Asher Sow Provider For Whom Mike is Documenting (Include Credential): Dr. Kiana Gutierrez Scribe Attestation: I, Asher Sow, scribed for Dr. Kiana Gutierrez on 05/19/19 at 1845. Scribe Documentation Reviewed: Yes Provider Attestation: The documentation as recorded by the lillianaibeAsher accurately reflects the service I personally performed and the decisions made by me, Dr. Kiana Gutierrez Status of Scribe Document: Viewed
[2019-05-19] MEDS ORDERED: Ondansetron INJ* 2 MG/ML VIAL ONE (16:08)
[2019-05-19] MEDS ORDERED: Ondansetron INJ* 2 MG/ML VIAL IV ONE (16:08)
[2019-05-19] MEDS ORDERED: Acetaminophen TAB* 325 MG PO ONE (16:08)
[2019-05-19] MEDS ORDERED: NS 0.9% 500 ML* 500 ML ONE (16:14)
[2019-05-19 16:24] LABS: ABS Basophils 0.1 10^3/ul (0-0.2); ABS Lymphocytes 0.6 10^3/ul (1.0-4.8); ABS Monocytes 0.1 10^3/ul (0-0.8); ABS Neutrophils 13.2 10^3/ul (1.5-7.7); Hematocrit 44 % (42-52); Hemoglobin 14.7 g/dL (14.0-18.0); Mean Corpuscular HGB Conc 34 g/dL (31-36); Mean Corpuscular Hemoglobin 30 pg (27-31); Mean Corpuscular Volume 89 fL (80-94); Mean Platelet Volume 8.1 fL (7.4-10.4); Platelet Count 379 10^3/uL (150-450); Red Blood Count 4.92 10^6 /uL (4.18-5.48); Red Cell Distribution Width 15 % (10-15); White Blood Count 13.8 10^3/uL (3.5-10.8)
[2019-05-19 16:32] LABS: Activated Partial Thrombo Time 32.4 seconds (26.0-38.0); INR 1.66 (0.82-1.09)
[2019-05-19 16:37] LABS: ALT 138 U/L (7-52); AST 207 U/L (13-39); Albumin 3.3 g/dL (3.2-5.2); Albumin/Globulin Ratio 0.8 (1-3); Alkaline Phosphatase 390 U/L (34-104); Anion Gap 19 mmol/L (2-11); BUN/Creatinine Ratio 11.6 (8-20); Blood Urea Nitrogen 17 mg/dL (6-24); CO2 Carbon Dioxide 21 mmol/L (22-32); Chloride 94 mmol/L (101-111); EGFR African American 56.2 (>60); EGFR Non-African American 46.5 (>60); Globulin 3.9 g/dL (2-4); Glucose 261 mg/dL (70-100); Potassium 4.2 mmol/L (3.5-5.0); Sodium 134 mmol/L (135-145); Total Protein 7.2 g/dL (6.4-8.9)
[2019-05-19 16:40] LABS: Troponin I 0.05 ng/mL (<0.04)
[2019-05-19] MEDS ORDERED: Vancomycin(*) 1,750 MG in NS 0.9% 500 ML* 500 ML IVPB ONE (17:00)
[2019-05-19 18:31] LABS: Urine Appearance Cloudy; Urine Bacteria Absent (Absent); Urine Bilirubin 1+ (Negative); Urine Blood 1+ (Negative); Urine Color Amber; Urine Glucose 2+(150 mg/dL) (Negative); Urine Ketones Negative (Negative); Urine Nitrite Negative (Negative); Urine Protein Negative (Negative); Urine Red Blood Cell 2+(6-10/hpf) (Absent); Urine Specific Gravity 1.018 (1.010-1.030); Urine Squamous Epithelial Cell Present (Absent); Urine Urobilinogen Positive (Negative); Urine White Blood Cell Trace(0-5/hpf) (Absent)
[2019-05-19 19:08] VITALS: BP 95/64
--- NOTE | 2019-05-20 06:15 | PN ---
Progress Note - Progress Note Date of Service: 05/19/19 Note: 01/24 blood cultures growing gram negative bacilli on preliminary report. Pt. was transferred to [facility] for ascending cholangitis. No change in treatment needed at this time.
== END 2019-05-19 18:56 | disposition short-term general hospital (02) ==
LOC: ED 15:40
DX: K83.09 Other cholangitis (principal); I44.30 Unspecified atrioventricular block; I45.10 Unspecified right bundle-branch block; R50.9 Fever, unspecified; R41.82 Altered mental status, unspecified; E11.9 Type 2 diabetes mellitus without complications; Z79.84 Long term (current) use of oral hypoglycemic drugs; E78.00 Pure hypercholesterolemia, unspecified; I10 Essential (primary) hypertension; I48.91 Unspecified atrial fibrillation; Z79.01 Long term (current) use of anticoagulants; Z87.442 Personal history of urinary calculi; Z85.828 Personal history of other malignant neoplasm of skin; Z85.038 Personal history of other malignant neoplasm of large intestine; Z87.891 Personal history of nicotine dependence
CPT/HCPCS: 36415; 70450; 71045; 76705; 80053; 81003; 81015; 83605; 84484; 85025; 85610; 85730; 87040; 87077; 87086; 87186; 87205; 93005; 96361; 96365; 96366; 96375; 99285; A9270-GY; J2405; J2543; J3370

== ENCOUNTER → 2019-07-26 06:48 | Day surgery (SDC) | payer MEDICARE, OTHER ==
[~2019-07-26 06:48] MED LIST changes: +Acetaminophen IV 1GM/100ML * 1,000 MG/100 ML VIAL IVPB ONE; +Acetaminophen IV 1GM/100ML * 100 ML ONE; -Buffered Lidocaine 0.9% SYRIN* 5 ML/SYR SYRINGE INTRADERM ONE; +Buffered Lidocaine 1% SYRIN* 1 ML/SYRINGE INTRADERM ONE; +Bupivacaine 0.25% EPI 200,000* 30 ML SDV ONE; +DiMENhydriNATE IV* 50 MG/ML VIAL IV PUSH PRN; -Famotidine IV* 10 MG/ML 2 ML (20 mg) IV ONE; +Glycopyrrolate IV* 0.2 MG/ML 1 ML VIAL ONE; +Ketorolac INJ* 30 MG/ML 1 ML VIAL ONE; +Labetalol IV* 5 MG/ML 20 ML VIAL ONE; +Lactated Ringers 1000 ML Bag* 1,000 ML IV SCH; +Lidocaine 2% PF * 5 ML VIAL ONE; +Naloxone* 0.4 MG/ML 1 ML VIAL IV PRN; +Neostigmine Methylsulfate* 3 MG/3 ML SYRINGE ONE; +Propofol* 10 MG/ML 20 ML BTL ONE; +Rocuronium* 10 MG/ML VIAL ONE; +Sodium Citrate/Citric Acid* 15 ML UDC ONE; +Sodium Citrate/Citric Acid* 15 ML UDC PO ONE; +ceFAZolin 2 GM in NS PREMIX(*) 2 GM/100 ML BAG IVPB ONE; +fentaNYL* 50 MCG/ML 2 ML VIAL (100 MCG VIAL) ONE
--- NOTE | 2019-07-26 10:04 | BRIEFOPN ---
Brief Operative/Procedure Note - Operation Details Pre-Op Diagnosis: symptomatic cholelithiasis Post-Op Diagnosis: same Procedures: lap cholecystectomy Surgeon(s)/Proceduralists: Viktor. assist: Donte Anesthesia: HAO Mcmahon Estimated Blood Loss: 20mL Findings: chronic cholecystitis Specimen(s)/Culture(s) Description: gallbladder Complications: None
[2019-07-26] MEDS: fentaNYL* 50 MCG/ML 2 ML VIAL (100 MCG VIAL) IV PRN ×2 (10:12→10:35)
[2019-07-26 11:28] VITALS: BP 128/72
--- NOTE | 2019-07-30 22:15 | OP ---
CC: Trevon Nieves MD * DATE OF OPERATION: 07/26/19 - SDS DATE OF : 44 SURGEON: Michoacano Hoang MD HEDIS REVIEW NURSE: Dr. Kent. ANESTHESIA: General endotracheal. PRE-OP DIAGNOSES: Symptomatic gallstones, chronic cholecystitis. POST-OP DIAGNOSES: Symptomatic gallstones, chronic cholecystitis. OPERATIVE PROCEDURE: Laparoscopic cholecystectomy. ESTIMATED BLOOD LOSS: Minimal. IV FLUIDS: Crystalloids. SPECIMENS: Gallbladder contents. DRAINS: None. COMPLICATIONS: None. COUNTS: Instrument, needle, and sponge count correct. DESCRIPTION OF PROCEDURE: The patient was brought to the operating room and placed on the table supine. Sequential compression devices were placed on both lower extremities. General anesthesia was administered. The abdomen was prepped and draped in the usual sterile fashion. He received appropriate intravenous antibiotics. After a time-out was performed, local anesthetic was infiltrated into the skin and soft tissue in the supraumbilical region in the area of a prior scar. Open technique was used to access the peritoneal cavity and a 12-mm trocar was placed. Carbon dioxide was insufflated to a pressure of 15 mmHg. Under direct visualization, 5-mm trocars were placed in the subxiphoid position and 2 in the right upper quadrant. The gallbladder appeared to be chronically inflamed. It was grasped with a fundus and retracted cephalad. Infundibulum was identified, there was a fair amount of fat that was investing the gallbladder and the peritoneum, and the fat were dissected free using a combination of cautery and sharp and blunt dissection. After dissecting out the cystic artery, the cystic duct was identified. There was a fair amount of inflammation related to this, so the dissection favored to stay towards the infundibulum side. Once critical view was obtained, the structures were doubly clipped and divided. The gallbladder was freed from attachments to the liver staying in an avascular plane and then the gallbladder placed into an endoscopic retrieval bag, was retrieved through the supraumbilical site. The clips on the cystic duct side were reinforced by placing a 2-0 Vicryl Surgitie over this. Subsequently, hemostasis was assured. Ports were removed under direct visualization, carbon dioxide was released. The umbilical wound was closed with 0-Vicryl in a figure- of-eight fashion to approximate the fascia. Skin incisions were closed with 4- 0 Monocryl in a subcuticular fashion. Steri-Strips were applied. The patient tolerated the procedure well and was extubated and transferred to the recovery room in stable condition. [id number]/[facility] #: [id number] [facility] CENTERChinyere
== END | disposition home or self-care (01) ==
LOC: OR 06:48
PROVIDERS: ATTEND Surgery
DX: K80.10 Calculus of gallbladder with chronic cholecystitis without obstruction (principal); Z87.891 Personal history of nicotine dependence; E11.9 Type 2 diabetes mellitus without complications; Z79.84 Long term (current) use of oral hypoglycemic drugs; I48.91 Unspecified atrial fibrillation; Z79.01 Long term (current) use of anticoagulants; Z85.038 Personal history of other malignant neoplasm of large intestine; Z85.820 Personal history of malignant melanoma of skin; Z86.73 Personal history of transient ischemic attack (TIA), and cerebral infarction without residual deficits
CPT/HCPCS: 88304; A9270-GY; J0690; J1885; J2704; J2710; J3010

== ENCOUNTER 2019-12-05 07:43 | Day surgery (SDC) | payer MEDICARE, OTHER ==
[~2019-12-05 07:43] MED LIST changes: -Acetaminophen IV 1GM/100ML * 1,000 MG/100 ML VIAL IVPB ONE; -Acetaminophen IV 1GM/100ML * 100 ML ONE; -Bupivacaine 0.25% EPI 200,000* 30 ML SDV ONE; +DiMENhydriNATE IV* 50 MG/ML VIAL IV PUSH ONE; -DiMENhydriNATE IV* 50 MG/ML VIAL IV PUSH PRN; +Famotidine IV* 10 MG/ML 2 ML (20 mg) IV ONE; -Glycopyrrolate IV* 0.2 MG/ML 1 ML VIAL ONE; +HYDROmorphone INJ1* 1 MG/ML SYRINGE IV PRN; -Ketorolac INJ* 30 MG/ML 1 ML VIAL ONE; -Labetalol IV* 5 MG/ML 20 ML VIAL ONE; +Levalbuterol 0.63MG/3ML NEB* UNIT OF USE INH ONE; +Levalbuterol 0.63MG/3ML NEB* UNIT OF USE INH PRN; -Lidocaine 2% PF * 5 ML VIAL ONE; -Neostigmine Methylsulfate* 3 MG/3 ML SYRINGE ONE; +Ondansetron ODT TAB* 4 MG PO ONE; +PROCHLORPERAZINE INJ 5 MG/ML 2 ML VIAL IV PRN; -Propofol* 10 MG/ML 20 ML BTL ONE; -Rocuronium* 10 MG/ML VIAL ONE; -Sodium Citrate/Citric Acid* 15 ML UDC ONE; -Sodium Citrate/Citric Acid* 15 ML UDC PO ONE; -ceFAZolin 2 GM in NS PREMIX(*) 2 GM/100 ML BAG IVPB ONE; -fentaNYL* 50 MCG/ML 2 ML VIAL (100 MCG VIAL) ONE; +oxyCODONE TAB* 5 MG TAB PO PRN
[2019-12-05] MEDS ORDERED: DiMENhydriNATE IV* 50 MG/ML VIAL ONE (08:15)
[2019-12-05] MEDS ORDERED: Ondansetron ODT TAB* 4 MG ONE (08:15)
[2019-12-05] MEDS ORDERED: Famotidine IV* 10 MG/ML 2 ML (20 mg) ONE (08:15)
[2019-12-05] MEDS ORDERED: Levalbuterol 0.63MG/3ML NEB* UNIT OF USE INH ONE (08:15)
[2019-12-05] MEDS ORDERED: Benzocaine/Butamben/Tetracain (CETACAINE - SINGLE USE) 5 gm TOPICAL ONE (09:13)
[2019-12-05] MEDS ORDERED: Midazolam* 1 MG/ML 5 ML VIAL (5 MG) ONE (09:17)
[2019-12-05] MEDS ORDERED: fentaNYL* 50 MCG/ML 2 ML VIAL (100 MCG VIAL) ONE ×2 (09:17→12:04)
[2019-12-05] MEDS ORDERED: KETAMINE HCL* 50 MG/ML 10 ML VIAL ONE (09:17)
[2019-12-05] MEDS ORDERED: Rocuronium* 10 MG/ML VIAL ONE (09:18)
[2019-12-05] MEDS ORDERED: Lidocaine 2% PF * 5 ML VIAL ONE (10:15)
[2019-12-05] MEDS ORDERED: Phenylephrine 40 MCG/ML SYRINGE ONE (10:15)
[2019-12-05] MEDS ORDERED: Sugammadex * 200 MG/2 ML VIAL IV PUSH ONE (10:15)
[2019-12-05] MEDS ORDERED: Propofol* 10 MG/ML 20 ML BTL ONE (10:15)
[2019-12-05] MEDS ORDERED: hydrALAZINE IV* 20 MG/ML VIAL ONE (11:12)
--- NOTE | 2019-12-05 12:02 | BRIEFOPN ---
Brief Operative/Procedure Note - Operation Details Pre-Op Diagnosis: Left hilar lesion, PET positive Post-Op Diagnosis: Non-diagnostic Procedures: Bronchoscopy/EBUS with FNA of station 7, L10 and endobronchial biopsy from LLL bronchus Surgeon(s)/Proceduralists: faisal Vitale Anesthesia: GA- Dr Perry Estimated Blood Loss: Negligable Findings: Mucosal irregulairity in LLL bronchus medial segment. Station-7, L10 negative for metastatic disease Specimen(s)/Culture(s) Description: FNA from station7,L10/lt hilar area. Endobronchial biopsies from mucosal lesion in LLL medial segment Complications: None
[2019-12-05] MEDS: fentaNYL* 50 MCG/ML 2 ML VIAL (100 MCG VIAL) IV PRN ×2 (12:04→12:07)
[2019-12-05 12:48] VITALS: BP 103/60
--- NOTE | 2019-12-05 21:00 | PRO ---
BRONCHOSCOPY REPORT: DATE OF PROCEDURE: 12/05/19 - [facility] PROCEDURE PERFORMED: Bronchoscopy with endobronchial ultrasound guided fine needle aspiration of mediastinal and hilar nodes and endobronchial biopsy. PREPROCEDURAL DIAGNOSIS: PET positive left hilar mass. POSTPROCEDURAL DIAGNOSIS: ANESTHESIA: General anesthesia. ANESTHESIOLOGIST: Dr. Phipps. DESCRIPTION OF PROCEDURE: Informed consent was obtained from the patient prior to the procedure after all the risks and benefits were thoroughly explained. Appropriate time-out was performed and agreed on by the attending staff prior to the procedure. A flexible Olympus bronchoscope was inserted through ET tube for airway inspection. No lesions were noted on the right side. The patient noted to have some narrowing and mucosal irregularity in the left lower lobe bronchus medial segment. Bronchoscope was then withdrawn and EBUS bronchoscope was inserted. The patient's 7 was enlarged, was sampled with 2 passes. Rapid on-site evaluation of the lymphatic tissue with no malignant cells. R4 and L4 were not enlarged. L10 was minimally enlarged and was sampled with 2 passes. Sampling was also done near the left hilar area where the mucosal irregularity was noted. Rapid on-site evaluation did not reveal any suspicious cells. Bronchoscope was then withdrawn and Olympus bronchoscope was reinserted and endobronchial biopsies were obtained from the left lower lobe bronchus near the mucosal lesions. Bronchoscope was then withdrawn, no significant bleeding was noted. The patient tolerated the procedure well. The patient was seen in Recovery in optimal condition. [id number]/[facility] #: [id number] [facility]
== END 2019-12-05 13:21 | disposition home or self-care (01) ==
LOC: OR 07:43
PROVIDERS: ATTEND Internal Medicine
DX: J98.4 Other disorders of lung (principal); I10 Essential (primary) hypertension; E78.5 Hyperlipidemia, unspecified; I48.91 Unspecified atrial fibrillation; Z79.01 Long term (current) use of anticoagulants; E11.9 Type 2 diabetes mellitus without complications; Z79.84 Long term (current) use of oral hypoglycemic drugs; Z85.820 Personal history of malignant melanoma of skin; Z85.038 Personal history of other malignant neoplasm of large intestine
CPT/HCPCS: 88172; 88173; 88177; 88305; A9270-GY; J0360; J1240; J2250; J2704; J3010

== ENCOUNTER 2019-12-17 09:19 | Observation (INO) | payer MEDICARE, OTHER ==
[2019-12-17 10:29] LABS: Mean Platelet Volume 8.3 fL (7.4-10.4); Platelet Count 234 10^3/uL (150-450)
[2019-12-17 10:40] LABS: Activated Partial Thrombo Time 34.8 seconds (26.0-38.0); INR 1.07 (0.82-1.09)
[2019-12-17] MEDS ORDERED: fentaNYL* 50 MCG/ML 2 ML VIAL (100 MCG VIAL) ONE ×2 (11:14→18:23)
[2019-12-17] MEDS ORDERED: Acetaminophen TAB* 325 MG ONE (13:39)
[2019-12-17] MEDS ORDERED: Acetaminophen TAB* 325 MG PO PRN (19:24)
[2019-12-17] MEDS ORDERED: Dextrose 50% Syringe 50 ML* 25 GM/50 ML SYRINGE IV PUSH PRN (19:24)
[2019-12-17] MEDS ORDERED: Ondansetron INJ* 2 MG/ML VIAL IV PRN (19:24)
--- NOTE | 2019-12-17 19:40 | BRIEFOPN ---
Brief Operative/Procedure Note - Operation Details Pre-Op Diagnosis: Growing left side pneumothorax status post CT guided left upper lobe pulmonary nodule biopsy. Post-Op Diagnosis: Growing left side pneumothorax status post CT guided left upper lobe pulmonary nodule biopsy. Procedures: Bedside placement of 8 Bengali chest tube between the left anterior 2 /3 intercostal space. Surgeon(s)/Proceduralists: Richard Walsh MD Anesthesia: Local lidocaine and 50 mcg fentanyl IV Estimated Blood Loss: Zero Findings: Post chest tube placement demonstrates reduced PTX Specimen(s)/Culture(s) Description: None Complications: None
[2019-12-17] MEDS ORDERED: Diltiazem CD CAP* 180 MG PO SCH (21:00)
[2019-12-17] MEDS ORDERED: metFORMIN* 500 MG TAB PO SCH (21:00)
[2019-12-17] MEDS: Apixaban* 5 MG TAB PO SCH (21:15)
--- NOTE | 2019-12-17 21:35 | HP ---
CC: Dr. Nieves; Dr. Walsh * HISTORY AND PHYSICAL: DATE OF ADMISSION: 12/17/19 PRIMARY CARE PROVIDER: Dr. Nieves. ATTENDING PHYSICIAN WHILE IN THE HOSPITAL: Dr. Jailene Kerr * (report dictated by Edgard Enciso NP). CHIEF COMPLAINT: 1. Shortness of breath. 2. Pneumothorax. HISTORY OF PRESENT ILLNESS: Mr. Kaur is a 79-year-old male patient, who was found to have a pulmonary nodule, has a history of malignant melanoma. He underwent PET scan surveillance on 11/27/19, found to have lesions in his lungs. He underwent biopsy today with Dr. Walsh. Unfortunately, there was complication of a pneumothorax. Because of this, we were asked to evaluate for admission. The patient states he is doing well. Currently, he is not short of breath. Heimlich valve was placed. He denies any chest pain. He does have some incisional pain from the biopsy site, but he states that he does not feel short of breath. Denies having any pressure, chest heaviness or tightness. He denies feeling recently ill. Denies recent cough, cold, fever or chills. Because of the pneumothorax, we were asked to evaluate for admission. PAST MEDICAL HISTORY: Significant for: 1. Diabetes. 2. Hypertension. 3. Melanoma. 4. CVA. 5. Type 2 diabetes. 6. Atrial fibrillation. PAST SURGICAL HISTORY: 1. He has had cataract removal. 2. Lithotripsy. 3. Bladder surgery. 4. Colon resection. 5. ERCP. 6. Cholecystectomy. 7. Tonsillectomy. 8. Melanoma excision from the face. HOME MEDICATIONS: Home meds which were reviewed with his include: 1. Keytruda 1 dose IV every 21 days. 2. Glimepiride 4 mg daily. 3. Atorvastatin 20 mg daily. 4. Apixaban 5 mg p.o. b.i.d. 5. Tylenol 650 mg every 6 hours as needed. 6. Glucophage 500 mg p.o. b.i.d. 7. Lisinopril 10 mg daily. 8. Diltiazem 180 mg p.o. q.p.m. ALLERGIES TO MEDICATIONS: No known drug allergies. FAMILY HISTORY: His father committed suicide. The mother had a history of MS. SOCIAL HISTORY: Former smoker. He does not drink alcohol. Surrogate decision maker is his . REVIEW OF SYSTEMS: There is no documented fever. He denied having any significant weight change. There is no double vision. He denied having any ear discharge. There is no rhinorrhea, no sore throat, no thyroid enlargement. He denied any chest pain. There is no orthopnea, no nocturnal dyspnea. Denies having any abdominal pain. No nausea, no vomiting. No dysuria, no frequency, no seizure, no loss of consciousness, no pruritus, and no skin ulcerations. Review of 14 systems completed, all others are negative. PHYSICAL EXAMINATION GENERAL: At this time, Mr. Kaur is a 79-year-old male patient, he is sitting in the stretcher in the imaging department. He appears to be well nourished and well developed. VITAL SIGNS: Blood pressure 132/79, pulse 73, respirations 18, O2 sat 96% on room air, temperature 99.7. HEENT: Head: Atraumatic and normocephalic. Eyes: EOMs are intact. Sclerae anicteric and not pale. Throat: Oral mucosa appears to be moist. No oropharyngeal erythema. NECK: Supple. LUNGS: Clear to auscultation bilaterally. No wheezes, rales or rhonchi. HEART: Heart sounds S1, S2. Regular rate and rhythm. No murmurs, rubs or gallops. ABDOMEN: Soft, flat. Nontender. Bowel sounds are present. EXTREMITIES: Pulses were 2+ throughout. He is moving all 4 extremities with 5/ 5 strength. NEUROLOGIC: He is awake, alert, and oriented x3. Tongue midline. Electrifier Operator are equal. No focal deficits. SKIN: Grossly intact. DIAGNOSTIC STUDIES/LAB DATA: Labs: Platelet count of 233, INR 1.07, PTT 34.8. He had several chest x-rays. The most recent chest x-ray shows a resolution of the left-sided pneumothorax, status post small bore chest tube placement. Old medical records were reviewed. ASSESSMENT AND PLAN: Mr. Kaur is a 79-year-old male patient coming into the interventional radiology today for a pulmonary nodule biopsy, unfortunately sustained of pneumothorax. Heimlich valve was placed. He will be admitted on observation status for: 1. Pneumothorax. At this point, I will differ further management to Dr. Walsh and his team. The pneumothorax has resolved. We will monitor him overnight for any worsening shortness of breath. If he has any complication, we certainly will touch-base with Dr. Walsh immediately, but at this point we will continue with current medical regimen. 2. Atrial fibrillation. I did discuss this with Dr. Walsh. He said it was okay to go ahead and start Eliquis tonight, which I have ordered. 3. Diabetes type 2, non-insulin dependent. While he is here in the hospital, I put him on a sliding scale. 4. Hypertension. We will continue his meds as prescribed. 5. Hyperlipidemia. Continue statin therapy. 6. History of melanoma. He will continue with Keytruda as prescribed and will follow up with Dr. Espinal. 7. DVT prophylaxis: He is on Eliquis. 8. Code status: Full code. 9. Fluids, electrolytes, and nutrition: He can have consistent carb diet. TIME SPENT: Time on the admission was 60 minutes; greater than half time spent [id number] with the patient, obtaining my history and physical and the other half time was spent implementing plan of care. I discussed the plan of care with my attending Dr. Kerr, who is in agreement. EDGARD ENCISO, ROVERTO [id number]/[facility] #: [id number] [facility]
[2019-12-18 05:49] LABS: ABS Basophils 0.1 10^3/ul (0-0.2); ABS Eosinophils 0.1 10^3/ul (0-0.6); ABS Lymphocytes 1.4 10^3/ul (1.0-4.8); ABS Monocytes 0.8 10^3/ul (0-0.8); ABS Neutrophils 5.1 10^3/ul (1.5-7.7); Eosinophil % 1.5 %; Hematocrit 45 % (42-52); Hemoglobin 15.3 g/dL (14.0-18.0); Lymphocyte % 18.6 %; Mean Corpuscular HGB Conc 34 g/dL (31-36); Mean Corpuscular Hemoglobin 30 pg (27-31); Mean Corpuscular Volume 87 fL (80-94); Platelet Count 222 10^3/uL (150-450); Red Blood Count 5.19 10^6 /uL (4.18-5.48); Red Cell Distribution Width 15 % (10-15); White Blood Count 7.4 10^3/uL (3.5-10.8)
[2019-12-18 06:00] LABS: INR 1.26 (0.82-1.09)
[2019-12-18 06:07] LABS: BUN/Creatinine Ratio 16.7 (8-20); Calcium 9.3 mg/dL (8.6-10.3); EGFR African American 75.4 (>60); EGFR Non-African American 62.3 (>60)
[2019-12-18 06:08] LABS: Potassium 5.2 mmol/L (3.5-5.0)
[2019-12-18] MEDS ORDERED: Insulin LISPRO* 1 UNITS UNIT SUBCUT SCH (07:30)
[2019-12-18] MEDS ORDERED: CMCS:Glimepiride (NF) 2 MG TAB PO SCH (08:30)
[2019-12-18] MEDS ORDERED: Lisinopril TAB* 10 MG PO SCH (09:00)
[2019-12-18] MEDS ORDERED: Atorvastatin* 20 MG TAB PO SCH (09:00)
[2019-12-18 10:13] VITALS: BP 144/73
[2019-12-18] MEDS: Apixaban* 5 MG TAB PO SCH (10:33)
--- NOTE | 2019-12-18 11:29 | PN ---
Progress Note - Progress Note Date of Service: 12/18/19 SOAP: Subjective: [Arturo was admitted yesterday after a CT guided lung biopsy which unfortunately resulted in a chest tube placement. Biopsy sample was reportedly adequate. He reports feeling well this morning. Chest tube has been clamped for an hour and repeat CXR pending. Objective: [ Vital Signs: Temp Pulse Resp BP Pulse Ox 98.7 F 70 16 144/73 96 12/18/19 08:00 12/18/19 08:00 12/18/19 08:00 12/18/19 08:00 12/18/19 08:00 Acetaminophen (Tylenol Tab*) 650 mg PO Q4H PRN PRN Reason: PAIN - MILD Last Admin: 12/17/19 20:54 Dose: 650 mg Apixaban (Eliquis*) 5 mg PO BID [facility] Last Admin: 12/18/19 10:33 Dose: 5 mg Atorvastatin Calcium (Lipitor*) 20 mg PO QAM [facility] Last Admin: 12/18/19 10:33 Dose: 20 mg Dextrose (D50w Syringe 50 Ml*) 12.5 gm IV PUSH .FOR FS < 60 - SS PRN PRN Reason: FS < 60 Last Admin: 12/18/19 08:23 Dose: 12.5 gm Diltiazem HCl (Cardizem Cd Cap*) 180 mg PO BEDTIME [facility] Last Admin: 12/17/19 20:54 Dose: 180 mg Ondansetron HCl (Zofran Inj*) 4 mg IV Q6H PRN PRN Reason: NAUSEA Laboratory Results - last 24 hr 12/18/19 12/18/19 12/18/19 05:37 05:37 05:37 WBC 7.4 RBC 5.19 Hgb 15.3 Hct 45 MCV 87 MCH 30 MCHC 34 RDW 15 Plt Count 222 MPV 8.0 Neut % (Auto) 68.3 Lymph % (Auto) 18.6 [place] % (Auto) 10.8 Eos % (Auto) 1.5 Baso % (Auto) 0.8 Absolute Neuts (auto) 5.1 Absolute Lymphs (auto) 1.4 Absolute Monos (auto) 0.8 Absolute Eos (auto) 0.1 Absolute Basos (auto) 0.1 Absolute Nucleated RBC 0.0 Nucleated RBC % 0.0 INR (Anticoag Therapy) 1.26 H Sodium 139 Potassium 5.2 H Chloride 103 Carbon Dioxide 29 Anion Gap 7 BUN 19 Creatinine 1.14 Est GFR ( Amer) 75.4 Est GFR (Non-Af Amer) 62.3 BUN/Creatinine Ratio 16.7 Glucose 173 H POC Glucose (mg/dL) Calcium 9.3 12/18/19 08:08 WBC RBC Hgb Hct MCV MCH MCHC RDW Plt Count MPV Neut % (Auto) Lymph % (Auto) [place] % (Auto) Eos % (Auto) Baso % (Auto) Absolute Neuts (auto) Absolute Lymphs (auto) Absolute Monos (auto) Absolute Eos (auto) Absolute Basos (auto) Absolute Nucleated RBC Nucleated RBC % INR (Anticoag Therapy) Sodium Potassium Chloride Carbon Dioxide Anion Gap BUN Creatinine Est GFR ( Amer) Est GFR (Non-Af Amer) BUN/Creatinine Ratio Glucose POC Glucose (mg/dL) 56 L Calcium Exam: Gen: Well appearing 79 yo male in NAD HEENT: MMM CV: RRR, no m/r/g Resp: CTA, good airexchange - CT in place and clamped Abd: soft Ext: trace edema] Assessment: [79 yo male with locally advanced melanoma receiving pembrolizumab with new lung nodules concerning for metastatic disease. He was referred for lung biopsy after EBUS demonstrated benign tissue. He is now admitted for management of a pneumothorax post procedure. He is clinically doing quite well. Plan: [1. Pneumothorax - management per primary team 2. Melanoma - biopsy results pending - plan to review with patient as soon as they are available. - if discharged today then he has follow up with Dr Espinal tomorrow as an outpatient to review pathology results Dispo: oncology will follow closely upon discharge
--- NOTE | 2019-12-18 13:49 | PN ---
Progress Note - Progress Note Date of Service: 12/18/19 SOAP: Subjective: Patient denies SOB or significant chest pain. "Little tender" at chest tube site with deep inspiration, but "not too bad". Objective: Selected Entries 12/18/19 08:00 Temperature 98.7 F Temperature Temporal Artery Source Scan Pulse Rate 70 Respiratory 16 Rate Blood Pressure 144/73 (mmHg) Blood Pressure 96 Mean O2 Sat by Pulse 96 Oximetry NAD, Sitting up in bed, conversant with and son nearby Chest tube in place. No bleeding at dressing. Minimal tenderness to palpation at tube site Positive normal lung sounds CXRs: 1st AM chest xray showed resolution of PTX. 2nd chest xray after clamped tube for 1 hour showed trace PTX. Assessment: 79 YOM with small PTX POD #1 chest tube placement following CT guided left upper lobe nodule biopsy. Plan: 1. Patient will go home with chest tube in place attached to Heimlich valve. 2. Patient and his and son were advised to adjut the tube in any way and especially to not rotate the 3 way stock cock. 3. They were advised that should acute onset and/or worsening chest pain or SOB occur to seek emergency medical attention immediately. 4. They will present to [facility] imaging 12/20/19 at ~800AM for follow up chest xray. Assuming the PTX remains resolved I will then clamp the tube and repeat chest in 1-2 hours.
--- NOTE | 2019-12-18 23:32 | DS ---
CC: Dr. Nieves; Dr. Walsh; Dr. Espinal; RACHEL Urena; Dr. Vitale * DISCHARGE SUMMARY: DATE OF ADMISSION: 12/17/19 DATE OF DISCHARGE: 12/18/19 PRIMARY CARE PROVIDER: Dr. Nieves. DISPOSITION: Discharged to home. CONDITION ON DISCHARGE: Stable. DISCHARGE DIAGNOSIS: Post lung biopsy pneumothorax. SECONDARY DIAGNOSES: 1. Lung lymphadenopathy status post biopsy performed by Dr. Walsh on 12/17/19. 2. Diabetes, type 2. 3. Hypertension. 4. Melanoma. 5. Cerebrovascular accident. 6. Atrial fibrillation, on anticoagulation. MEDICATIONS AT DISCHARGE: Unchanged from admission and include: 1. Apixaban 5 mg b.i.d. 2. Lipitor 20 mg daily. 3. Diltiazem ER 180 mg daily. 4. Glimepiride 4 mg daily. 5. Lisinopril 10 mg daily. 6. Metformin 500 mg b.i.d. 7. Keytruda a dose every 21 days as directed. 8. Tylenol on a p.r.n. basis. PROCEDURES PERFORMED DURING THE HOSPITAL STAY: Included left-sided chest tube placement by Dr. Walsh, performed on 12/17/19. Most recent chest x-ray obtained on 12/18/19 at 11:15 a.m., impression: "Left chest tube in place, small left pneumothorax noticed." HOSPITALIZATION COURSE: Arturo Kaur is a 79-year-old male with a history of melanoma who was noted to have left-sided lung lymphadenopathy with positive PET scan findings, who was scheduled for outpatient lung biopsy with Dr. Walsh on 12/17/19. Post biopsy, he developed pneumothorax that was increasing throughout the evening on 12/17/19. At this point, Dr. Walsh decided to place a left-sided chest tube, which was performed in radiology suite. Postoperatively, the patient did not feel comfortable to be discharged and he was kept for overnight observation. On the day of discharge, the patient continued to have small pneumothorax. At this point, Dr. Walsh decided to continue to have the chest tube in place with Heimlich valve in place and for the patient to be discharged home. The patient is recommended to come back to radiology suite to see Dr. Walsh on Monday, at 8 a.m. for followup on his chest tube management. The patient also recommended to follow up with his primary care provider in the next 4 to 7 days. The patient also is recommended to follow up with Dr. Espinal and Dr. Espinal's office is going to call the patient with an appointment date. PHYSICAL EXAM: At the time of discharge, blood pressure of 144/73, heart rate of 70 and regular, respiratory rate 16, oxygen saturation 96% on room air, temperature 98.7. General: The patient is a pleasant 79-year-old male who is in no acute distress, the patient is alert and oriented x3. HEENT: Head: Atraumatic, normocephalic. Eyes: Pupils are equal, reactive to light and accommodation. Oropharynx is clear. Mucosa moist. Neck: Supple. No JVD. No bruits bilaterally. Cardiovascular: Regular rate and rhythm. No murmur. Respiratory: Clear to auscultation bilaterally. Abdomen: Soft, nontender. Bowel sounds are present in all 4 quadrants. Extremities: There is no edema. Pulses are +2 bilaterally. No clubbing or cyanosis. On evaluation of the skin , the patient has left upper lung chest tube in place with Heimlich valve. At discharge, the patient is recommended to follow up with Dr. Walsh as mentioned above. He was taught by Dr. Walsh how to take care of his left- sided chest tube with Heimlich valve in place. He is to come back to the ED if any worsening symptoms including but not limited to worsening chest pain, shortness of breath or fevers develop. Please note this is a short summary of the patient's hospitalization. Please refer to further medical record for details. [id number]/CPS #: [id number] [facility]
== END 2019-12-18 15:15 | disposition home or self-care (01) ==
LOC: SP 09:19 → SSU 19:21
PROVIDERS: ADMIT Internal Medicine Hematology & Oncology; ATTEND Internal Medicine
DX: J93.9 Pneumothorax, unspecified (principal); R06.02 Shortness of breath; R59.0 Localized enlarged lymph nodes; E11.9 Type 2 diabetes mellitus without complications; I10 Essential (primary) hypertension; C43.9 Malignant melanoma of skin, unspecified; I48.91 Unspecified atrial fibrillation; E78.5 Hyperlipidemia, unspecified; R91.8 Other nonspecific abnormal finding of lung field; Z86.73 Personal history of transient ischemic attack (TIA), and cerebral infarction without residual deficits; Z87.891 Personal history of nicotine dependence; Z79.899 Other long term (current) drug therapy; Z85.828 Personal history of other malignant neoplasm of skin; Z79.01 Long term (current) use of anticoagulants
CPT/HCPCS: 10009; 36415; 71045; 71046; 77012; 80048; 85025; 85049; 85610; 85730; 88172; 88173; 88177; 88305; 88341; 88342; 99225; A9270-GY; G0378; J3010

== ENCOUNTER 2019-12-23 09:52 | Observation (INO) | payer MEDICARE, OTHER ==
--- NOTE | 2019-12-23 10:16 | ED ---
Respiratory - HPI Summary HPI Summary: Patient is a 79 y/o M presenting to the ED for a chief complaint of left shoulder pain that began on 12/23/19. Patient states that he had a lung biopsy one week ago that showed the patient had a pneumothorax. After a follow up chest x-ray on 12/23/19 showed a worsening pneumothorax, patient was told to be seen at [facility] by Dr. Walsh. Patient denies shortness of breath or cough. PMHx is significant for atrial fibrillation, bladder stones, HTN, and DM. He takes Eliquis. PSHx of colostomy is denied. Patients medication reviewed this visit. - History of Current Complaint Chief Complaint: EDGeneral Stated Complaint: PNEUMOTHORAX IS GETTING BIGGER PER NURSE Time Seen by Provider: 12/23/19 09:54 Hx Obtained From: Patient Onset/Duration: Sudden Onset, Still Present Timing: Constant Initial Severity: Mild Current Severity: None Pain Intensity: 0 Sputum Amount: None - Allergy/Home Medications Allergies/Adverse Reactions: Allergies Allergy/AdvReac Type Severity Reaction Status Date / Time No Known Allergies Allergy Verified 12/23/19 09:58 Home Medications: Home Medications Apixaban* [Eliquis*] 5 mg PO BID 10/17/17 [History Confirmed 12/23/19] Glimepiride [Amaryl] 4 mg PO DAILY 10/17/17 [History Confirmed 12/23/19] dilTIAZem HCl [Diltiazem 24Hr ER (Cd)] 180 mg PO DAILY 10/17/17 [History Confirmed 12/23/19] lisinopriL [Lisinopril] 10 mg PO DAILY 10/17/17 [History Confirmed 12/23/19] metFORMIN* [Glucophage 500 MG TAB *] 500 mg PO BID 10/25/17 [History Confirmed 12/23/19] Atorvastatin* [Lipitor 20 MG*] 20 mg PO DAILY 03/01/19 [History Confirmed ] PMH/Surg Hx/FS Hx/Imm Hx Previously Healthy: Yes Endocrine/Hematology History: Reports: Hx Diabetes - on medcaition Denies: Hx Thyroid Disease Cardiovascular History: Reports: Hx Hypercholesterolemia, Hx Hypertension - CONTROLED W/RX, Hx Valvular Heart Disease, Other Cardiovascular Problems/ Disorders - Atrial Fibrillation-on Eliquis Denies: Hx Angina, Hx Coronary Artery Disease, Hx Myocardial Infarction, Hx Pacemaker/ICD Respiratory History: Reports: Other Respiratory Problems/Disorders - lymph node in lung: biopsy scheduled Denies: Hx Asthma, Hx Chronic Obstructive Pulmonary Disease (COPD), Hx Pulmonary Embolism GI History: Reports: Hx Gastroesophageal Reflux Disease - history of, after colon surgery 02/07-none recent, Hx Hiatal Hernia, Other GI Disorders - Colon [id number]-9/18 Denies: Hx Ulcer History: Reports: Hx Kidney Stones, Other Problems/Disorders - BLADDER STONES approx 40 years ago Denies: Hx Dialysis, Hx Renal Disease Musculoskeletal History: Reports: Hx Arthritis - HANDS, KNEES Denies: Other Musculoskeletal History Sensory History: Reports: Hx Cataracts - lens rt eye' 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 vision, Hx Contacts or Glasses - Glasses, Hx Hearing Aid - Bilateral hearing aids Denies: Hx Legally Blind, Hx Deafness Opthamlomology History: Reports: Hx Cataracts - lens rt eye' left eye no vision , Hx Contacts or Glasses - Glasses Denies: Hx Legally Blind EENT History: Denies: Hx Deafness Neurological History: Denies: Other Neuro Impairments/Disorders Psychiatric History: Denies: Hx Panic Disorder - Cancer History Cancer Type, Location and Year: SKIN MELANOMA, colon cancer - Surgical History Surgical History: Yes Surgery Procedure, Year, and Place: 1970s Bladder stones removed [facility]. 1970 PILONIDAL CYST REMOVED [facility]. 2018 Colon resection colon cancer [facility]. 2018 & x 2 Malignant melanoma removed from face x2 DR' S OFFICE. 2019 HAD SURGERY AT DONE AT [facility] & THEN GALL BLADDER REMOVED AT [facility] Hx Anesthesia Reactions: No Infectious Disease History: No Infectious Disease History: Denies: Hx Hepatitis, Hx Human Immunodeficiency Virus (HIV), History Other Infectious Disease, Traveled Outside the [place] in Last 30 Days - Family History Known Family History: Negative: Hypertension - Social History Occupation: Retired Lives: With Family Alcohol Use: Rare Alcohol Amount: 1-3 DRINKS/YEAR Hx Substance Use: No Substance Use Type: Reports: None Hx Tobacco Use: Yes Smoking Status (MU): Former Smoker Type: Cigarettes Amount Used/How Often: 2 YEARS while in college (AGE [age]) QUIT Have You Smoked in the Last Year: No Review of Systems Negative: Shortness Of Breath Positive: Arthralgia - Left shoulder All Other Systems Reviewed And Are Negative: Yes Physical Exam Triage Information Reviewed: Yes Vital Signs On Initial Exam: Initial Vitals Temp Pulse Resp BP Pulse Ox 98.6 F 96 20 137/84 93 12/23/19 09:54 12/23/19 09:54 12/23/19 09:54 12/23/19 09:54 12/23/19 09:54 Vital Signs Reviewed: Yes Procedures - Sedation Patient Received Moderate/Deep Sedation with Procedure: No Diagnostics - Vital Signs Vital Signs Temp Pulse Resp BP Pulse Ox 12/23/19 10:10 18 12/23/19 09:54 98.6 F 96 20 137/84 93 - Laboratory Lab Statement: Any lab studies that have been ordered have been reviewed, and results considered in the medical decision making process. Re-Evaluation - Re-Evaluation First Eval Re-Evaluation Time: 10:23 Change: Unchanged Comment: At 10:23, Dr. Quiroz, who is covering for Dr. Kent, will be consulted. Disposition - Physician Notifications Discussed Care Of Patient With: Liza Quiroz - At 11:39, Dr. Liza Quiroz reviewed the patients case and agrees to admit the patient to [facility]. Time Discussed With Above Provider: 11:39 Instructed by Provider To: Admit As Inpatient Discharge ED - Sign-Out/Discharge Documenting (check all that apply): Patient Departure - Admit - Discharge Plan Condition: Stable Disposition: ADMITTED TO [facility] Referrals: Trevon Nieves MD [Primary Care Provider] - - Attestation Statements Document Initiated by Scribe: Yes Documenting Scribe: Evelyn Edwards Provider For Whom Scribe is Documenting (Include Credential): Becky Moya MD Scribe Attestation: Evelyn Turner, scribed for Becky Moya MD on 12/23/19 at 1150. Status of Scribe Document: Ready
--- OUTSIDE RECORDS SUMMARY | 2019-12-23 10:25 | XMS REPORT | Continuity of Care Document ---
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 Medicine Problems Active Problems Provider Date Chronic atrial fibrillation Greg Velazquez MD Onset: 01/28/2016 Note: inpatient GOPAL cardioversion Cerebral artery occlusion Greg Velazquez MD Onset: 10/19/2017 History of polyp of colon Greg Velazquez MD Onset: 10/30/2017 Note: 9 plus cancer at initial colon exam after yrs refusing colonoscopy; Type 2 diabetes mellitus Greg Velazquez MD Onset: 02/27/2012 Social History Type Date Description Comments Sex Unknown Tobacco Use Start: Unknown End: Former Cigarette Smoker Unknown Smoking Status Reviewed: 12/04/19 Former Cigarette Smoker ETOH Use Rarely consumes alcohol Recreational Drug Use Denies Drug Use Tobacco Use Start: Unknown End: Patient is a former Smoked when he was Unknown smoker in teens Exercise Type/Frequency Exercises regularly Allergies, Adverse Reactions, Alerts Description No Known Drug Allergies Medications Active Medications SIG Qnty Indications Ordering Provider Date Diltiazem CD 1 by mouth 90caps Qutaybeh S. 180mg Caps every day Keyur Gibbons ER 24HR Lisinopril 1 by mouth 90tabs Qutaybeh S. 10mg Tablets every day Keyur Gibbons Eliquis 1 by mouth 180tabs Qutaybeh S. 5mg Tablets twice a day Maghaydah, M.D. Metformin HCL 1 by mouth Unknown 500mg twice a day Tablets Glimepiride 1 by mouth Unknown 4mg Tablets every day Atorvastatin Calcium 1 by mouth Unknown 20mg every day Tablets Immunizations Description No Information Available Vital Signs Date Vital Result Comment 12/04/2019 10:34am Height 67 inches 5'7" Weight 242.00 lb Heart Rate 74 /min BP Systolic Sitting 138 mmHg Lue large cuff BP Diastolic Sitting 78 mmHg Lue large cuff O2 % BldC Oximetry 94 % On Ra BMI (Body Mass Index) 37.9 kg/m2 08/05/2019 9:32am Heart Rate 72 /min BP Systolic 130 mmHg BP Diastolic 80 mmHg Respiratory Rate 18 /min Body Temperature 98.2 F Results Test Acquired Date Facility Test Result H/L Range Note Laboratory test 07/26/2019 [facility] Surgical SEE RESULT [address] [place] [address] [phone] Laboratory test 07/26/2019 [facility] 129 mg/dL High 70-[address] [place] [address] [phone] 1 SEE RESULT BELOW Name: ARTURO KAUR : [address]: Michoacano Hoang MD Acct: [id number] Unit: [id number] AGE: 79 Location: OR Re07/26/19 SEX: M Status: [facility] SPEC: [id number] DAISHA: 07/26/19- SUBM DR: Michoacano Hoang MD REQ: [id number] RECD: [id number]/[id number] STATUS: SOUT _ ORDERED: LEVEL 3 FINAL DIAGNOSIS Gallbladder, cholecystectomy: -- Chronic cholecystitis. -- Cholelithiasis. PRE-OPERATIVE DIAGNOSIS K80.20 - Calculus of gallbladder without cholecystitis without obstruction GROSS DESCRIPTION The specimen is received in formalin labeled, Gallbladder, and consists of a 7.2 x 3.0 by up to 2.0 cm intact gallbladder. The serosa is smooth to wrinkled yellow-adorno with moderate adherent fat. Within the lumen there are a few alfredo-brown intact and fragmented choleliths ranging from 0.2 cm to 1.3 cm in greatest dimension admixed with a small amount of red-brown blood clot. The mucosa is granular to bosselated alfredo-brown with a small amount of alfredo-white stippling and the wall thickness measures up to 0.3 cm. Learning Coordinator sections, one cassette. Signed by and Reported on: Stacy Munoz MD 07/30/19 1107 END OF REPORT DEPARTMENT OF PATHOLOGY, [address] [place] [address] Kermit Willingham M.D. Director [facility] # [id number] 2 Asian Art Curator: [id number] Procedures Date Code Description Status 07/26/2019 12616 Laparoscopy Cholecystectomy Completed 07/26/2019 90546 Laparoscopy Cholecystectomy Completed 04/02/2019 47493614 Colonoscopy Completed Medical Devices Description No Information Available Encounters Type Date Location Provider Dx Diagnosis Office Visit 07/08/2019 Surgical Michoacano Hoang, K80.20 Calculus of 11:30a [facility] , FACS gallbladder w/o cholecystitis w/o obstruction Assessments Date Code Description Provider 12/04/2019 J98.4 Other disorders of lung Maria Esther Vitale MD 08/05/2019 K80.20 Calculus of gallbladder without RACHEL Daly cholecystitis without obstruction 07/26/2019 K80.10 Calculus of gallbladder with chronic Ramiro Kent MD cholecystitis without obstruction 07/26/2019 K80.10 Calculus of gallbladder with chronic Michoacano Hoang MD, FACS cholecystitis without obstruction 07/08/2019 K80.20 Calculus of gallbladder without Michoacano Hoang MD, FACS cholecystitis without obstruction Plan of Treatment Future Appointment(s):12/17/2019 9:00 am - Maria Esther Vitale MD at [facility]12/05/2019 9:45 am - Maria Esther Vitale MD at [facility]12/27/2019 3:20 pm - Lita Gibbons M.D. at [facility]12/23/2019 10:00 am - Zalma ECHO Schedule at [facility]12/04/2019 - Maria Esther Vitale MDJ98.4 Other disorders of lungNew Orders :Endobronchial Ultrasound (Ebus), Scheduled: 12/05/19Follow up:1 week Functional Status Description No Information Available Mental Status Description No Information Available Referrals Description No Information Available
[2019-12-23] MEDS ORDERED: Ondansetron INJ* 2 MG/ML VIAL IV PRN (11:39)
[2019-12-23] MEDS ORDERED: Dextrose 50% Syringe 50 ML* 25 GM/50 ML SYRINGE IV PUSH PRN (13:04)
--- NOTE | 2019-12-23 13:19 | HP ---
H&P (Free Text) History and Physical: DATE OF ADMISSION: 12/23/19 REASON FOR ADMISSION: Left pneumothorax HPI: Arturo Kaur is a 79-year-old man with a history of melanoma, hypertension, diabetes, atrial fibrillation who presented to the ED with a left pneumothorax after CT-guided biopsy. The patient underwent biopsy of a left upper lobe pulmonary nodule by Dr. Walsh on 12/17/19. A "blood patch" was injected, but he still developed a left pneumothorax post procedure. The pneumothorax continued to expand, and an 8 Indonesian chest catheter was placed by Dr. Walsh. He was admitted overnight. He was discharged home with a Heimlich valve on 12/18. On 12/20/19, he returned for a chest x-ray. The tube was clamped for 2 hours, but the follow-up chest x-ray showed a recurrent pneumothorax. The tube and Heimlich valve were kept in place. He returned today for follow-up x-ray. Imaging showed a large pneumothorax. He was then sent to the ED for surgery evaluation. The patient reports that he was feeling well up until last night. He felt more short of breath with exertion, and he also had upper chest and left shoulder pain. In the ED, he reports left shoulder pain but denies shortness of breath. He has otherwise been in his usual state of health. He denies fevers, abdominal pain, numbness early this, or change in balance. He takes Eliquis for atrial fibrillation and last dose was this morning. PMH: Diabetes type 2, hypertension, melanoma, history of CVA, atrial fibrillation PSH: Cataract removal, lithotripsy, bladder surgery, colon resection, ERCP, lap cholecystectomy, tonsillectomy, melanoma excision from the face Home Medications Medication Instructions Recorded Confirmed Type Apixaban* [Eliquis*] 5 mg PO BID 10/17/17 12/23/19 History Glimepiride [Amaryl] 4 mg PO DAILY 10/17/17 12/23/19 History dilTIAZem HCl [Diltiazem 24Hr ER 180 mg PO DAILY 10/17/17 12/23/19 History (Cd)] lisinopriL [Lisinopril] 10 mg PO DAILY 10/17/17 12/23/19 History metFORMIN* [Glucophage 500 MG TAB 500 mg PO BID 10/25/17 12/23/19 History *] Atorvastatin* [Lipitor 20 MG*] 20 mg PO DAILY 03/01/19 12/23/19 History Allergies No Known Allergies Allergy (Verified 12/23/19 09:58) FH: Father by suicide. Mother had a history of MS and from complications related to MS. 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 He lives with his . He quit smoking approximately 60 years ago. He denies alcohol or recreational drug use. ROS: A 10 point review of systems was obtained. Pertinent positive and negatives are in the HPI. PHYSICAL EXAM: Temp Pulse Resp BP Pulse Ox 98.2 F 83 18 134/76 97 12/23/19 14:37 12/23/19 14:37 12/23/19 14:43 12/23/19 14:37 12/23/19 14:37 General: No acute distress lying on the stretcher. Head: Normocephalic and atraumatic. Eyes: Pupils are equal. No scleral icterus. Mouth: Moist mucous membranes. Neck: Supple. Trachea midline. Cardiac: Regular rate and rhythm. Respiratory: Diminished breath sounds on the left. Clear to auscultation on the right. No accessory muscle use. Abdomen: Soft, nontender, nondistended. Extremities: Warm. No pedal edema. Skin: Warm and dry. Intact. Neuro: Alert and oriented 3. Moves all extremities equally. Psych: Affect normal. ASSESSMENT AND PLAN: 79-year-old man with left pneumothorax following lung biopsy. A 14 Indonesian chest tube was placed (see procedure note). I will admit the patient and keep the tube to -20 suction at least overnight. I told the patient and his that there is a chance this pneumothorax does not resolve with the chest tube alone. He may need to be transferred to a hospital with a thoracic surgeon if the pneumothorax does not resolve. I think it is reasonable to try conservative management for a few more days. Left pneumothorax- status post chest tube. Continue to -20 suction. May disconnect to go to the bathroom or to walk. Melanoma- Followed by Dr Espinal. His clinic was called to let his team know the patient is admitted. The patient says he is scheduled for an infusion this Wed, but he may still be admitted. The patient also is due for routine lab work today , and Dr Espinal's office will order the lab work to be done during this admission. Atrial fibrillation- Continue Eliquis. May need to hold if he will require a larger chest tube. HTN- Continue home lisinopril and diltiazem. Hyperlipidemia- Continue home atorvastatin. Diabetes type 2- Continue home glimepiride. Hold metformin. Fingersticks ACHS and sliding scale insulin. Consistent carb diet. Full code
--- NOTE | 2019-12-23 13:20 | OP ---
Operative Report - Blank - Operative Report Date of Operation: 12/23/19 Note: PRE-OP DX: Left pneumothorax after biopsy POST-OP DX: Same PROCEDURE: Placement of 14 Fr pigtail catheter SURGEON: Liza Quiroz MD [employer]: Clarke Devlin PA-C ANESTHESIA: Local (Lidocaine 1%, total of 5 ml.) INDICATION: Arturo Kaur is a 79-year-old man who underwent left upper lobe pulmonary nodule biopsy on 12/17/19 and developed a left pneumothorax. An 8 Iraqi chest tube was placed post procedure, which has been connected to a Heimlich valve. The patient returned today for follow-up chest x-ray which showed the chest tube in place but a large pneumothorax. He was sent to the ED for evaluation. The patient takes Eliquis for atrial fibrillation, which he last took this morning. I discussed with the patient that he is at higher risk for significant bleeding with a traditional chest tube since he is anticoagulated. I discussed upsizing the tube to a 14 Iraqi pigtail catheter which should be a lower risk of bleeding. Written consent was obtained from the patient. DESCRIPTION: The patient was in the supine position on the stretcher. A time out was called confirming the patient's name, date of , and procedure. The upper chest around the 8 Iraqi chest tube was prepped and draped in the usual sterile fashion. Lidocaine 1% was injected into the skin around the tube as well as into the subcutaneous tissue. A wire was passed through the 8 Iraqi chest tube , and the tube was removed. I dilated the tract. The 14 Iraqi tube was then advanced over the wire. There was minimal return of air into the Pleur-evac. The tube was sutured in place. A chest x-ray showed the tube likely in the subcutaneous tissue outside of the chest with persistent left pneumothorax. I discussed with the patient that the tube needs to be removed and replaced which he agreed to. The field was prepped and draped again. Lidocaine 1% was again injected into the skin around the tube. Lidocaine was also injected into the deeper tissue and into the pleura. The chest tube was removed. A needle with syringe was advanced into the chest cavity using the same site at the midclavicular line at the second intercostal space. The needle was advanced over the rib. Once there was return of air into the syringe, the wire was advanced through the needle. The needle was removed. The subcutaneous tissue and pleura were dilated. A new 14 Iraqi pigtail catheter was advanced over the wire. The pigtail catheter was connected to the Pleur-evac, and there was return of air. The catheter was sutured in place with 3-0 nylon. A sterile dressing was placed over the catheter and secured with Tegaderm. The patient tolerated the procedure well. A postprocedure chest x-ray showed the catheter in the correct position and expansion of the left lung.
[2019-12-23] MEDS: HYDROmorphone INJ* 0.5 MG/0.5 ML SYRINGE IV SLOW PU PRN ×2 (13:37→18:02)
[2019-12-23] MEDS: oxyCODONE TAB* 5 MG TAB PO PRN (14:43)
[2019-12-23] MEDS ORDERED: oxyCODONE TAB* 5 MG TAB PO PRN (17:58)
[2019-12-23] MEDS: Insulin LISPRO* 1 UNITS UNIT SUBCUT SCH ×2 (18:04→20:50)
[2019-12-23] MEDS: Diltiazem CD CAP* 180 MG PO SCH (19:58)
[2019-12-23] MEDS: Lisinopril TAB* 10 MG PO SCH (19:58)
[2019-12-23] MEDS: Atorvastatin* 20 MG TAB PO SCH (19:58)
[2019-12-23] MEDS: Apixaban* 5 MG TAB PO SCH (20:08)
[2019-12-24] MEDS: HYDROmorphone INJ* 0.5 MG/0.5 ML SYRINGE IV SLOW PU PRN ×2 (00:47→10:02)
[2019-12-24] MEDS ORDERED: Atorvastatin* 20 MG TAB PO SCH (09:00)
[2019-12-24] MEDS: Atorvastatin* 20 MG TAB PO SCH (09:18)
[2019-12-24] MEDS: Diltiazem CD CAP* 180 MG PO SCH (09:18)
[2019-12-24] MEDS: Lisinopril TAB* 10 MG PO SCH (09:18)
[2019-12-24] MEDS: Apixaban* 5 MG TAB PO SCH ×2 (09:18→21:19)
[2019-12-24] MEDS: CMCS: Glimepiride (NF) 2 MG TAB PO SCH (09:18)
[2019-12-24] MEDS: Insulin LISPRO* 1 UNITS UNIT SUBCUT SCH ×4 (09:18→21:19)
[2019-12-24] MEDS: Acetaminophen TAB* 325 MG PO PRN (09:22)
--- NOTE | 2019-12-24 10:08 | PN ---
Progress Note - Progress Note Date of Service: 12/24/19 Note: No acute events overnight. He did require pain medications which worked well to control the pain. He denies SOB or abdominal pain. He tolerated a regular diet without nausea. Afebrile. Vital Signs - 12 hr Temp Pulse Resp BP Pulse Ox 12/24/19 08:11 17 12/24/19 07:27 97.9 F 72 17 125/68 94 12/24/19 05:41 18 12/24/19 03:34 98.4 F 71 17 120/65 94 12/24/19 02:14 16 12/24/19 00:47 17 12/24/19 00:35 98.2 F 73 16 128/61 94 Intake & Output 12/23/19 12/24/19 12/24/19 22:59 06:59 14:59 Intake Total 150 480 Output Total 150 180 0 Balance 0 300 0 Intake: Oral 150 480 Output: Chest Tube #1 30 Urine 150 150 0 General: NAD CV: Irregular rhythm, normal rate. Resp: Clear to auscultation bilaterally, mild crackles at left base. Chest tube to suction. No air leak. Serosanguinous fluid in tube. Neuro: Alert and oriented x3. Moves all extremities equally. Psych: Affect normal A&P 79M with L ptx after lung biopsy. 14 Fr chest tube in place. -Water seal this morning, repeat CXR at noon. -May consider pulling tube later today if lung remains expanded. If ptx recurs, continue tube to suction. -Labs ordered per [facility] (for routine monitoring)
[2019-12-24 10:44] LABS: ABS Basophils 0.1 10^3/ul (0-0.2); ABS Eosinophils 0.2 10^3/ul (0-0.6); ABS Lymphocytes 1.2 10^3/ul (1.0-4.8); Eosinophil % 2.1 %; Hematocrit 46 % (42-52); Hemoglobin 15.5 g/dL (14.0-18.0); Lymphocyte % 11.6 %; Mean Corpuscular HGB Conc 34 g/dL (31-36); Mean Corpuscular Hemoglobin 29 pg (27-31); Mean Corpuscular Volume 87 fL (80-94); Mean Platelet Volume 8.2 fL (7.4-10.4); Platelet Count 232 10^3/uL (150-450); Red Blood Count 5.31 10^6 /uL (4.18-5.48); Red Cell Distribution Width 15 % (10-15); White Blood Count 10.6 10^3/uL (3.5-10.8)
[2019-12-24 11:10] LABS: Albumin 3.5 g/dL (3.2-5.2); Albumin/Globulin Ratio 1.2 (1-3); BUN/Creatinine Ratio 18.9 (8-20); Calcium 8.9 mg/dL (8.6-10.3); EGFR African American 77.7 (>60); EGFR Non-African American 64.2 (>60); Globulin 2.9 g/dL (2-4); Potassium 4.2 mmol/L (3.5-5.0); Total Protein 6.4 g/dL (6.4-8.9)
[2019-12-24 11:23] LABS: TSH (Thyroid Stimulating Horm) 4.54 mcIU/mL (0.34-5.60)
--- NOTE | 2019-12-24 13:09 | PN ---
Progress Note - Progress Note Date of Service: 12/24/19 SOAP: Subjective: []Feeling OK. Breathing is fine. Doesn't feel like it has ever really been an issue. Understands progressive disease and plan to initiate dual agent immunotherapy. has a couple questions regarding diagnosis as he was diagnosed with a stage 1 colon cancer in 2018 (resected with no adjuvant therapy indicated). Denies BELL, dizzines, change in vision, difficulty with balance, and perioral numbness. Medications: Acetaminophen (Tylenol Tab*) 650 mg PO Q4H PRN PRN Reason: PAIN-MILD/TEMP >/= 100.4 Last Admin: 12/24/19 09:22 Dose: 650 mg Apixaban (Eliquis*) 5 mg PO BID [facility] Last Admin: 12/24/19 09:18 Dose: 5 mg Atorvastatin Calcium (Lipitor*) 20 mg PO DAILY [facility] Last Admin: 12/24/19 09:18 Dose: 20 mg Dextrose (D50w Syringe 50 Ml*) 12.5 gm IV PUSH .FOR FS < 60 - SS PRN PRN Reason: FS < 60 Diltiazem HCl (Cardizem Cd Cap*) 180 mg PO DAILY [facility] Last Admin: 12/24/19 09:18 Dose: 180 mg Glimepiride (Glimepiride (Nf)) 4 mg PO DAILY [facility]; Protocol Last Admin: 12/24/19 09:18 Dose: 4 mg Hydromorphone HCl (Dilaudid Inj*) 0.5 mg IV SLOW PU Q1H PRN PRN Reason: PAIN - SEVERE Last Admin: 12/23/19 18:02 Dose: 0.5 mg Hydromorphone HCl (Dilaudid Inj*) 1 mg IV SLOW PU Q2H PRN PRN Reason: more severe pain Last Admin: 12/24/19 10:02 Dose: 1 mg Insulin Human Lispro (Humalog*) 0 units SUBCUT ACHS [facility]; Protocol Last Admin: 12/24/19 09:18 Dose: 2 units Lisinopril (Prinivil Tab*) 10 mg PO DAILY [facility] Last Admin: 12/24/19 09:18 Dose: 10 mg Ondansetron HCl (Zofran Inj*) 4 mg IV Q4H PRN PRN Reason: NAUSEA/VOMITING Oxycodone HCl (Roxycodone Tab*) 5 mg PO Q6H PRN PRN Reason: PAIN - MODERATE Last Admin: 12/23/19 14:43 Dose: 5 mg Oxycodone HCl (Roxycodone Tab*) 10 mg PO Q6H PRN PRN Reason: moderately severe pain Last Admin: 12/24/19 05:41 Dose: 10 mg Objective: [] Vital Signs Temp Pulse Resp BP Pulse Ox 99.1 F 75 18 117/69 95 12/24/19 11:09 12/24/19 11:09 12/24/19 12:07 12/24/19 11:09 12/24/19 11:09 A&Ox3, EOMI, neuro grossly non-focal [place] HRR, S1S2 LS dim. to left base, right clear - resp. even and non-labored LCW chest tube clamped, dressing CDI Laboratory Results - last 24 hr 12/24/19 12/24/19 12/24/19 10:35 10:35 12:41 WBC 10.6 RBC 5.31 Hgb 15.5 Hct 46 MCV 87 MCH 29 MCHC 34 RDW 15 Plt Count 232 MPV 8.2 Neut % (Auto) 75.5 Lymph % (Auto) 11.6 [place] % (Auto) 9.8 Eos % (Auto) 2.1 Baso % (Auto) 1.0 Absolute Neuts (auto) 8.0 H Absolute Lymphs (auto) 1.2 Absolute Monos (auto) 1.0 H Absolute Eos (auto) 0.2 Absolute Basos (auto) 0.1 Absolute Nucleated RBC 0.0 Nucleated RBC % 0.0 Sodium 138 Potassium 4.2 Chloride 103 Carbon Dioxide 28 Anion Gap 7 BUN 21 Creatinine 1.11 Est GFR ( Amer) 77.7 Est GFR (Non-Af Amer) 64.2 BUN/Creatinine Ratio 18.9 Glucose 173 H POC Glucose (mg/dL) 140 H Calcium 8.9 Total Bilirubin 1.00 AST 13 ALT 9 Alkaline Phosphatase 81 Total Protein 6.4 Albumin 3.5 Globulin 2.9 Albumin/Globulin Ratio 1.2 TSH 4.54 Assessment/Plan: []79 yo male with metastatic melanoma recently progressed with new mets to the lungs. I reviewed this with the family at length as there was mild confusion regarding a new primary versus mets. Additionally I reviewed recommendation by Dr. Espinal to transition to dual-agent immunotherapy with Ipilumumab and Nivolumab (was on Pembroluzimab) quickly reviewing monitoring for immune mediated side effects and schedule. He was admitted with recurrent pneumothorax currently being managed by surgery and may be discharged home this afternoon. Should he be discharged there is no contraindication to proceed with therapy. He will require a brain MRI in the near future to complete his staging, but we will not delay his systemic therapy for this as he asymptomatic.
[2019-12-24] MEDS: oxyCODONE TAB* 5 MG TAB PO PRN (21:19)
[2019-12-25 08:03] VITALS: BP 136/65
[2019-12-25] MEDS: CMCS: Glimepiride (NF) 2 MG TAB PO SCH (09:02)
[2019-12-25] MEDS: Acetaminophen TAB* 325 MG PO PRN (09:03)
[2019-12-25] MEDS: Atorvastatin* 20 MG TAB PO SCH (09:04)
[2019-12-25] MEDS: Diltiazem CD CAP* 180 MG PO SCH (09:05)
[2019-12-25] MEDS: Lisinopril TAB* 10 MG PO SCH (09:05)
[2019-12-25] MEDS: Insulin LISPRO* 1 UNITS UNIT SUBCUT SCH (09:06)
[2019-12-25] MEDS: Apixaban* 5 MG TAB PO SCH (09:06)
--- NOTE | 2019-12-25 09:47 | DS ---
ADMIT DATE: 12/23/19 DISCHARGE DATE: 12/25/19 REASON FOR ADMISSION: Left pneumothorax after lung biopsy PATIENT CONDITION: Stable PHYSICAL EXAM: Temp Pulse Resp BP Pulse Ox 98.3 F 67 16 136/65 95 12/25/19 07:40 12/25/19 07:40 12/25/19 04:17 12/25/19 07:40 12/25/19 07:40 General: No acute distress CV: Irregular rhythm. Normal rate. Respiratory: Clear to auscultation bilaterally. No accessory muscle use. No air leak from the chest tube. There is serosanguineous drainage from the chest tube. After chest tube was removed, there is an occlusive dressing over the site of the anterior chest. Extremities: Warm. No pedal edema. Neuro: Alert and oriented 3. Moves all extremities equally. Psych: Normal affect LABORATORY: Laboratory Results - last 24 hr 12/24/19 12/24/19 12/24/19 10:35 10:35 12:41 WBC 10.6 RBC 5.31 Hgb 15.5 Hct 46 MCV 87 MCH 29 MCHC 34 RDW 15 Plt Count 232 MPV 8.2 Neut % (Auto) 75.5 Lymph % (Auto) 11.6 [place] % (Auto) 9.8 Eos % (Auto) 2.1 Baso % (Auto) 1.0 Absolute Neuts (auto) 8.0 H Absolute Lymphs (auto) 1.2 Absolute Monos (auto) 1.0 H Absolute Eos (auto) 0.2 Absolute Basos (auto) 0.1 Absolute Nucleated RBC 0.0 Nucleated RBC % 0.0 Sodium 138 Potassium 4.2 Chloride 103 Carbon Dioxide 28 Anion Gap 7 BUN 21 Creatinine 1.11 Est GFR ( Amer) 77.7 Est GFR (Non-Af Amer) 64.2 BUN/Creatinine Ratio 18.9 Glucose 173 H POC Glucose (mg/dL) 140 H Calcium 8.9 Total Bilirubin 1.00 AST 13 ALT 9 Alkaline Phosphatase 81 Total Protein 6.4 Albumin 3.5 Globulin 2.9 Albumin/Globulin Ratio 1.2 TSH 4.54 PROCEDURE: Placement of 14 Fr chest tube HOSPITAL COURSE: Artuor Kaur is a 79-year-old man with a history of melanoma who underwent left lung biopsy on 12/17/19 in interventional radiology. He developed a left pneumothorax post procedure. An 8 [place]orese chest tube was placed. see H&P for further details. On 12/23/19 he returned for a follow-up chest x-ray with the chest tube to a Heimlich valve. The pneumothorax appeared larger. The patient was sent to the ED. In the ED, a 14 [place]orese chest tube was placed (see operative report). The patient was admitted to the surgery service. The tube was kept on suction at -20 overnight. On hospital day 2, the tube was placed to waterseal, and the follow-up x-ray did not show residual pneumothorax. However the chest tube became disconnected from the Pleur-evac. A follow-up x- ray showed a small pneumothorax and expiration. After discussing various options with the patient, it was decided that the patient would stay overnight for monitoring. The chest tube was kept to waterseal. A follow-up x-ray on did not show pneumothorax. The chest tube was removed at the bedside, and an occlusive dressing was placed at the site. Another x-ray confirmed that there was no recurrent pneumothorax. The oncology team saw the patient while he was admitted. He was due for routine labs the day he was admitted, which were drawn while he was in the hospital. The oncology team also talked with the patient about the lung biopsy results which showed metastatic melanoma. The patient is scheduled for an infusion on the day of discharge. DISPOSITION: Home DISCHARGE INSTRUCTIONS: Keep the occlusive dressing in place for at least 48 hours. The dressing may be removed after that time and replaced with a Band-Aid as needed. Follow-up in the surgery clinic as needed. CC: Rayshawn Espinal MD. Trevon Nieves.
== END 2019-12-25 11:24 | disposition home or self-care (01) ==
LOC: ED 09:52 → SSU 11:39
PROVIDERS: ADMIT Surgery Surgical Critical Care; ATTEND Surgery Surgical Critical Care
DX: J95.811 Postprocedural pneumothorax (principal); E11.9 Type 2 diabetes mellitus without complications; I10 Essential (primary) hypertension; I48.91 Unspecified atrial fibrillation; E78.00 Pure hypercholesterolemia, unspecified; K21.9 Gastro-esophageal reflux disease without esophagitis; Z79.01 Long term (current) use of anticoagulants; Z86.73 Personal history of transient ischemic attack (TIA), and cerebral infarction without residual deficits; Z79.899 Other long term (current) drug therapy; Z79.84 Long term (current) use of oral hypoglycemic drugs; Z87.442 Personal history of urinary calculi; Z85.828 Personal history of other malignant neoplasm of skin; Z85.038 Personal history of other malignant neoplasm of large intestine; Z87.891 Personal history of nicotine dependence
CPT/HCPCS: 36415; 71045; 71048; 80053; 84443; 85025; 96374; 96376; 99226; 99233; 99284; A9270-GY; G0378; J1170